=== PATIENT | female | born 1945 | race Caucasian/White ===

== ENCOUNTER 2019-05-25 14:42 | Outpatient (RCR) | payer OTHER, SELFPAY | END 2019-05-25 23:59 | disposition home or self-care (01) | LOC: ANHAUDIO 14:42 | PROVIDERS: PCP Physician Assistant; Visit Provider Physician Assistant | DX: Z46.1 Encounter for fitting and adjustment of hearing aid (principal) | CPT/HCPCS: 92593 ==

== ENCOUNTER 2019-11-08 09:21 | Emergency (ER) | payer MEDICARE, OTHER, SELFPAY ==
[2019-11-08 09:40] VITALS: BP 149/72; PULSE 60; RESP 16; TEMP 36.1; O2SAT 99
--- NOTE | 2019-11-08 09:47 | ED.URI ---
HPI - URI/Sore Throat General Chief Complaint: Upper Respiratory Infection Stated Complaint: Allergies Time Seen by Provider: 11/08/19 09:41 Source: patient, RN notes reviewed and old records reviewed Mode of arrival: ambulatory Limitations: no limitations History of Present Illness HPI Narrative: Patient presents today complaining of nasal congestion, postnasal drip, rhinorrhea since May with occasional cough. States cough is worsened over the last couple of days. Reports intermittent shortness of breath. Denies fever, ear pain, headache, nausea or vomiting. No known COVID-19 exposure. She has been using Zyrtec, Mucinex, and Flonase without much relief. MD elicited complaint: nasal congestion Related Data Allergies Allergy/AdvReac Type Severity Reaction Status Date / Time Sulfa (Sulfonamide Allergy Severe Swelling Verified 11/08/19 09:39 Antibiotics) nabumetone Allergy Intermediate raises BP Verified 11/08/19 09:39 Estrogens Allergy Mild rash Verified 11/08/19 09:39 Review of Systems Review of Systems: Narrative: CONSTITUTIONAL: Denies body aches, fever, chills, or sweats. EYES: Denies visual changes, redness, or discharge. ENT: Denies sore throat, or otalgia.+ Congestion, rhinorrhea, postnasal drip CARDIOVASCULAR: Denies chest pain, palpitations, or edema. RESPIRATORY: + Cough, intermittent shortness of breath GASTROINTESTINAL: Denies abdominal pain, nausea, vomiting, or diarrhea. GENITOURINARY: Denies dysuria or hematuria. SKIN: Denies rash, itching, or wounds. MUSCULOSKELETAL: Denies back pain, joint pain, or myalgia. NEUROLOGIC: Denies headache, numbness, tingling, or weakness. PSYCH: Denies depression or anxiety. [facility] Past Medical History Medical History (Updated 11/08/19 @ 09:50 by Mya Ritter, [employer]PER[employer], ) Seasonal allergies Social History Social History Smoking status: Never smoker Second hand tobacco smoke exposure: No Alcohol intake: current Gender identity (if verbalized by the patient): Female Comments At time of signature, I have reviewed and agree with nursing past medical, surgical, social and family history unless otherwise noted. Please see nursing chart for further information. There is no relevant family history pertinent to the presenting complaint Exam Narrative: Exam Narrative: GENERAL: Well-appearing, well-nourished, and in no acute distress. HEAD: Normocephalic, atraumatic. EYES: EOMI. No redness or drainage. Conjunctivae normal. ENT: Mucous membranes pink and moist. Nares mildly congested. No rhinorrhea. TMs normal bilaterally. Throat normal. Uvula midline. NECK: Normal AROM. Supple. No lymphadenopathy. CHEST: No respiratory distress. Clear to auscultation. HEART: Regular rate and rhythm. No murmur appreciated. Normal peripheral pulses. EXTREMITIES: Normal range of motion. No edema. SKIN: Warm, dry, no rash. Capillary refill normal. Normal skin turgor. NEURO: No focal deficits. Alert and oriented x3. Gait steady. PSYCH: Normal affect. No signs of depression or anxiety. Course Vital Signs Vital signs: Vital Signs Temperature 96.9 F L 11/08/19 09:40 Pulse Rate 60 11/08/19 09:40 Respiratory Rate 16 11/08/19 09:40 Blood Pressure 149/72 H 11/08/19 09:40 Pulse Oximetry 99 11/08/19 09:40 Temperature 96.9 F L 11/08/19 09:40 Pulse Rate 60 11/08/19 09:40 Respiratory Rate 16 11/08/19 09:40 Blood Pressure 149/72 H 11/08/19 09:40 Pulse Oximetry 99 11/08/19 09:40 Reviewed. Pt has been instructed to follow up with her PCP regarding her elevated blood pressure today. MDM - URI/Sore Throat Differential Diagnosis Differential diagnosis: Likely upper respiratory infection, otitis media, sinusitis, viral infection, bronchitis and other (Allergic rhinitis) Medical Records Attestation: I reviewed the patient's medical records. Critical Care Time Critical Care Time Critical Care T
== END 2019-11-08 10:04 | disposition home or self-care (01) ==
PROVIDERS: Emergency Provider Nurse Practitioner; PCP Internal Medicine
DX: J30.9 Allergic rhinitis, unspecified (principal)
CPT/HCPCS: 99213; G0463

== ENCOUNTER 2019-12-04 12:25 | Outpatient (RCR) | payer OTHER, SELFPAY | END 2019-12-04 23:59 | disposition home or self-care (01) | LOC: ANHAUDIO 12:25 | PROVIDERS: PCP Physician Assistant; Visit Provider Physician Assistant | DX: Z46.1 Encounter for fitting and adjustment of hearing aid (principal) | CPT/HCPCS: 92593 ==

== ENCOUNTER 2019-12-17 07:58 | Outpatient (CLI) | payer MEDICARE, OTHER, SELFPAY ==
--- NOTE | ~2019-12-17 | MM_ITS ---
EXAMINATION: MM screening lilli BI w marlyn HISTORY: Screening mammogram, family history of breast cancer in her mother. TECHNIQUE: Craniocaudal and mediolateral oblique 3-D tomosynthesis images were obtained and synthetic 2-D images were generated. CAD analysis was submitted and interpreted. COMPARISON: 10/31/2018, 10/29/2017, 10/18/2016 BREAST PARENCHYMAL COMPOSITION: There are scattered areas of fibroglandular density. FINDINGS: A stable benign mass is noted in the anterior third of the right breast. There is no eviden ce of suspicious mass, calcification, or architectural distortion to suggest malignancy in either erich ast. There has been no suspicious interval change. IMPRESSION: 1. No mammographic evidence of malignancy. 2. Recommend routine screening mammography in one year. BI-RADS Category 2: Benign finding(s). Reviewed, dictated and finalized at location A.
== END 2019-12-17 07:59 | disposition home or self-care (01) ==
PROVIDERS: PCP Physician Assistant; Visit Provider Physician Assistant
DX: Z12.31 Encounter for screening mammogram for malignant neoplasm of breast (principal)
CPT/HCPCS: 77063; 77067

== ENCOUNTER 2019-12-17 08:51 | Outpatient (CLI) | payer MEDICARE, OTHER, SELFPAY | END 2019-12-17 08:52 | disposition home or self-care (01) | LOC: ANHAUDIO 08:53 | PROVIDERS: PCP Physician Assistant; Visit Provider Physician Assistant | DX: H90.3 Sensorineural hearing loss, bilateral (principal) | CPT/HCPCS: 77063; 77067; 92557; 92567 ==

== ENCOUNTER 2020-05-20 10:57 | Outpatient (CLI) | payer MEDICARE, OTHER, SELFPAY ==
--- NOTE | ~2020-05-20 | XR_ITS ---
EXAMINATION: XR knee LT 3V DATE: 05/20/2020 11:19 INDICATION: Left knee pain. TECHNIQUE: 3 views of left knee were obtained. COMPARISON: Left knee radiograph 08/27/2016 FINDINGS: Bone alignment is normal. No fracture. There is mild tricompartmental osteoarthritis. No kn ee joint effusion. IMPRESSION: 1. Mild left knee osteoarthritis. Reviewed, dictated and finalized at location A. CE AGENT
== END 2020-05-20 10:58 | disposition home or self-care (01) ==
LOC: ANHIMG 11:00
PROVIDERS: PCP Physician Assistant; Visit Provider Physician Assistant
DX: M17.12 Unilateral primary osteoarthritis, left knee (principal)
CPT/HCPCS: 73562

== ENCOUNTER 2020-06-16 12:37 | Outpatient (CLI) | payer MEDICARE, OTHER, SELFPAY ==
--- NOTE | ~2020-06-16 | US_ITS ---
EXAMINATION: US soft tissue LE LT DATE: 06/16/2020 12:57 INDICATION: Left knee pain after activities. Assess for Lance's cyst. TECHNIQUE: Multiple grayscale and Doppler ultrasound images of the left popliteal fossa were obtained . COMPARISON: Left knee radiographs dated 05/20/2020 FINDINGS/IMPRESSION: No abnormal masses or fluid collections identified at the left popliteal fossa. Specifically no Lance 's cyst identified. Reviewed, dictated and finalized at location A.
== END 2020-06-16 12:38 | disposition home or self-care (01) ==
PROVIDERS: PCP Physician Assistant; Visit Provider Physician Assistant
DX: M25.562 Pain in left knee (principal)
CPT/HCPCS: 76882

== ENCOUNTER 2021-01-03 16:09 | Outpatient (CLI) | payer MEDICARE, OTHER, SELFPAY ==
--- NOTE | ~2021-01-03 | MM_ITS ---
EXAMINATION: MM screening lilli BI w marlyn HISTORY: Screening mammogram TECHNIQUE: Craniocaudal and mediolateral oblique 3-D tomosynthesis images were obtained and synthetic 2-D images were generated. CAD analysis was submitted and interpreted. COMPARISON: 12/17/2019, 10/31/2018, 10/29/2017 bilateral digital screening mammogram examinations BREAST PARENCHYMAL COMPOSITION: There are scattered areas of fibroglandular density. FINDINGS: Scattered bilateral benign calcifications are again noted. An irregular 8 mm opacity is suggested in the lower inner right breast (MLO Tomosynthesis image 59/85 ). Diagnostic right mammogram is recommended, with ultrasound if required. Otherwise there is no evidence of suspicious mass, calcification, or architectural distortion to sugg est malignancy in either breast. There has been no other suspicious interval change. IMPRESSION: 1. Lower inner quadrant right breast 8 mm irregular opacity 2. Diagnostic right mammogram is recommended, with ultrasound if required BI-RADS Category 0: Incomplete: Needs additional imaging evaluation. Reviewed, dictated and finalized at location A.
== END 2021-01-03 16:10 | disposition home or self-care (01) ==
LOC: ANHIMG 16:11
PROVIDERS: PCP Physician Assistant; Visit Provider Physician Assistant
DX: Z12.31 Encounter for screening mammogram for malignant neoplasm of breast (principal); R92.8 Other abnormal and inconclusive findings on diagnostic imaging of breast
CPT/HCPCS: 77063; 77067

== ENCOUNTER 2021-01-24 12:07 | Outpatient (CLI) | payer MEDICARE, OTHER, SELFPAY ==
--- NOTE | ~2021-01-24 | MMUS_ITS ---
EXAMINATION: MM diagnostic lilli RT w marlyn, US breast RT complete HISTORY: Lower inner quadrant right breast 8 mm irregular opacity on 01/03/2021 screening mammogram TECHNIQUE: Additional 3-D tomosynthesis images of the right breast were performed and synthetic 2-D i mages were generated. CAD analysis was submitted and interpreted. High resolution complete right eliana st ultrasound including all 4 quadrants and subareolar area was performed. COMPARISON: 01/03/2021 bilateral screening mammogram FINDINGS: MAMMOGRAPHIC FINDINGS: There is a circumscribed sonolucent millimeter opacity in the lower mid outer right breast (MLO Tomos ynthesis image 23/75). Focal 2 5 x 15 mm mammographic irregularity in the lower inner left breast (ML Tomosynthesis image 21 /75. ULTRASOUND: Right breast: 5 x 7 mm circumscribed sonolucent lesion with through transmission, consistent with be nign cyst. No other suspicious mass or any suspicious shadowing is detected. IMPRESSION: 1. Benign finding 2. Routine annual mammographic screening is recommended. BIRADS Category 2: Benign Reviewed, dictated and finalized at location A. [employer] IMPRESSION: 1. Benign finding 2. Routine annual mammographic screening is recommended. BIRADS Category 2: Benign
== END 2021-01-24 12:08 | disposition home or self-care (01) ==
PROVIDERS: PCP Physician Assistant; Visit Provider Physician Assistant
DX: R92.8 Other abnormal and inconclusive findings on diagnostic imaging of breast (principal)
CPT/HCPCS: 76641; 77061; 77065; G0279

== ENCOUNTER 2021-05-17 10:56 | Outpatient (CLI) | payer MEDICARE, SELFPAY | END 2021-05-17 10:57 | disposition home or self-care (01) | LOC: ANHAUDIO 10:59 | PROVIDERS: PCP Physician Assistant; Visit Provider Physician Assistant | DX: H90.3 Sensorineural hearing loss, bilateral (principal) | CPT/HCPCS: 92557; 92567 ==

== ENCOUNTER 2021-08-06 08:02 | Emergency (ER) | payer MEDICARE, SELFPAY ==
[2021-08-06 08:10] VITALS: BP 133/88; PULSE 97; RESP 16; TEMP 37.2; O2SAT 97
--- NOTE | 2021-08-06 08:10 | ED.URI ---
HPI - URI/Sore Throat General Chief Complaint: Upper Respiratory Infection Stated Complaint: cough/nausea/congestion Time Seen by Provider: 08/06/21 08:10 Source: patient, family, RN notes reviewed and old records reviewed Mode of arrival: ambulatory Limitations: no limitations History of Present Illness HPI Narrative: 76-year-old female presents to the [facility] with cough, nasal congestion. Patient states her symptoms are worse at night. Has having to sleep sitting up. Denies fevers, chest pain, abdominal pain. Patient states that she returned from [place] a week ago, symptoms started 3 days ago on . Takes Zyrtec daily. No treatment prior to arrival Related Data Home Medications Medication Instructions Recorded Confirmed cetirizine 10 mg tablet 5 mg PO DAILY PRN 11/18/19 09/15/20 fluticasone propionate 50 1 spray NASAL DAILY 11/18/19 09/15/20 mcg/actuation nasal spray,suspension hydroxyzine HCl 25 mg tablet 25 mg PO .HS PRN tablet 01/26/21 01/26/21 ketoconazole 2 % topical cream 1 applic TOPICAL DAILY 01/26/21 01/26/21 terbinafine HCl 250 mg tablet 250 mg PO DAILY 01/26/21 01/26/21 Allergies Allergy/AdvReac Type Severity Reaction Status Date / Time Sulfa (Sulfonamide Allergy Severe Swelling Verified 01/26/21 09:04 Antibiotics) nabumetone Allergy Intermediate raises BP Verified 01/26/21 09:04 Estrogens Allergy Mild rash Verified 01/26/21 09:04 ibuprofen [From Motrin] AdvReac vomiting Verified 01/26/21 09:04 Review of Systems Review of Systems: All systems reviewed & are unremarkable except as noted in HPI and below Constitutional: Constitutional: Reports no additional constitutional complaints, Denies chills, Denies fever(s) and Denies headache(s) Eyes: Eyes: Reports no additional eye complaints ENT: Reports as per HPI, Denies vertigo, Denies dizziness, Denies headache(s), Reports nasal congestion and Denies sore throat Cardiovascular: Cardiovascular: Reports no additional cardiovascular complaints, Denies chest pain, Denies syncope, Denies rapid heart rate and Denies dyspnea Respiratory: Respiratory: Reports as per HPI, Reports cough, Denies dyspnea and Denies wheezing Gastrointestinal: Gastrointestinal: Reports no additional gastrointestinal complaints, Denies abdominal pain, Denies diarrhea, Denies nausea and Denies vomiting Musculoskeletal: Musculoskeletal: Reports no additional musculoskeletal complaints and Denies numbness Integumentary/Breasts: Skin/Breast: Reports system reviewed and no additional complaints, except as docu Neurologic: Reports system reviewed and no additional complaints, except as documented, Denies vertigo, Denies dizziness, Denies syncope, Denies headache(s), Denies focal weakness and Denies numbness Psychiatric: Psychiatric: Reports no additional psychiatric complaints Allergic/Immunologic: Allergic/Immunologic: Reports no additional allergic/immunologic complaints and Denies wheezing PMFSH Past Medical History Medical History History of enlarged tonsils Seasonal allergies Surgical History Surgical History History of hysterectomy (~01/2020) History of lumpectomy History of tubal ligation (Unknown) Family History Family History Father Cerebrovascular accident Patient's father is Sibling Family history of arthritis Family history of malignant neoplasm of esophagus Patient's brother is Mother Family history of malignant neoplasm of breast in first degree relative Patient's mother is Social History Social History Smoking status: Never smoker Second hand tobacco smoke exposure: No Alcohol intake: current Gender identity (if verbalized by the patient): Female Comme
== END 2021-08-06 08:28 | disposition home or self-care (01) ==
PROVIDERS: Emergency Provider Nurse Practitioner; PCP Physician Assistant
DX: R09.82 Postnasal drip (principal); J30.9 Allergic rhinitis, unspecified
CPT/HCPCS: 99213; G0463

== ENCOUNTER 2021-12-26 10:47 | Outpatient (CLI) | payer MEDICARE, SELFPAY ==
--- NOTE | ~2021-12-26 | XR_ITS ---
EXAMINATION: XR chest 2V DATE: 12/26/2021 11:14 INDICATION: Atherosclerotic heart disease of [place] coronary arteries TECHNIQUE: PA and lateral views of the chest are obtained. COMPARISON: 02/24/2019 FINDINGS: The lungs are free of acute opacities. No pleural effusion or pneumothorax. The cardiomedia stinal silhouette is normal. There is mild thoracic spondylosis. IMPRESSION: 1. No acute cardiopulmonary abnormality. Reviewed, dictated and finalized at location A.
[2021-12-26 11:06] LABS: Basophils Absolute Auto 0.1 K/mm3 (0.0-0.1); Basophils Percent Auto 0.9 % (0.2-1.2); Eosinophils Absolute Auto 0.1 K/mm3 (0-0.3); Eosinophils Percent Auto 2.4 % (0-4.4); Hematocrit 42.5 % (37.0-47.0); Hemoglobin 14.1 g/dL (12.0-15.0); Lymphocytes Absolute Auto 2.29 K/mm3 (0.9-3.2); Lymphocytes Percent Auto 41.6 % (18.3-44.2); Mean Corpuscular HGB Conc 33.2 g/dl (32-36); Mean Corpuscular Hemoglobin 31.3 pg (26-34); Mean Corpuscular Volume 94.2 fl (80-100); Mean Platelet Volume 10.4 fl (7.4-10.4); Monocytes Absolute Auto 0.5 K/mm3 (0.1-0.6); Monocytes Percent Auto 8.9 % (2.6-8.5); Neutrophils Absolute Auto 2.6 K/mm3 (1.3-6.7); Neutrophils Percent Auto 46.2 % (45.5-73.1); Platelet Count Result 299 k/mm3 (150-375); Red Blood Count 4.51 M/mm3 (4.2-5.4); Red Cell Distribution Width 12.9 % (11.5-14.5); White Blood Count 5.5 K/mm3 (4.5-10.0)
[2021-12-26 11:31] LABS: Alanine Aminotransferase 33 U/L (6-35); Albumin Level 4.2 g/dL (3.5-5.1); Alkaline Phosphatase 71 U/L (38-126); Anion Gap 9 mmol/L (8-16); Aspartate Amino Transferase 28 U/L (14-36); Bilirubin,Total 0.4 mg/dL (0.2-1.3); Blood Urea Nitrogen 19 mg/dL (7-17); Carbon Dioxide 23 mmol/L (22-30); Chloride 109 mmol/L (98-107); Cholesterol 200 mg/dL (0-200); Estimated Glomerular Filt Rate > 60; Glucose 95 mg/dL (65-110); HDL Direct 52 mg/dL; Potassium 4.2 mmol/L (3.4-5.0); Sodium 141 mmol/L (137-145); Triglycerides 121 mg/dL (<150)
[2021-12-26 11:43] LABS: LDL Cholesterol Direct 104 mg/dL
[2021-12-26 12:38] LABS: Folic Acid 7.7 ng/mL (2.76->20)
== END 2021-12-26 10:48 | disposition home or self-care (01) ==
LOC: ANHLAB 10:51
PROVIDERS: PCP Physician Assistant; Visit Provider Physician Assistant
DX: E78.5 Hyperlipidemia, unspecified (principal); R53.83 Other fatigue; I25.10 Atherosclerotic heart disease of native coronary artery without angina pectoris
CPT/HCPCS: 36415; 71046; 80053; 80061; 82607; 82746; 84443; 85025

== ENCOUNTER 2022-01-12 15:44 | Emergency (ER) | payer MEDICARE, SELFPAY ==
[2022-01-12 15:53] VITALS: BP 130/85; PULSE 81; RESP 16; TEMP 36.1; O2SAT 100
--- NOTE | 2022-01-12 16:02 | ED.GENADULT ---
HPI - General Adult General Chief complaint: Weakness Stated complaint: not feeling well Time Seen by Provider: 01/12/22 16:02 Source: patient and RN notes reviewed Mode of arrival: ambulatory Limitations: no limitations History of Present Illness HPI narrative: 76-year-old female presents to the [facility] with complaints weakness near syncopal episode. Since the having her blood pressure medication changed 3 weeks ago. Patient reports multiple near syncopal episodes and intermittent dizziness that have been getting worse over the last several days sometimes associated with a headache on the right side. Denies any blurry vision or change in vision. Patient denies any chest pain but states that sometimes it feels like her heart is beating really fast and beating out of her chest. Patient states that she was [place] her [place], states she and felt really dizzy with leg weakness and felt like she was going to pass out. Denies any loss of consciousness. Has not fallen or hit head. Related Data Home Medications Medication Instructions Recorded Confirmed fluticasone furoate 27.5 2 spray intranasal DAILY 08/07/21 09/16/21 mcg/actuation nasal spray,suspension (Flonase Sensimist) azelastine 137 mcg (0.1 %) nasal intranasal 01/12/22 spray aerosol levocetirizine 2.5 mg/5 mL oral mg 01/12/22 solution (Xyzal) Allergies Allergy/AdvReac Type Severity Reaction Status Date / Time Sulfa (Sulfonamide Allergy Severe Swelling Verified 12/29/21 09:30 Antibiotics) nabumetone Allergy Intermediate raises BP Verified 12/29/21 09:30 Estrogens Allergy Mild rash Verified 12/29/21 09:30 ibuprofen [From Motrin] AdvReac vomiting Verified 12/29/21 09:30 Review of Systems Review of Systems: All systems reviewed & are unremarkable except as noted in HPI and below Constitutional: Constitutional: Reports no additional constitutional complaints, Denies chills and Denies fever(s) Eyes: Eyes: Reports no additional eye complaints ENT: Reports system reviewed and no additional complaints, except as documented Cardiovascular: Cardiovascular: Reports as per HPI and Reports rapid heart rate Respiratory: Respiratory: Reports no additional respiratory complaints Gastrointestinal: Gastrointestinal: Reports no additional gastrointestinal complaints Musculoskeletal: Musculoskeletal: Reports no additional musculoskeletal complaints Integumentary/Breasts: Skin/Breast: Reports system reviewed and no additional complaints, except as docu Neurologic: Reports as per HPI, Reports dizziness, Reports syncope (Near syncopal), Denies focal weakness, Denies numbness and Denies weakness Psychiatric: Psychiatric: Reports no additional psychiatric complaints Allergic/Immunologic: Allergic/Immunologic: Reports no additional allergic/immunologic complaints [facility] Past Medical History Medical History History of enlarged tonsils Seasonal allergies Surgical History Surgical History History of hysterectomy (~01/2020) History of lumpectomy History of tubal ligation (Unknown) Family History Family History Father Cerebrovascular accident Patient's father is Sibling Family history of arthritis Family history of malignant neoplasm of esophagus Patient's brother is Mother Family history of malignant neoplasm of breast in first degree relative Patient's mother is Social History Social History Smoking status: Never smoker Second hand tobacco smoke exposure: No Alcohol intake: current Gender identity (if verbalized by the patient): Female Comments At the time of my signature, I reviewed and agree with the nursing past medical, surgical, social, and family h
--- NOTE | 2022-01-12 16:15 | ECG_ITS ---
Measurements Intervals [place] Rate: 76 P: 75 WI: 159 QRS: 48 QRSD: 83 T: 69 QT: 360 QTc: 407 Interpretive Statements SINUS RHYTHM NORMAL ECG NO PREVIOUS ECG AVAILABLE FOR COMPARISON Electronically Signed On 01-12-2022 17:09:29 CDT by Stuart Marcos M.D.
== END 2022-01-12 16:22 | disposition short-term general hospital (02) ==
LOC: EXPCOLL 15:47
PROVIDERS: Emergency Provider Nurse Practitioner; PCP Physician Assistant
DX: R42 Dizziness and giddiness (principal)
CPT/HCPCS: 93005; 99213; G0463

== ENCOUNTER 2022-01-12 16:38 | Emergency (ER) | payer MEDICARE, SELFPAY ==
[2022-01-12] VITALS (7 sets, daily range): BP systolic 146–182; BP diastolic 76–106; PULSE 68–89; RESP 14–18; TEMP 36.5; O2SAT 96–100
--- NOTE | ~2022-01-12 | XR_ITS ---
EXAMINATION: XR chest 2V DATE: 01/12/2022 18:00 INDICATION: Dizziness. Weakness. TECHNIQUE: Frontal and lateral views of the chest were obtained. COMPARISON: Chest 2 views 12/26/2021 FINDINGS: There is mild scarring at the lung apices. No pleural effusion or pneumothorax. The heart s ize is normal. IMPRESSION: 1. Stable mild scarring at the lung apices. Reviewed, dictated and finalized at location A.
--- NOTE | ~2022-01-12 | CT_ITS ---
EXAMINATION: CT brain wo con DATE: 01/12/2022 22:02 INDICATION: Headache. Lightheadedness. TECHNIQUE: Computed tomography (CT) of the head was performed without intravenous contrast. The mA wa s adjusted according to patient size. Iterative reconstruction technique was employed. The dose-lengt h product was 529.67 mGy-cm. COMPARISON: None FINDINGS: There is no intracranial hemorrhage, acute infarction, or abnormal intracranial mass lesion . The ventricles are normal in size. There are likely changes of ocular lens replacement surgeries. T here is mucosal thickening in the paranasal sinuses. 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 Ther e is a left mastoid effusion. IMPRESSION: 1. Normal brain. Reviewed, dictated and finalized at location A. IMPRESSION: 1. Normal brain.
--- NOTE | 2022-01-12 17:35 | ECG_ITS ---
Measurements Intervals [place] Rate: 79 P: 59 HI: 149 QRS: 22 QRSD: 82 T: 61 QT: 354 QTc: 406 Interpretive Statements SINUS RHYTHM COMPARED TO ECG 01/12/2022 16:05:43 NO SIGNIFICANT CHANGES Electronically Signed On 01-13-2022 13:05:28 CDT by José Luis Cleary M.D.
[2022-01-12 18:02] LABS: Basophils Absolute Auto 0.1 K/mm3 (0.0-0.1); Basophils Percent Auto 0.7 % (0.2-1.2); Eosinophils Absolute Auto 0.1 K/mm3 (0-0.3); Eosinophils Percent Auto 1.9 % (0-4.4); Hematocrit 44.8 % (37.0-47.0); Hemoglobin 15.2 g/dL (12.0-15.0); Immature Granulocyte Absolute 0.02 K/mm3 (0.00-0.031); Immature Granulocyte Percent A 0.3 % (0-0.5); Lymphocytes Absolute Auto 2.69 K/mm3 (0.9-3.2); Lymphocytes Percent Auto 35.7 % (18.3-44.2); Mean Corpuscular HGB Conc 33.9 g/dl (32-36); Mean Corpuscular Hemoglobin 31.1 pg (26-34); Mean Corpuscular Volume 91.8 fl (80-100); Mean Platelet Volume 10.3 fl (7.4-10.4); Monocytes Absolute Auto 0.6 K/mm3 (0.1-0.6); Monocytes Percent Auto 7.6 % (2.6-8.5); Neutrophils Absolute Auto 4.1 K/mm3 (1.3-6.7); Neutrophils Percent Auto 53.8 % (45.5-73.1); Platelet Count Result 340 k/mm3 (150-375); Red Blood Count 4.88 M/mm3 (4.2-5.4); Red Cell Distribution Width 12.8 % (11.5-14.5); White Blood Count 7.5 K/mm3 (4.5-10.0)
[2022-01-12 18:12] LABS: Alanine Aminotransferase 35 U/L (6-35); Albumin Level 4.8 g/dL (3.5-5.1); Alkaline Phosphatase 87 U/L (38-126); Anion Gap 17 mmol/L (8-16); Aspartate Amino Transferase 30 U/L (14-36); Bilirubin,Total 0.4 mg/dL (0.2-1.3); Blood Urea Nitrogen 18 mg/dL (7-17); Calcium 9.1 mg/dL (8.4-10.2); Carbon Dioxide 23 mmol/L (22-30); Chloride 104 mmol/L (98-107); Estimated CRCL calculation 53 ml/min; Estimated Glomerular Filt Rate > 60; Glucose 109 mg/dL (65-110); Potassium 3.6 mmol/L (3.4-5.0); Sodium 144 mmol/L (137-145)
[2022-01-12 18:21] LABS: Appearance Urine Clear (Clear); Bilirubin Urine Negative (Negative); Blood Urine Negative (Negative); Color Urine Yellow (Yellow); Glucose Urine UA Negative (Negative); Ketones Urine Negative (Negative); Leukocyte Esterase Ur Negative LEU/UL (Negative); Nitrate Urine Negative (Negative); Protein Urine Negative (Negative); Urobilinogen Urine 0.2 mg/dL (<2.0)
[2022-01-12 18:27] LABS: RBC Urine 0-2 /hpf (0-2); Squamous Epithelial Cell Urine Rare /hpf (Few); WBC Urine 0-3 /hpf
[2022-01-12 18:32] LABS: Add Urine Microscopic? NO
--- NOTE | 2022-01-12 23:09 | ED.GENADULT ---
HPI - General Adult General Chief complaint: Nausea/Vomiting/Diarrhea Stated complaint: lightheaded, nausea, tired Time Seen by Provider: 01/12/22 21:35 History of Present Illness HPI narrative: Patient is a 76-year-old female who presents the emergency department with chief complaint of headache. Patient reports that she has been having a pressure sensation in her head and reports that recently she was diagnosed with hypertension. Patient was initially started on 50 mg of losartan and then subsequently has been increased to 100 mg of losartan. Patient states that she has had a little bit of a queasy sensation in her abdomen but no nausea vomiting or severe abdominal pain. The patient also reports that she has had an aching-like sensation in the right side of her head. Patient states this has been ongoing for some time now approximately 3 weeks. The patient has seen her primary care provider but has not had imaging of her head. Related Data Allergies Allergy/AdvReac Type Severity Reaction Status Date / Time Sulfa (Sulfonamide Allergy Severe Swelling Verified 01/12/22 21:09 Antibiotics) nabumetone Allergy Intermediate raises BP Verified 01/12/22 21:09 Estrogens Allergy Mild rash Verified 01/12/22 21:09 ibuprofen [From Motrin] AdvReac vomiting Verified 01/12/22 21:09 Review of Systems Review of Systems: A 10 system review of systems was completed on the patient and is negative except for what is stated in the HPI. Nursing and ancillary documentation was reviewed. [facility] Past Medical History Medical History History of enlarged tonsils Seasonal allergies Surgical History Surgical History History of hysterectomy (~01/2020) History of lumpectomy History of tubal ligation (Unknown) Family History Family History Father Cerebrovascular accident Patient's father is Sibling Family history of arthritis Family history of malignant neoplasm of esophagus Patient's brother is Mother Family history of malignant neoplasm of breast in first degree relative Patient's mother is Social History Social History Smoking status: Never smoker Second hand tobacco smoke exposure: No Alcohol intake: current Gender identity (if verbalized by the patient): Female Exam Narrative: GENERAL: Well-appearing, well-nourished, and in no acute distress. HEAD: Normocephalic, atraumatic. EYES: PERRLA and EOMI. ENT: Nares clear, no rhinorrhea or epistaxis. Mucous membranes moist. NECK: Supple. CHEST: Clear to auscultation. No respiratory distress. HEART: Regular rate and rhythm. No murmur heard. Normal peripheral pulses. ABDOMEN: Soft, nontender, nondistended, normal active bowel sounds. EXTREMITIES: Normal range of motion. No edema. SKIN: Warm, dry, no rash. NEURO: No focal deficits. Alert and oriented x3. PSYCH: Normal mood and affect. Course Course Emergency Course: CT head showed no evidence of acute intercranial pathology. EKG shows sinus rhythm rate of [address] elevation or ST depression Vital Signs Vital signs: Vital Signs Temperature 36.5 C 01/12/22 17:33 Pulse Rate 89 01/12/22 17:33 Respiratory Rate 14 01/12/22 17:33 Blood Pressure 153/106 H 01/12/22 17:33 Pulse Oximetry 98 01/12/22 17:33 Oxygen Delivery Room Air 01/12/22 17:33 Temperature 36.5 C 01/12/22 17:33 Pulse Rate 68 01/12/22 23:16 Respiratory Rate 18 01/12/22 23:16 Blood Pressure 150/76 H 01/12/22 23:16 Pulse Oximetry 99 01/12/22 23:16 Oxygen Delivery Room Air 01/12/22 17:33 Medical Decision Making Vital Signs Vital Signs: Vital Signs Temperature 36.5 C 01/12/22 17:33 Pulse Rate 89
[2022-01-12 23:58] LABS: Troponin I < 0.012 ng/mL (0.000-0.034)
[2022-01-13 00:24] VITALS: BP 103/77; PULSE 78; RESP 18; O2SAT 99
== END 2022-01-13 00:20 | disposition home or self-care (01) ==
PROVIDERS: Emergency Medicine; Emergency Provider Emergency Medicine; PCP Physician Assistant
DX: I10 Essential (primary) hypertension (principal); R51.9 Headache, unspecified; R11.0 Nausea
CPT/HCPCS: 36415; 70450; 71046; 80053; 81003; 84484; 85025; 93005; 99284

== ENCOUNTER 2022-03-21 07:39 | Outpatient (CLI) | payer MEDICARE, SELFPAY ==
--- NOTE | ~2022-03-21 | MM_ITS ---
EXAMINATION: MM screening [facility] BI w marlyn HISTORY: Screening mammogram TECHNIQUE: Craniocaudal and mediolateral oblique 3-D tomosynthesis images were obtained and synthetic 2-D images were generated. CAD analysis was submitted and interpreted. COMPARISON: 01/24/2021, 01/03/2021, 12/17/2019 BREAST PARENCHYMAL COMPOSITION: There are scattered areas of fibroglandular density. FINDINGS: No suspicious mass, calcification, or architectural distortion are identified in either erich ast to suggest malignancy. There has been no suspicious interval change. IMPRESSION: 1. No mammographic evidence of malignancy. 2. Recommend routine screening mammography in one year. BI-RADS Category 1: Negative Reviewed, dictated and finalized at location A. 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
== END 2022-03-21 07:40 | disposition home or self-care (01) ==
LOC: ANHIMG 07:41
PROVIDERS: PCP Physician Assistant; Visit Provider Physician Assistant
DX: Z12.31 Encounter for screening mammogram for malignant neoplasm of breast (principal)
CPT/HCPCS: 77063; 77067

== ENCOUNTER 2022-06-01 14:00 | Outpatient (RCR) | payer MEDICARE, SELFPAY | END 2022-06-01 23:59 | disposition home or self-care (01) | LOC: ANHAUDIO 14:00 | PROVIDERS: PCP Physician Assistant; Visit Provider Physician Assistant | DX: Z46.1 Encounter for fitting and adjustment of hearing aid (principal) | CPT/HCPCS: 92593 ==

== ENCOUNTER 2022-08-24 12:17 | Outpatient (CLI) | payer MEDICARE, SELFPAY ==
--- NOTE | ~2022-08-24 | XR_ITS ---
AP view of the pelvis and AP and lateral views of the right hip Clinical history: Pain Findings: No acute fracture or dislocation is seen. Osseous alignment is anatomic. Bilateral hip and SI joint spaces are preserved. Soft tissues are unremarkable. Impression: No significant abnormality is seen. Reviewed, dictated and finalized at [facility]. Impression: No significant abnormality is seen.
--- NOTE | ~2022-08-24 | XR_ITS ---
XR lumbar spine 6V w bending DATE: 08/24/2022 12:50 INDICATION: Back pain, sciatica TECHNIQUE: AP, bilateral oblique, lateral, coned lateral lumbosacral and standing flexion and extensi on views COMPARISON: None FINDINGS: There is osteopenia. There is mild degenerative disc disease at L1-2, L2-3 and L3-4. There is moderately severe loss of interspace height and minimal vacuum phenomenon at L4-5. L5-S1 interspace is well preserved. No fracture or bone destruction, spondylolysis or spondylolisthesis. The lumbar pedicles are intact. No instability on flexion or extension. The sacroiliac joints appear normal. IMPRESSION: Moderately severe degenerative disease at L4-5; mild degenerative disc disease at L1-2, L 2-3, L3-4 Reviewed, dictated and finalized at location [] IMPRESSION: Moderately severe degenerative disease at L4-5; mild degenerative d isc disease at L1-2, L2-3, L3-4
== END 2022-08-24 12:18 | disposition home or self-care (01) ==
PROVIDERS: PCP Physician Assistant; Visit Provider Physician Assistant
DX: M51.36 Other intervertebral disc degeneration, lumbar region (principal); M25.561 Pain in right knee; M25.551 Pain in right hip; M54.30 Sciatica, unspecified side
CPT/HCPCS: 72114; 73502; 73562

== ENCOUNTER 2022-08-26 08:41 | Emergency (ER) | payer MEDICARE, SELFPAY ==
[2022-08-26 08:43] VITALS: BP 152/91; PULSE 94; RESP 16; TEMP 36.2; O2SAT 98
--- NOTE | 2022-08-26 08:47 | ED.BACK ---
HPI - Back Pain/Injury General Chief Complaint: Back Pain/Injury Stated Complaint: back pain Time Seen by Provider: 08/26/22 08:46 History of Present Illness HPI Narrative: Patient is a 77-year-old female who presents ER with right knee pain. Reports its been ongoing over the last week. She was seen by her PCP. She had an x-ray of her right hip/knees and low back. She is scheduled to have an MRI in the near future. She has been taking [place]. Pain is worse when she is at rest and worsens around 4:30 in the afternoon. It seems to improve if she is walking around. Denies any trauma. No swelling or redness to the knee. No fevers chills or sweats. Reports some tingling to the right thigh. Patient reports she cannot sleep and would like different pain medication which is [place] is not helping. Related Data Allergies Allergy/AdvReac Type Severity Reaction Status Date / Time Sulfa (Sulfonamide Allergy Severe Swelling Verified 08/26/22 09:22 Antibiotics) nabumetone Allergy Intermediate raises BP Verified 08/26/22 09:22 Estrogens Allergy Mild rash Verified 08/26/22 09:22 ibuprofen [From Motrin] AdvReac vomiting Verified 08/26/22 09:22 Review of Systems Constitutional: Constitutional: Denies chills and Denies fever(s) Musculoskeletal: Musculoskeletal: Reports back pain, Reports arthralgias, Denies joint swelling and Denies muscle cramps Neurologic: Denies focal weakness and Denies numbness Comments: Right thigh tingling PMFSH Past Medical History Medical History History of enlarged tonsils Seasonal allergies Surgical History Surgical History History of hysterectomy (~01/2020) History of lumpectomy History of tubal ligation (Unknown) Family History Family History Father Cerebrovascular accident Patient's father is Sibling Family history of arthritis Family history of malignant neoplasm of esophagus Patient's brother is Mother Family history of malignant neoplasm of breast in first degree relative Patient's mother is Social History Social History Smoking status: Never smoker Second hand tobacco smoke exposure: No Alcohol intake: current Substance use: unknown Lack of Transportation: No Lack of Food: Never True Current Housing: I Have Housing Concerned About Future Housing: No Difficulty Paying Gas/Electric Bills: No Difficulty Paying for Meds: No Currently Unemployed: Decline to Answer Education: Decline to Answer Difficulty w/ Childcare or Family Care: Decline to Answer Gender identity (if verbalized by the patient): Female Exam Narrative: GENERAL: Well-appearing, well-nourished, and in no acute distress. HEAD: Normocephalic, atraumatic. CHEST: Clear to auscultation. No respiratory distress. HEART: Regular rate and rhythm. Normal peripheral pulses. BACK: No reproducible midline or paraspinal muscle tenderness of the T/L-spine. EXTREMITIES: Normal range of motion. No edema. No effusion or joint line tenderness to the right knee. SKIN: Warm, dry, no rash. NEURO: Alert and oriented x3. PSYCH: Normal mood and affect. Course Course Emergency Course: Pain improved with Percocet and patient is able to sleep. Discussed we will start her on Medrol Dosepak and give her a few Percocets for home. Discharge. I have reviewed previous imaging. Vital Signs Vital signs: Vital Signs Temperature 97.2 F L 08/26/22 08:43 Pulse Rate 94 08/26/22 08:43 Respiratory Rate 16 08/26/22 08:43 Blood Pressure 152/91 H 08/26/22 08:43 Pulse Oximetry 98 08/26/22 08:43 Temperature 97.2 F L 08/26/22 08:43 Pulse Rate 94 08/26/22 08:43 Respiratory Rate 16 08/26/22 08:43 Bloo
[2022-08-26] MEDS: oxyCODONE/ACETAMINOPHEN (*CRX) 5-325 MG TABLET 1 TABLET PO (09:20)
[2022-08-26 11:33] VITALS: BP 142/74; PULSE 87; RESP 18; O2SAT 100
== END 2022-08-26 11:34 | disposition home or self-care (01) ==
PROVIDERS: Emergency Provider Emergency Medicine; PCP Physician Assistant
DX: M25.561 Pain in right knee (principal); M54.16 Radiculopathy, lumbar region; Z90.710 Acquired absence of both cervix and uterus
CPT/HCPCS: 99283; A9270

== ENCOUNTER 2022-09-01 13:26 | Outpatient (CLI) | payer MEDICARE, SELFPAY ==
--- NOTE | ~2022-09-01 | MR_ITS ---
MRI of the lumbar spine Clinical History: Radiculopathy Technique: Axial T2-weighted images, and sagittal T1-weighted, T2-weighted, and T2 fat-sat images wer e acquired. Findings: There is no fracture or subluxation of the lumbar spine. Vertebral bodies maintain normal h eight and alignment. No suspicious bone marrow signal abnormality seen. At L1-L2, there is no disc bulge or herniation. There is moderate facet arthropathy. No spinal canal stenosis or neural foraminal narrowing. At L2-L3, there is moderate facet arthropathy with minimal disc bulge. No central canal stenosis or n eural foraminal narrowing. At L3-L4, there is minimal disc bulge with moderate facet arthropathy. No central canal stenosis or d efinite neural foraminal narrowing. At L4-L5, there is no significant disc bulge or herniation. There is mild facet arthropathy. No centr al canal stenosis or neural foraminal narrowing. At L5-S1, there is no disc bulge or herniation. There is advanced facet arthropathy. No central canal stenosis or neural foraminal narrowing. Paravertebral soft tissues are unremarkable. Impression: Minimal degenerative changes, as above. Reviewed, dictated and finalized at location . Impression: Minimal degenerative changes, as above.
== END 2022-09-01 13:27 | disposition home or self-care (01) ==
PROVIDERS: PCP Physician Assistant; Visit Provider Physician Assistant
DX: M54.16 Radiculopathy, lumbar region (principal)
CPT/HCPCS: 72148

== ENCOUNTER 2022-10-16 08:00 | Outpatient (RCR) | payer MEDICARE, SELFPAY ==
--- NOTE | 2022-09-04 11:00 | PTOPEVAL1 ---
Assessment and note entered by Catherine Simental, PT Evaluation Information Assessment Status Evaluation Diagnosis sciatica Onset August 20, 2022 Subjective Information woke up with R leg pain-throb in leg and knee, saw ferdinand Desai script received, continued to have pain; to ER August 26, received oxycodone, helped sleep some; had MRI-- no longer taking oxycodone- made feel funny; using the thermacare heat pad with magnets and that helped; active lifestyle--do water aerobics, tia-chi, pickle ball; indep with all home and self care tasks; Reported Pain Level Pain Score Self Report Additional Pain Score Comments pain range in the past week 3-12/25; back pain, radicular intermittent into R LE to knee; back tight and hurts; increase pain with sleeping, 2-7 hours/night (norm for her 8 hours); sitting tolerance varies 1-30 min; decrease pain; change positions, thermacare heat pads with magnets; heat; Assessment PT Clinical Summary Cara has the diagnosis of sciatica, intermittent into R LE to knee. She has a history of chronic back pain, but about 2 weeks ago, woke up with R leg pain and went to ER. The pain has improved from initial onset, but is limiting her activity tolerance and sleeping. She has an active lifestyle, has fitness membership--does aquatic exercises and moose-chi classes. Oswestry self assessment functional score of 34% limitation. She has a vacation planned next week, driving to [place] and wants to feel better to enjoy her vacation trip. With the evaluation, she has tightness over R and L: hamstrings and anterior hip/quad muscles; weakness over trunk/abdominals; pain was not elicited with motions of the evaluation, but reported some cramps in hips. Standing posture with weight shift to L LE. Skilled PT services are indicated for modalities to decrease pain, therapeutic exercises to increase flexibility of hips and strengthen trunk, with education for home exercises, pain control and posture.
--- NOTE | 2022-09-04 11:02 | PCPTNOTE ---
pt will be out of town from September 13 to September 26;
--- NOTE | 2022-10-16 08:43 | PTOPDC ---
Assessment and note entered by Catherine Simental, PT Evaluation Information Assessment Status Discharge Diagnosis sciatica Onset August 20, 2022 Subjective Information Cara reports: she is doing much better, have started back with the water exercises and doing them without any problems; has been doing the exercises and stretches at home and they really help; wants to get back to playing pickleball and doing weight exercises at the gym; ready to be finished with therapy and do the exercises on her own. Reported Pain Level Pain Score Self Report Additional Pain Score Comments in the past week, has not had any pain in her back but some ache and soreness 1/10; no pain into R leg anymore; L knee gives her some trouble-feels like buckling sometimes; sitting for about 1 hour, then have to get up and move, legs hurt; Oswestry self assessment functional score of 8% limitation; not have as many leg cramps as before sleeping through the night, not awakening due to pain; Assessment PT Clinical Summary Cara has received 8 PT sessions. She has improved in all areas: pain decreased from 3-10/10 to 0-1/10; no radicular pain into R LE; sitting and sleeping tolerances- no longer awaken from sleep due to back pain; flexibility of hamstrings and anterior hip-quad muscles; trunk and LE strength; Oswestry self assessment functional score from 34% to 8% limitation in activity; education completed for pain management and self care, and HEP. The goals were achieved. Discharge PT services. Plan of Care PT Services Indicated No
== END 2022-10-16 10:07 | disposition home or self-care (01) ==
LOC: ANHPT 08:00
PROVIDERS: PCP Physician Assistant; Visit Provider Physician Assistant
DX: M54.30 Sciatica, unspecified side (principal)
CPT/HCPCS: 97110; 97161; 97530

== ENCOUNTER 2023-01-22 14:59 | Outpatient (RCR) | payer MEDICARE, SELFPAY | END 2023-01-22 23:59 | disposition home or self-care (01) | LOC: ANHAUDIO 14:59 | PROVIDERS: PCP Physician Assistant; Visit Provider Physician Assistant | DX: Z46.1 Encounter for fitting and adjustment of hearing aid (principal) | CPT/HCPCS: 92593 ==

== ENCOUNTER 2023-01-31 12:06 | Outpatient (CLI) | payer MEDICARE, SELFPAY | END 2023-01-31 12:07 | disposition home or self-care (01) | PROVIDERS: PCP Physician Assistant; Visit Provider Physician Assistant | DX: R53.83 Other fatigue (principal) | CPT/HCPCS: 36415; 82607; 82746; 84443 ==

== ENCOUNTER 2023-02-27 14:15 | Outpatient (CLI) | payer MEDICARE, SELFPAY ==
--- NOTE | ~2023-02-27 | XR_ITS ---
EXAMINATION: XR chest 2V DATE: 02/27/2023 14:33 INDICATION: Cough. Shortness of breath. TECHNIQUE: Frontal and lateral views of the chest were obtained. COMPARISON: Chest 2 views 01/12/2022 FINDINGS: There is mild scarring at the lung apices. No pleural effusion or pneumothorax. The heart s ize is normal. IMPRESSION: 1. Stable mild scarring at the lung apices. Reviewed, dictated and finalized at location A. [employer]
== END 2023-02-27 14:16 | disposition home or self-care (01) ==
PROVIDERS: PCP Physician Assistant; Visit Provider Physician Assistant
DX: R05.9 Cough, unspecified (principal); R91.8 Other nonspecific abnormal finding of lung field
CPT/HCPCS: 71046

== ENCOUNTER 2023-03-08 01:58 | Day surgery (SDC) | payer MEDICARE, SELFPAY ==
[2023-02-25 09:12] VITALS: BMI 31.6
--- NOTE | 2023-02-25 12:12 | SUR.PREOP ---
Patient called back after Pre op phone call had been completed and stated she took an at home Covid test since she was having allergy like symptoms and had just been out of country. She did report that her test did come back positive. It was told to her that we would call her back on 03/06/23 to see how she was feeling to see if she would need to have her procedure rescheduled for a later date.
--- NOTE | 2023-03-06 08:29 | SUR.PREOP ---
Patient called regarding upcoming procedure. Message left on patient's voicemail regarding appointment times.
--- NOTE | 2023-03-06 11:51 | PC.NURSE ---
Spoke with pt to see if she was recovered after having covid 02/25/23, states she tested negative on 03/02/23, feels much better and wants to proceed with colonoscopy. Pt states she has a little cough in morning on wakening but subsides quickly, does not feel like she has any congestion in her chest and no fever. Pt times reviewed and pt will proceed with prep 03/07/23 and procedure 03/08/23
--- NOTE | 2023-03-07 09:08 | WPDANESEPPF ---
Anes - Initial Pre Proc Eval Procedure: Operation Date: 03/08/23 10:30 Proposed Procedures p Colonoscopy - Jose Raul Edwards MD Date/Time: 03/07/23 09:08 Surgeon: Jose Raul Edwards MD Pre Op Diagnosis: Noninfective gastroenteritis and colitis, unspecif Patient Data Age: 77 Gender: F Height: 1.68 m Weight: 89 kg Allergies Allergy/AdvReac Type Severity Reaction Status Date / Time Sulfa (Sulfonamide Allergy Severe Swelling Verified 03/08/23 09:39 Antibiotics) nabumetone Allergy Intermediate raises BP Verified 03/08/23 09:39 Estrogens Allergy Mild rash Verified 03/08/23 09:39 ibuprofen [From Motrin] AdvReac vomiting Verified 03/08/23 09:39 Home Medications Medication Instructions Recorded Confirmed Type omeprazole 40 mg capsule,delayed 40 mg PO DAILY #90 caps 08/13/22 03/08/23 Rx release azelastine-fluticasone 137 mcg-50 1 spray intranasal DAILY 01/08/23 03/08/23 History mcg/spray nasal spray levocetirizine 5 mg tablet (Xyzal) 5 mg PO .PRN 01/08/23 03/08/23 History terbinafine HCl 250 mg tablet 250 mg PO DAILY 01/08/23 03/08/23 History losartan 25 mg tablet 25 mg PO BID #180 tabs 02/20/23 03/08/23 Rx nirmatrelvir 300 mg (150 mg See Rx Instructions PO .COMPLEX 02/25/23 03/08/23 Rx x2)-ritonavir 100 mg tablet,dose #30 ea pack (Paxlovid) Patient hx anesthesia problems: none Family hx anesthesia problems: none Results Review: All pre-operative results and documents have been reviewed as part of the pre-operative evaluation. [facility] Past Medical History Medical History (Updated 03/07/23 @ 09:09 by Moi De León DO) CAD (coronary artery disease) GERD (gastroesophageal reflux disease) History of enlarged tonsils Hyperlipidemia Hypertension PONV (postoperative nausea and vomiting) Seasonal allergies Surgical History Surgical History History of hysterectomy (~01/2020) History of lumpectomy History of tubal ligation (Unknown) Family History Family History Father Cerebrovascular accident Patient's father is Sibling Family history of arthritis Family history of malignant neoplasm of esophagus Patient's brother is Mother Family history of malignant neoplasm of breast in first degree relative Patient's mother is Social History Social History Smoking status: Never smoker Second hand tobacco smoke exposure: No Alcohol intake: current Substance use: unknown Substance use type: does not use Lack of Transportation: No Lack of Food: Never True Current Housing: I Have Housing Concerned About Future Housing: No Difficulty Paying Gas/Electric Bills: No Difficulty Paying for Meds: No Currently Unemployed: Decline to Answer Education: Decline to Answer Difficulty w/ Childcare or Family Care: Decline to Answer Living arrangements: other Additional living arrangements comments: with sp Gender identity (if verbalized by the patient): Female Anes - Eval Final PreProcedure Day of Procedure 03/07/23 09:08 Patient weight: obese Heart: regular rate and rhythm Lungs: clear to auscultation Airway: Mallampati scale class II Neurological: alert and oriented Last oral intake: >/= 8 hours ASA classification: III Emergent: no Anesthetic plan: proceed Anesthesia type and monitoring: general GIVS and standard monitoring Results Review: All pre-operative results and documents have been reviewed as part of the pre-operative evaluation. Informed Consent: The patient's anesthetic plan and its attendant risks and benefits were discussed with the patient/family/POA. Questions were solicited and answers provided to the satisfaction of the patient/family/POA.
[2023-03-08 09:40] VITALS: BP 136/68; PULSE 74; RESP 18; TEMP 36.2; O2SAT 100; BMI 30.8
--- NOTE | 2023-03-08 09:41 | PM.HPGS ---
History of Present Illness History of Present Illness Consent: Risks, benefits, and alternatives have been discussed and questions answered. Patient agrees to proceed with procedure. Chief complaint: Noninfective gastroenteritis and colitis, unspecif Narrative: Cara Rivers is a 77 year old female Who for several months she has been bothered by very loose stools.? This seems have begun in June.? She was on a bus trip and had episodes of actually being incontinent of stool or seeping.? Her stools were quite loose for several days.? She came to the conclusion that was usually after she had had a salad the the evening before that she was most likely to have these very loose bowel movements. Review of Systems Review of Systems: All systems reviewed & are unremarkable except as noted in HPI and below PMFSH Past Medical History Medical History CAD (coronary artery disease) GERD (gastroesophageal reflux disease) History of enlarged tonsils Hyperlipidemia Hypertension PONV (postoperative nausea and vomiting) Seasonal allergies Surgical History Surgical History History of hysterectomy (~01/2020) History of lumpectomy History of tubal ligation (Unknown) Family History Family History Father Cerebrovascular accident Patient's father is Sibling Family history of arthritis Family history of malignant neoplasm of esophagus Patient's brother is Mother Family history of malignant neoplasm of breast in first degree relative Patient's mother is Social History Social History Smoking status: Never smoker Second hand tobacco smoke exposure: No Alcohol intake: current Substance use: unknown Substance use type: does not use Lack of Transportation: No Lack of Food: Never True Current Housing: I Have Housing Concerned About Future Housing: No Difficulty Paying Gas/Electric Bills: No Difficulty Paying for Meds: No Currently Unemployed: Decline to Answer Education: Decline to Answer Difficulty w/ Childcare or Family Care: Decline to Answer Living arrangements: other Additional living arrangements comments: with sp Gender identity (if verbalized by the patient): Female Meds Home Medications and Allergies Home Medications Medication Instructions Recorded Confirmed Type omeprazole 40 mg capsule,delayed 40 mg PO DAILY #90 caps 08/13/22 03/08/23 Rx release azelastine-fluticasone 137 mcg-50 1 spray intranasal DAILY 01/08/23 03/08/23 History mcg/spray nasal spray levocetirizine 5 mg tablet (Xyzal) 5 mg PO .PRN 01/08/23 03/08/23 History terbinafine HCl 250 mg tablet 250 mg PO DAILY 01/08/23 03/08/23 History losartan 25 mg tablet 25 mg PO BID #180 tabs 02/20/23 03/08/23 Rx nirmatrelvir 300 mg (150 mg See Rx Instructions PO .COMPLEX 02/25/23 03/08/23 Rx x2)-ritonavir 100 mg tablet,dose #30 ea pack (Paxlovid) Allergies Allergy/AdvReac Type Severity Reaction Status Date / Time Sulfa (Sulfonamide Allergy Severe Swelling Verified 03/08/23 09:39 Antibiotics) nabumetone Allergy Intermediate raises BP Verified 03/08/23 09:39 Estrogens Allergy Mild rash Verified 03/08/23 09:39 ibuprofen [From Motrin] AdvReac vomiting Verified 03/08/23 09:39 Exam Const: General: alert Orientation/consciousness: patient oriented x3 Resp: Auscultation: clear to auscultation bilaterally Cardio: Rhythm: regular rhythm GI: GI Palp: Yes Soft to palpation and No Tenderness to palpation present (GI) Neuro: General: patient oriented x3 Assessment and Plan Assessment and plan (1) Chronic diarrhea: Code(s): K52.9 - Noninfective gastroenteritis and colitis, unspecified Status: Acute Assessment and Plan:
[2023-03-08] MEDS: LACTATED RINGERS 1,000 ML 150 ML IV CONT (09:57)
[2023-03-08 10:40] VITALS: BP 121/65; PULSE 74; RESP 14; O2SAT 96
[2023-03-08 10:50] VITALS: BP 143/78; PULSE 77; RESP 18; O2SAT 100
[2023-03-08 10:59] VITALS: BP 140/69; PULSE 68; RESP 13; O2SAT 100
== END 2023-03-08 11:13 | disposition home or self-care (01) ==
PROVIDERS: PCP Physician Assistant; Visit Provider Internal Medicine Gastroenterology
PROC: 0DJD8ZZ Inspection of Lower Intestinal Tract, Via Natural or Artificial Opening Endoscopic (ICD-10-PCS; CPT 45378; principal; 2023-03-08 10:30)
DX: R19.7 Diarrhea, unspecified (principal); I25.10 Atherosclerotic heart disease of native coronary artery without angina pectoris; I10 Essential (primary) hypertension; E78.5 Hyperlipidemia, unspecified; K21.9 Gastro-esophageal reflux disease without esophagitis; E66.9 Obesity, unspecified; Z68.30 Body mass index [BMI] 30.0-30.9, adult
CPT/HCPCS: 45380; 88305; J2704; J7120

== ENCOUNTER 2023-06-20 13:38 | Outpatient (CLI) | payer MEDICARE, SELFPAY ==
--- NOTE | ~2023-06-20 | DEXA_ITS ---
Bone Density Report Name: TORIE DUENAS Age: 78 Sex: Female Ethnicity: White Date of : 1945 Indication: postmenopausal; screening for osteoporosis; history of glucocorticoids; hysterectomy; Referring Provider: ANNITA LESLIE Study: Bone densitometry was performed. Exam Date: June 20, 2023 Accession number: [id number] Bone Density: Region BMD T-score Z-score Classification AP Spine(L1-L4) 0.931 -1.1 1.5 Osteopenia Femoral Neck (Left) 0.681 -1.5 0.7 Osteopenia Total Hip (Left) 0.873 -0.6 1.3 Normal Femoral Neck (Right) 0.593 -2.3 -0.1 Osteopenia Total Hip (Right) 0.800 -1.2 0.7 Osteopenia Total Hip Mean 0.837 -0.9 1.0 Normal World Health Organization criteria for BMD impression classify patients as: Normal (T-score at or above -1.0), Osteopenia (T-score between -1.0 and -2.5), or Osteoporosis (T-score at or below -2.5). 10-year Fracture Risk(1): Major Osteoporotic Fracture 22% Hip Fracture 7.4% Reported Risk Factors: [place] (), Neck BMD=0.593, BMI=33.2, glucocorticoids (1) FRAX(R) Version 3.08. Fracture probability calculated for an untreated patient. Fracture probability may be lower if the patient has received treatment. Previous Exams: Region Exam Age BMD T-score BMD Change BMD Change Date g/cm2 vs Baseline vs Previous AP Spine (L1-L4) 06/20/2023 78 0.931 -1.1 -0.042 (-4.3%) -0.041 (-4.3%) 09/10/2018 73 0.973 -0.7 0.000 (0.0%)# -0.007 (-0.8%) 08/19/2015 70 0.980 -0.6 0.007 (0.7%)# 0.007 (0.7%)# 06/22/2013 68 0.973 -0.7 Total Hip(Left) 06/20/2023 78 0.873 -0.6 -0.010 (-1.1%) -0.009 (-1.0%) 09/10/2018 73 0.882 -0.5 -0.001 (-0.1%) -0.005 (-0.6%) 08/19/2015 70 0.888 -0.4 0.004 (0.5%)# 0.004 (0.5%)# 06/22/2013 68 0.883 -0.5 Total Hip(Right) 06/20/2023 78 0.800 -1.2 -0.031 (-3.7%) -0.038 (-4.6%) 09/10/2018 73 0.839 -0.8 0.007 (0.9%)# 0.000 (0.1%) 08/19/2015 70 0.838 -0.9 0.007 (0.8%)# 0.007 (0.8%)# 06/22/2013 68 0.831 -0.9 *Denotes significance at 95% confidence level, LSC for AP Spine = 0.022 g/cm2, LSC for Total Hip = 0.027 g/cm2 # Denotes dissimilar scan types or analysis methods Clinical Information Provided by Patient: Has taken Glucocorticoids Has used the following medications: MULTI VIT Has the following medical conditions: Hysterectomy Patient maximum height was 65 Drinks caffeinated beverages Onset of menses at age 13 Number of children 2
--- NOTE | ~2023-06-20 | MM_ITS ---
EXAMINATION: MM screening lilli BI w marlyn HISTORY: Screening TECHNIQUE: Craniocaudal and mediolateral oblique 3-D tomosynthesis images were obtained and synthetic 2-D images were generated. CAD analysis was submitted and interpreted. COMPARISON: Comparison to multiple prior studies sequentially, with oldest reviewed study dated 10/29. BREAST PARENCHYMAL COMPOSITION: There are scattered areas of fibroglandular density. FINDINGS: There is no evidence of suspicious mass, calcification, or architectural distortion to sugg est malignancy in either breast. There has been no suspicious interval change. IMPRESSION: 1. No mammographic evidence of malignancy. 2. Recommend routine screening mammography in one year. BI-RADS Category 1: Negative Reviewed, dictated and finalized at location A.
== END 2023-06-20 13:39 | disposition home or self-care (01) ==
PROVIDERS: PCP Physician Assistant; Visit Provider Physician Assistant
DX: Z12.31 Encounter for screening mammogram for malignant neoplasm of breast (principal); M85.88 Other specified disorders of bone density and structure, other site; M85.852 Other specified disorders of bone density and structure, left thigh; M85.851 Other specified disorders of bone density and structure, right thigh
CPT/HCPCS: 77063; 77067; 77080

== ENCOUNTER 2023-07-30 11:42 | Emergency (ER) | payer MEDICARE, SELFPAY ==
--- NOTE | ~2023-07-30 | XR_ITS ---
EXAMINATION: XR wrist LT min 3V DATE: 07/30/2023 12:22 INDICATION: Left wrist pain, swelling and limited range of motion post fall TECHNIQUE: Posteroanterior, ulnar deviation, oblique, and lateral views of the left wrist were obtain ed. COMPARISON: none FINDINGS: Minimally displaced transverse fracture across the left scaphoid waist. Alignment remains near-anatom ic. No other fractures identified. 2 mm ulnar minus variance. Polyarticular osteoarthritis, severe at the first carpometacarpal and third distal interphalangeal joints, moderate severity at the first in terphalangeal and second distal interphalangeal joint and mild at the midcarpal, multiple metacarpoph alangeal and remaining interphalangeal joints. IMPRESSION: 1. Minimally displaced scaphoid waist fracture which remains in near-anatomic alignment. 2. 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 Reviewed, dictated and finalized at location B. IMPRESSION: 1. Minimally displaced scaphoid waist fracture which remains in near-anatomic a lignment. 2. 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
--- NOTE | ~2023-07-30 | CT_ITS ---
EXAMINATION: CT brain wo con DATE: 07/30/2023 12:16 INDICATION: Head injury. TECHNIQUE: Computed tomography (CT) of the head was performed without intravenous contrast. The mA wa s adjusted according to patient size. Iterative reconstruction technique was employed. The dose-lengt h product was 681.00 mGy-cm. COMPARISON: Head CT 01/12/2022 FINDINGS: There is no intracranial hemorrhage, acute infarction, or abnormal intracranial mass lesion . The ventricles are normal in size. The orbits are normal. There are likely changes of ocular lens r eplacement surgeries. The paranasal sinuses are clear. 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 Th e mastoid air cells are normal. IMPRESSION: 1. Normal brain. Reviewed, dictated and finalized at location A. IMPRESSION: 1. Normal brain.
--- NOTE | ~2023-07-30 | CT_ITS ---
EXAMINATION: CT cervical spine wo con DATE: 07/30/2023 12:17 INDICATION: Head injury. TECHNIQUE: Computed tomography (CT) of the cervical spine was performed without intravenous contrast. Automated exposure control and iterative reconstruction technique were employed. The dose-length pro duct was 482.52 mGy-cm. COMPARISON: None FINDINGS: There is 2 mm anterolisthesis of C5 on C6. There is interbody fusion at C3-C4. There is sev erely decreased disc height at C6-C7 with endplate remodeling. The following disc levels are specific ally discussed: C2-C3: There is no uncovertebral joint osteoarthritis. There is moderate right and severe left facet joint osteoarthritis. There is mild left neural foraminal stenosis. There is no central canal stenosi s. C3-C4: There is no uncovertebral joint hypertrophy. There is ankylosis of the facet joints with mild hypertrophy. There is mild left neural foraminal stenosis. There is no central canal stenosis. C4-C5: There is no uncovertebral joint osteoarthritis. There is mild right facet joint osteoarthritis . There is ankylosis of left facet joint with moderate hypertrophy. There is mild left neural foramin al stenosis. There is no central canal stenosis. C5-C6: There is mild bilateral uncovertebral joint osteoarthritis. There is severe bilateral facet david int osteoarthritis. There is no neural foraminal stenosis. There is mild central canal stenosis. C6-C7: There is severe bilateral uncovertebral joint osteoarthritis. There is severe bilateral facet joint osteoarthritis. There is mild bilateral neural foraminal stenosis. There is no central canal st enosis. C7-T1: There is no uncovertebral joint osteoarthritis. There is severe bilateral facet joint osteoart hritis. There is no neural foraminal stenosis. There is no central canal stenosis. IMPRESSION: 1. No fracture. 2. Severe cervical spondylosis. Reviewed, dictated and finalized at location A.
[2023-07-30 11:43] VITALS: BP 152/79; PULSE 83; RESP 16; TEMP 36.2; O2SAT 100
--- NOTE | 2023-07-30 12:04 | ED.UPPEXIN ---
HPI - Extremity Injury (Upper) General Chief Complaint: Extremity Injury, Upper Stated Complaint: pickleball accident Time Seen by Provider: 07/30/23 11:49 Source: patient Mode of arrival: ambulatory Limitations: no limitations History of Present Illness HPI narrative: Patient is a 78-year-old female who presents to the ED with report of left wrist pain. Patient reports she was playing pickle ball today when she slipped and fell, first landing on her buttocks, and attempting to catch herself with her left hand/wrist. She did hit her head, denied LOC. Complains of pain to left distal wrist/dorsal hand. Denies any other areas of pain at this time. Denies headache, dizziness, lightheadedness. Denies numbness. She is not any blood thinners. Related Data Home Medications Medication Instructions Recorded Confirmed levocetirizine 5 mg tablet (Xyzal) 5 mg PO .PRN 01/08/23 07/18/23 Allergies Allergy/AdvReac Type Severity Reaction Status Date / Time Sulfa (Sulfonamide Allergy Severe Swelling Verified 07/30/23 11:51 Antibiotics) nabumetone Allergy Intermediate raises BP Verified 07/30/23 11:51 Estrogens Allergy Mild rash Verified 07/30/23 11:51 ibuprofen [From Motrin] AdvReac vomiting Verified 07/30/23 11:51 Review of Systems Review of Systems: CONSTITUTIONAL: Denies fever, chills, or sweats. CARDIOVASCULAR: Denies chest pain. RESPIRATORY: Denies dyspnea. GASTROINTESTINAL: Denies abdominal pain, nausea, vomiting. MUSCULOSKELETAL: See HPI. NEUROLOGIC: See HPI. All systems reviewed & are unremarkable except as noted in HPI and below PMFSH Past Medical History Medical History CAD (coronary artery disease) GERD (gastroesophageal reflux disease) History of enlarged tonsils Hyperlipidemia Hypertension PONV (postoperative nausea and vomiting) Seasonal allergies Surgical History Surgical History History of hysterectomy (~01/2020) History of lumpectomy History of tubal ligation (Unknown) Family History Family History Father Cerebrovascular accident Patient's father is Sibling Family history of arthritis Family history of malignant neoplasm of esophagus Patient's brother is Mother Family history of malignant neoplasm of breast in first degree relative Patient's mother is Social History Social History Smoking status: Never smoker Second hand tobacco smoke exposure: No Alcohol intake: current Substance use: unknown Substance use type: does not use Lack of Transportation: No Lack of Food: Never True Current Housing: I Have Housing Concerned About Future Housing: No Difficulty Paying Gas/Electric Bills: No Difficulty Paying for Meds: No Currently Unemployed: Decline to Answer Education: Decline to Answer Difficulty w/ Childcare or Family Care: Decline to Answer Living arrangements: other Additional living arrangements comments: with sp Gender identity (if verbalized by the patient): Female Exam Narrative: GENERAL: Well appearing, obese with BMI 32.2, non-toxic, in no acute distress. HEAD: Normocephalic, atraumatic. No contusions. NECK: No significant tenderness throughout midline cervical spine. Neck is supple, full range of motion. RESPIRATORY: Airway patent, respirations nonlabored. Clear to auscultation bilaterally, no rales, rhonchi, wheezing. CARDIOVASCULAR: Regular rate and rhythm without murmurs, rubs, or gallops. Radial pulses 2+ MUSCULOSKELETAL: Moves all extremities. No gross deformities. TTP over L distal radius extending into dorsal hand with mild swelling noted. No significant tenderness over distal ulna. No snuffbox tenderness. Sensation intact throughout
[2023-07-30] MEDS: traMADol HCL (*CRX) 50 MG TABLET PO (12:07)
== END 2023-07-30 13:11 | disposition home or self-care (01) ==
PROVIDERS: Emergency Provider Physician Assistant; PCP Physician Assistant
DX: S62.002A Unspecified fracture of navicular [scaphoid] bone of left wrist, initial encounter for closed fracture (principal); W01.0XXA Fall on same level from slipping, tripping and stumbling without subsequent striking against object, initial encounter; Y93.73 Activity, racquet and hand sports; I25.10 Atherosclerotic heart disease of native coronary artery without angina pectoris; K21.9 Gastro-esophageal reflux disease without esophagitis; E78.5 Hyperlipidemia, unspecified; I10 Essential (primary) hypertension
CPT/HCPCS: 29125; 70450; 72125; 73110; 99284; A9270

== ENCOUNTER 2023-12-10 09:18 | Outpatient (CLI) | payer MEDICARE, SELFPAY ==
--- NOTE | ~2023-12-10 | US_ITS ---
EXAMINATION: US arterial ankle brachial ind DATE: 12/10/2023 09:53 INDICATION: Peripheral arterial disease. Abnormal findings on outside Doppler. TECHNIQUE: Segmental pressures and plethysmographic and Doppler waveforms of the brachial and lower e xtremity arteries were obtained. COMPARISON: None. FINDINGS: Right and left brachial artery pressures of 139 mm Hg and 146 mm Hg, respectively, are concordant (no rmal difference <= 30 mmHg). The right ankle-brachial index (CODI) is 1.16 (normal >= 0.9-1.0). The right great toe-brachial index (TBI) is 0.90 (normal >= 0.65). Arterial Doppler waveforms are biphasic at the ankle. The left CODI is 1.16. The left TBI is 0.85. Arterial Doppler waveforms are biphasic at the ankle. IMPRESSION: 1. No significant arterial occlusive disease. Reviewed, dictated and finalized at location A.
== END 2023-12-10 09:19 | disposition home or self-care (01) ==
LOC: ANHIMG 09:19
PROVIDERS: PCP Internal Medicine; Visit Provider Internal Medicine
DX: I73.9 Peripheral vascular disease, unspecified (principal)
CPT/HCPCS: 93922

== ENCOUNTER 2024-02-17 10:15 | Outpatient (RCR) | payer MEDICARE, SELFPAY ==
--- NOTE | 2024-01-20 10:51 | OTOPEVAL1 ---
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 She is s/p immobilization. She continues to experience residual stiffness, pain, and weakness that restricts left hand use for ADLs. She reports specifically difficulties with a cylindrical grasp - holding a coffee cup and holding a pool noodle during aquatic exercises. She also notes being able to lift objects with any sort of weight continues to be restricted, like lifting a pot with both hands. Reported Pain Level Pain Score 0: Self Report Assessment OT Clinical Summary Patient presents with a decline in left hand use following a scaphoid fracture ~6 months ago. She presents with residual soft tissue shortening, tightness, and weakness that is restricting return on a functional bilingual branch manager and functional thumb abduction. Instructed in use of heat, stretching, and ROM HEP. Continued skilled OT indicated for HEP progression, continued use of thermal modalities, manual therapy, and progressive resistive strengthening exercises to facilitate optimal functional ROM and strength of her left hand/wrist. Plan of Care Interventions Therapeutic Exercise,Manual Therapy,Therapeutic Activities,Hot Pack/Cold Pack,Paraffin OT Services Indicated Yes Treatment Frequency and 1-2x/week for 6 visits Duration These treatments will address the objective and functional deficits as defined above. The patient will be advanced safely and appropriately in order for the patient to progress towards his/her prior level of function. Additional exercises will be introduced and as well as a comprehensive home exercise program upon discharge, if needed, ?to ensure carryover of functional gains achieved in the clinic. This treatment plan has been reviewed and agreement upon by the patient.
--- NOTE | 2024-01-20 10:52 | OPREHPOC ---
Outpatient Therapy Plan of Care This is a Multidisciplinary Plan of Care that may contain components documented by all disciplines (PT, OT, and ST.) OT Problem 1 OT Problem #1 Knowledge Deficit OT Goal 1 Goal / Goal Update 1. Patient to be independent with instructed materials. Target Visit 6 OT Problem 2 OT Problem #2 Impaired Range of Motion OT Goal 1 Goal / Goal Update To improve functional use of the left hand for ADLs, patient to demonstrate improved ROM of the left wrist: 1. flexion to 60 2. extension to 55 Target Visit 6 OT Goal 2 Goal / Goal Update To improve functional use of the left hand for ADLs, patient to demonstrate improved ROM of the fingers/thumb: 1. be able to make a hook fist with <1 cm gap between finger tips and DPC 2. thumb palmar abduction to 50 degrees 3. thumb radial abduction to 45 degrees Target Visit 6 OT Problem 3 OT Problem #3 Impaired Strength OT Goal 1 Goal / Goal Update 1. Patient to progress to left hand road advisor/pinch strengthening to red putty x5 minutes without pain . 2. Patient to progress to left thumb palmar and radial abduction strengthening with rubber band(s) x20 reps with good form. Target Visit 6
--- NOTE | 2024-02-06 10:50 | OTOPPROG ---
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 She reports her flexibility has improved and she is now able to abduct her thumb enough to hold a cup of coffee and hold a pool noodle during her aquatic exercises. She feels like she has a better sample prep technician on her pots and pans, but she still doesn't feel 100% there strength-baker. ROM: Wrist flexion improved from 55 to 60 deg. Wrist extension improved from [address] improved from 20 to 25 deg. Wrist UD improved from 25 to 30 deg. Thumb palmar abduction improved from 40 to 50 deg. Thumb radial abduction improved from 35 to 40 deg. Strength: (L) sample prep technician 28 lbs. - Norm: 45 lbs. Assessment OT Clinical Summary Patient presents with a decline in left hand use following a scaphoid fracture ~6 months ago. She has made excellent progress with therapy - wrist ROM has returned to normal limits and her HEP was progressed to strengthening. Thumb ROM, specifically abduction, as improved and allowed for an improved sample prep technician around coffee cups. She continues to have deficits with flexibility and residual weakness. Continued skilled OT indicated to maximize functional use of her left hand. Plan of Care Interventions Therapeutic Exercise,Manual Therapy,Therapeutic Activities,Hot Pack/Cold Pack,Paraffin OT Services Indicated Yes Treatment Frequency and 1x/week for 4 visits Duration These treatments will address the objective and functional deficits as defined above. The patient will be advanced safely and appropriately in order for the patient to progress towards his/her prior level of function. Additional exercises will be introduced and as well as a comprehensive home exercise program upon discharge, if needed, ?to ensure carryover of functional gains achieved in the clinic. This treatment plan has been reviewed and agreement upon by the patient.
--- NOTE | 2024-02-06 10:50 | OPREHPOC ---
Outpatient Therapy Plan of Care This is a Multidisciplinary Plan of Care that may contain components documented by all disciplines (PT, OT, and ST.) OT Problem 1 OT Problem #1 Knowledge Deficit OT Goal 1 Goal / Goal Update 1. Patient to be independent with instructed materials. ---OT POC UPDATE 02/06/24--- 1. Met, continue as HEP is progressed Target Visit 8 Progress Met OT Problem 2 OT Problem #2 Impaired Range of Motion OT Goal 1 Goal / Goal Update To improve functional use of the left hand for ADLs, patient to demonstrate improved ROM of the left wrist: 1. flexion to 60 2. extension to 55 ---OT POC UPDATE 02/06/24--- Wrist ROM goals met Target Visit 6 Progress Met OT Goal 2 Goal / Goal Update To improve functional use of the left hand for ADLs, patient to demonstrate improved ROM of the fingers/thumb: 1. be able to make a hook fist with <1 cm gap between finger tips and DPC 2. thumb palmar abduction to 50 degrees 3. thumb radial abduction to 45 degrees ---OT POC UPDATE 02/06/24--- 1. Not met 2. Progressing 3. Progressing Target Visit 6 Progress Partially Met OT Problem 3 OT Problem #3 Impaired Strength OT Goal 1 Goal / Goal Update 1. Patient to progress to left hand counter sales person/pinch strengthening to red putty x5 minutes without pain . 2. Patient to progress to left thumb palmar and radial abduction strengthening with rubber band(s) x20 reps with good form. ---OT POC UPDATE 02/06/24--- 1. Met 2. Met Target Visit 8 Progress Met
--- NOTE | 2024-03-13 13:58 | OTOPDC ---
Assessment and note entered by Alexis Arguello, OTR/L, CHT OT D/C Notification 03/13/24 OT Clinical Summary Patient attended 5 OT sessions for left hand/wrist stiffness following left scaphoid fx. At our last session she felt as though she was doing well and was ready to be discharged from therapy. Please refer to progress update, dated 02/06/24, for most recent progress summary. Thank you for this referral.
== END 2024-03-17 11:59 | disposition home or self-care (01) ==
LOC: ANHOT 10:15
PROVIDERS: PCP Internal Medicine; Visit Provider Orthopaedic Surgery
DX: S62.009A Unspecified fracture of navicular [scaphoid] bone of unspecified wrist, initial encounter for closed fracture (principal); M18.12 Unilateral primary osteoarthritis of first carpometacarpal joint, left hand
CPT/HCPCS: 97018; 97110; 97140; 97165; 97530

== ENCOUNTER 2024-04-09 14:52 | Outpatient (CLI) | payer MEDICARE, SELFPAY ==
--- NOTE | ~2024-04-09 | US_ITS ---
EXAMINATION: US carotid duplex BI DATE: 04/09/2024 15:51 INDICATION: Dizziness. TECHNIQUE: Grayscale, color Doppler, and pulsed Doppler images of the cervical carotid arteries were obtained. The degree of vessel stenosis is placed in one of the following categories: normal, <50%, 5 0-69%, >=70% but less than near-occlusion, near-occlusion, or total occlusion. Note that percent sten osis relative to normal distal artery lumen diameter is indirectly measured from velocity measurement s as described by Colton, et al. Radiology 2003; 229:340-346. COMPARISON: None. FINDINGS: RIGHT: The right common carotid artery (CCA) peak systolic velocity (PSV) is 77 cm/s. The right internal car otid artery (ICA) PSV is 80 cm/s. The right ICA end-diastolic velocity (EDV) is 11 cm/s. The right IC A/CCA PSV ratio is 1.0. Grayscale and color Doppler images yield an estimate of <50% diameter reducti on from plaque in the ICA. There is antegrade flow in the right vertebral artery. LEFT: The left CCA PSV is 70 cm/s. The left ICA PSV is 79 cm/s. The left ICA EDV is 22 cm/s. The left ICA/C CA PSV ratio is 1.1. Grayscale and color Doppler images yield an estimate of <50% diameter reduction from plaque in the ICA. There is antegrade flow in the left vertebral artery. IMPRESSION: 1. <50% stenosis in the right internal carotid artery. 2. <50% stenosis in the left internal carotid artery. Reviewed, dictated and finalized at location B. ISH INSPECTOR
== END 2024-04-09 14:53 | disposition home or self-care (01) ==
PROVIDERS: PCP Internal Medicine; Visit Provider Nurse Practitioner Adult Health
DX: I65.23 Occlusion and stenosis of bilateral carotid arteries (principal); E78.5 Hyperlipidemia, unspecified
CPT/HCPCS: 93880

== ENCOUNTER 2024-04-14 11:14 | Outpatient (RCR) | payer SELFPAY | END 2024-04-14 23:59 | disposition home or self-care (01) | LOC: ANHAUDIO 11:14 | PROVIDERS: PCP Internal Medicine; Visit Provider Internal Medicine | DX: Z46.1 Encounter for fitting and adjustment of hearing aid (principal) | CPT/HCPCS: 92593 ==

== ENCOUNTER 2024-04-28 07:49 | Outpatient (CLI) | payer MEDICARE, SELFPAY ==
--- OUTSIDE RECORDS SUMMARY | 2024-04-28 08:10 | XMS_ITS | Referral Summary ---
Author Organization [facility] Address [address] [place] [address] Care Team Providers Care Cap Coverer Name Role Phone Lloyd Grover Primary Care Provider Encounters Date Type Department Care Team Description 04/10/2024 Telephone [facility] Medical [facility] Cardiology [address] [place] [address] Dolly Chan NP 03/30/2024 8:00 AM DIRECTOR OF ORTHOPEDICS Office Visit [facility] Cardiology [address] [place] [address] Dolly Chan NP Hypertension, unspecified type (Primary Dx); Dizziness; Hyperlipidemia, unspecified hyperlipidemia type from Last 3 Months Allergies Active Allergy Reactions Criticality Noted Date Comments Estrogens Rash Medium 05/12/2007 Rash, sores on her breasts and muscle aches. Ibuprofen Nausea And Vomiting 06/28/2020 Nabumetone Other (See comments) Low 05/12/2007 HIGH BLOOD PRESSURE Causes elevated blood pressure. Sulfa (Sulfonamide Antibiotics) Hives,Rash,Swelling High 05/12/2007 Medications omeprazole (PriLOSEC) 40 mg capsule Take 1 capsule (40 mg total) by mouth nightly Active losartan (COZAAR) 50 mg tablet Take 1 tablet (50 mg total) by mouth 2 (two) times a day Active azelastine-flut icasone 137-50 mcg/spray spray,non-aeros ol Administer 1 spray into affected nostril(s) daily Active levocetirizine (XYZAL) 5 mg tablet Take 1 tablet (5 mg total) by mouth daily as needed for allergies Active multivit with minerals/lutein (MULTIVITAMIN 50 PLUS ORAL) Rx: Multivitamin Active hydrALAZINE (APRESOLINE) 25 mg tablet Take 1 tablet (25 mg total) by mouth 2 (two) times a day 09/02/19 24 Active carvediloL (COREG) 3.125 mg tabletIndicatio ns:Hypertension , unspecified type Take 1 tablet (3.125 mg total) by mouth 2 (two) times a day with meals 180 tablet 1 04/13/19 25 026 Active carvediloL (COREG) 3.125 mg tabletIndicatio ns:Hypertension , unspecified type Take 1 tablet (3.125 mg total) by mouth 2 (two) times a day with meals 60 tablet 1 03/30/19 25 025 Discontin ued(Reord er) Active Problems Problem Noted Date Diagnosed Date Hypertension 07/12/2023 Hyperlipidemia 07/12/2023 Allergic rhinitis due to pollen 06/09/2001 Immunizations Name Administration Dates Next Due Reglare Sars-Cov-2 Bivalent Vaccination (12+ YRS) 02/01/2022 Social History Tobacco Use Types Packs/Day Years Used Date Smoking Tobacco: Never Smokeless Tobacco: Never Tobacco Cessation:Counseling Given: Not Answered AUDIT-C Answer Date Recorded Q1: How often do you have a drink containing alc ohol? Monthly or less 07/12/2023 Q2: How many drinks containi ng alcohol do you have on a typical day when you are drinking? 1 or 2 07/12/2023 Q3: How often do you have si x or more drinks on one occasion? Never 07/12/2023 Comments Unknown Sex and Gender Information Value Date Recorded Sex Assigned at Not on file Legal Sex Female 8:35 AM DIRECTOR OF ORTHOPEDICS Gender Identity Not on file Sexual Orientation Not on file Last Filed Vital Signs Vital Sign Reading Time Taken Comments Blood Pressure 114/68 03/30/2024 7:58 AM DIRECTOR OF ORTHOPEDICS Pulse 94 03/30/2024 7:58 AM DIRECTOR OF ORTHOPEDICS Temperature - - Respiratory Rate - - Oxygen Saturation 99% 03/30/2024 7:58 AM DIRECTOR OF ORTHOPEDICS Inhaled Oxygen Concentration - - Weight 88.9 kg (196 lb) 03/30/2024 7:58 AM DIRECTOR OF ORTHOPEDICS Height 167.6 cm (5' 6 ) 03/30/2024 7:58 AM DIRECTOR OF ORTHOPEDICS Body Mass Index 31.64 03/30/2024 7:58 AM DIRECTOR OF ORTHOPEDICS Plan of Treatment Not on file Procedures Procedure Name Priority Date/Time Associated Diagnosis Comments US CAROTIDS DUPLEX BILATERAL Routine 03/30/2024 Dizziness Hyperlipidemia, unspecified hyperlipidemia type from Last 3 Months Results * US Carotids Duplex Bilateral (03/30/2024) Anatomical Region Laterality Modality Vascular Bilateral Ultrasound us Dolly Chan END STAPLER IMG US PROCEDURES Final R esult from Last 3 Months Insurance MEDICARE [employer]IONS Care Teams Cap Coverer Relationship Specialty Start Date End Date Lloyd Grover PA [address] [place] [address] PCP - General Physician Carpenter Repairer 07/09/23
--- OUTSIDE RECORDS SUMMARY | 2024-04-28 08:10 | XMS_ITS | Encounter Summary ---
Author Organization [facility] Care Team Providers Care Infusion Therapy Nurse Name Role Phone No, Physician Primary Care Provider [phone] Lloyd Grover Primary Care Provider Encounter Details Date Type Department Care Team (Latest Contact Info) Description 05/13/2018 Orders Only [facility] ProviderNatasha MD [address] [place] [id number] Social History Tobacco Use Types Packs/Day Years Used Date Smoking Tobacco: Never Assessed Comments Unknown Sex and Gender Information Value Date Recorded Sex Assigned at Not on file Legal Sex Female 8:35 AM EDI DEVELOPER Gender Identity Not on file Sexual Orientation Not on file documented as of this encounter Plan of Treatment Not on file documented as of this encounter Procedures Procedure Name Priority Date/Time Associated Diagnosis Comments PROCEDURE - RESULT 05/13/2018 12 :00 AM EDI DEVELOPER documented in this encounter Results * PROCEDURE - RESULT (05/13/2018 12:00 AM EDI DEVELOPER) Narrative 05/13/2018 12:00 AM EDI DEVELOPER Ordered by an unspecified provider. Historical Provider Final Res ult documented in this encounter Visit Diagnoses Not on filedocumented in this encounter Care Teams Infusion Therapy Nurse Relationship Specialty Start Date End Date No, Physician PCP - General 05/20/23 07/08/23 Lloyd Grover PA [address] [place] [address] PCP - General Physician Data Compiler 07/09/23 documented as of this encounter
--- OUTSIDE RECORDS SUMMARY | 2024-04-28 08:10 | XMS_ITS | Referral Summary ---
Author Organization [facility] Address [address] [place] [address] Care Team Providers Care Laminating Machine Tender Name Role Phone Venkata Pugareyes Corrales DO Primary Care Provider [phone] Lloyd Grover PA-C Unavailable [phone] Priti Murray DO Unavailable Source Comments [facility],non-owned Affiliates and Associated Physician Practices is amultiple site organization consisting of ambulatory clinics and hospital sitesin [place], [place], [place] and [place]. This disclosure is being madepursuant to the Care Everywhere program and may not contain all information available regarding this patient. Last updated 17.[facility] Allergies Active Allergy Reactions Criticality Noted Date Comments Estrogens Rash Low 04/12/2008 Rash, sores on her breasts and muscle aches. Medroxyprogesterone Acetate Rash Medium 05/12/19 08 Ibuprofen Nausea and/or Vomiting 06/28/2020 Relafen 04/12/2008 Causes elevated blood pressure. Sulfa Drugs Swelling 04/12/2008 Medications * Be aware that medications may not be up to date on this document. Alwaysverify current medications with the patient. Medication Sig Dispensed Refills Start Date End Date Status MULTIVITAMIN PO Take by mouth once daily Active Ascorbic Acid (VITAMIN C PO) Take 500 mg by mouth once daily Active Bdakeog-Tbyj-Uss D-Vit K [id number] MG-UNT-MCG CHEW Take by mouth 3 times daily Active loratadine (CLARITIN) 10 MG tablet Take 10 mg by mouth once daily Active omeprazole (PRILOSEC) 40 MG capsule Take 1 (one) capsule by mouth every evening Active azelastine (Astelin) 0.1 % nasal spray SPRAY 2 SPRAYS INTO EACH NOSTRIL TWICE A DAY FOR 30 DAYS 02/12/2022 Active levocetirizine (Xyzal Allergy 24HR) 5 MG tablet Active losartan (Cozaar) 25 MG tablet Take 1 (one) tablet by mouth 2 times daily 08/14/2022 Active Active Problems Problem Noted Date Diagnosed Date Fibroids, submucosal 12/16/2019 PMB (postmenopausal bleeding) 05/21/2019 Intra-abdominal and pelvic s welling, mass and lump, unspecified site 05/21/2019 Intramural leiomyoma of uterus 10/01/2017 Screening for cervical cancer 03/12/2011 Overview (03/12/2011): Pap/pelvic 05/2010 NL done by [facility] MD Other screening mammogram 03/12/2011 Overview (03/12/2011): mammo done 02/2011 result pending Screening for colon cancer 03/12/2011 Overview (03/12/2011): colonoscopy 10/2003 neg, due in 3 yrs Constipation 03/12/2011 OA (osteoarthritis) 03/12/2011 Screening for osteoporosis 03/06/2011 Overview (03/12/2011): dexa 2009 - pt told NL HLD (hyperlipidemia) 06/13/2009 Fibrocystic breast 04/12/2008 Atrophic vaginitis 04/12/2008 Screening for condition 04/12/2008 Overview (12/16/2014): Adult Abstraction Problem List Screening Dexa Scan (Bone Density): Result: Not avail in chart Date: 05/2005 Colonoscopy: Result: Not avail in chart Date: 10/2003 Occult Blood (Stool Cards): Result: Negative Date: 04/03/2007 Pap Smear: Result: Negative Date: 04/03/2007, 03/26 Mammogram: Result: Negative Date: 02/20/2007, 02/18/09 Resolved Problems Problem Noted Date Diagnosed Date Resolved Date Numbness and tingling of left leg 04/15/2011 06/10/2011 Immunizations Name Administration Dates Next Due INFLUENZA A [id number] VACCINE 02/15/2009 INFLUENZA VACCINE 03/01/2011 Social History Tobacco Use Types Packs/Day Years Used Date Smoking Tobacco: Never Smokeless Tobacco: Never Tobacco Cessation:Counseling Given: Yes Alcohol Use Standard Drinks/Week Comments Yes 0 (1 standard drink = 0.6 oz pur e alcohol) 3-4 drinks yearly AUDIT-C Answer Date Recorded Q1: How often do you have a drink containing alc ohol? Monthly or less 01/21/2020 Average Number of Drinks Not on file 020 Q3: How often do you have si x or more drinks on one occasion? Never 01/21/2020 PHQ-2 Answer Date Recorded PHQ2 TOTAL SCORE 0 09/24/2022 Sex and Gender Information Value Date Recorded Sex Assigned at Not on file Gender Identity Not on file Sexual Orientation Not on file Last Filed Vital Signs Vital Sign Reading Time Taken Comments Blood Pressure 140/80 09/28/2022 9:41 AM CDT Pulse 72 06/28/2020 12:51 PM CDT Temperature 36.7 C (98.1 F) 01/21/2020 9:06 AM EXHIBIT BUILDER Respiratory Rate 18 01/21/2020 9:06 AM EXHIBIT BUILDER Oxygen Saturation 99% 02/23/2020 2:04 PM EXHIBIT BUILDER Inhaled Oxygen Concentration - - Weight 89.4 kg (197 lb) 09/28/2022 9:41 AM CDT Height 167.6 cm (5' 6 ) 09/28/2022 9:41 AM CDT Body Mass Index 31.8 09/28/2022 9:41 AM CDT Functional Status Functional Status Response Date of Assess ment Is person deaf or have serious hearing difficult y? No 01/21/2020 Is person blind or have serious difficulty seein g? No 01/21/2020 Does person have serious dif ficulty walking/climbing stairs? No 01/21/2020 Does person have difficulty dressing/bathing? No 01/21/2020 Does person have difficulty doing errands alone? No 01/21/2020 Cognitive Status Response Date of Assessm ent Does person have difficulty concentrating/remembering/making decisions? 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
--- OUTSIDE RECORDS SUMMARY | 2024-04-28 08:10 | XMS_ITS | Patient Health Summary ---
Author Organization [facility] Address [address] [place] [address] Care Team Providers Care Shoe Salesman Name Role Phone DomiVenkata bajwareyes Corrales DO Primary Care Provider [phone] Lloyd Grover PA-C Unavailable [phone]- [phone] Priti Murray DO Unavailable Note from [facility],non-owned Affiliates and Associated Physician Practices is amultiple site organization consisting of ambulatory clinics and hospital sitesin [place], [place], [place] and [place]. This disclosure is being madepursuant to the Care Everywhere program and may not contain all information available regarding this patient. Last updated 17.[facility] Allergies * Estrogens(Rash) -Low Criticality * Medroxyprogesterone Acetate(Rash) -Medium Criticality * Ibuprofen(Nausea and/or Vomiting) * Relafen(Causes elevated blood pressure.) * Sulfa Drugs(Swelling) * Estradiol,Inactive * Nabumetone(Other),Inactive Medications * Be aware that medications may not be up to date on this document. Alwaysverify current medications with the patient. * MULTIVITAMIN PO Take by mouth once daily * Ascorbic Acid (VITAMIN C PO) Take 500 mg by mouth once daily * Xilimun-Jdcb-Lxx D-Vit K [id number] MG-UNT-MCG CHEW Take by mouth 3 times daily * loratadine (CLARITIN) 10 MG tablet Take 10 mg by mouth once daily * omeprazole (PRILOSEC) 40 MG capsule Take 1 (one) capsule by mouth every evening * azelastine (Astelin) 0.1 % nasal spray(Started 02/12/2022) SPRAY 2 SPRAYS INTO EACH NOSTRIL TWICE A DAY FOR 30 DAYS * levocetirizine (Xyzal Allergy 24HR) 5 MG tablet * losartan (Cozaar) 25 MG tablet(Started 08/14/2022) Take 1 (one) tablet by mouth 2 times daily Active Problems Problem Noted Date Diagnosed Date Fibroids, submucosal 12/16/2019 PMB (postmenopausal bleeding) 05/21/2019 Intra-abdominal and pelvic s welling, mass and lump, unspecified site 05/21/2019 Intramural leiomyoma of uterus 10/01/2017 Screening for cervical cancer 03/12/2011 Other screening mammogram 03/12/2011 Screening for colon cancer 03/12/2011 Constipation 03/12/2011 OA (osteoarthritis) 03/12/2011 Screening for osteoporosis 03/06/2011 HLD (hyperlipidemia) 06/13/2009 Fibrocystic breast 04/12/2008 Atrophic vaginitis 04/12/2008 Screening for condition 04/12/2008 Resolved Problems Problem Noted Date Diagnosed Date Resolved Date Numbness and tingling of left leg 04/15/2011 06/10/2011 Immunizations * INFLUENZA A [id number] VACCINE(Given 02/15/2009) * INFLUENZA VACCINE(Given 03/01/2011) Social History Tobacco Use Types Packs/Day Years [...] 36.7 C (98.1 F) 01/21/2020 9:06 AM [facility]NER Respiratory Rate 18 01/21/2020 9:06 AM [facility] Oxygen Saturation 99% 02/23/2020 2:04 PM [facility] Inhaled Oxygen Concentration - - Weight 89.4 kg (197 lb) 09/28/2022 9:41 AM CDT Height 167.6 cm (5' 6 ) 09/28/2022 9:41 AM CDT Body Mass Index 31.8 09/28/2022 9:41 AM CDT Procedures * DERMATOPATHOLOGY(Performed 08/03/2020) * CULTURE URINE(Performed 06/28/2020) Performed for Dysuria * APHERESIS/TRANSFUSION ORDER(Performed 01/25/2020) * CBC W AUTO DIFFERENTIAL(Performed 01/20/2020) * BASIC METABOLIC PANEL (CALCIUM TOTAL)(Performed 01/20/2020) * PATHOLOGY TISSUE EXAM (STL)(Performed 01/19/2020) Performed for Postmenopausal bleeding * SD TOTAL ABDOM HYSTERECTOMY(Performed 01/19/2020) * NEURAXIAL BLOCK(Performed 01/19/2020) * BLOOD TYPE VERIFICATION(Performed 01/19/2020) * SARS-COV-2 (COVID-19) IN HOUSE(Performed 01/16/2020) Performed for Preop examination * SARS-COV2 (COVID-19) PANEL (STL)(Performed 01/16/2020) Performed for Preop examination * TYPE + SCREEN PANEL(Performed 01/08/2020) Performed for Preop examination * CBC W AUTO DIFFERENTIAL(Performed 01/08/2020) Performed for Preop examination * COMPREHENSIVE METABOLIC PANEL(Performed 01/08/2020) Performed for Preop examination * EKG 12-LEAD(Performed 01/08/2020) Performed for Preop examination * PATHOLOGY SPECIMEN(Performed 05/27/2019) Performed for PMB (postmenopausal bleeding) * US PELVIS W TRANSVAG NON OB(Performed 05/21/2019) Performed for Intra-abdominal and pelvic swelling, mass and lump, unspecified site , PMB (postmenopausal bleeding), Fibroid * CULTURE URINE(Performed 05/20/2019) Performed for Bacteremia , PMB (postmenopausal bleeding) * PAP IG LB(Performed 05/20/2019) Performed for PMB (postmenopausal bleeding) * US PELVIS W TRANSVAG NON OB(Performed 01/01/2017) Performed for Submucous leiomyoma of uterus * PATHOLOGY SPECIMEN(Performed 12/26/2016) Performed for PMB (postmenopausal bleeding) * MAMMOGRAPHY ORDER(Performed 10/18/2016) * US PELVIS W TRANSVAG NON OB(Performed 09/14/2016) Performed for Enlarged uterus, Generalized abdominal or pelvic swelling or mass or lump * PAP IG LB(Performed 09/12/2016) Performed for Papanicolaou smear for cervical cancer screening, Enlarged uterus, Generalized abdominal or pelvic swelling or mass or lump * MAMMO RIGHT DIAGNOSTIC(Performed 10/19/2013) Performed for Breast lesion * PAP IG RFLX HPV ASCU(Performed 08/18/2013) Performed for Routine gynecological examination, Screening for malignant neoplasm of the cervix * MAMMOGRAPHY ORDER(Performed 03/28/2013) * EMG WITH NERVE CONDUCTION STUDY(Performed 04/16/2011) * VITAMIN B12(Performed 04/12/2011) Performed for Numbness and tingling of left leg * TSH(Performed 04/12/2011) Performed for Numbness and tingling of left leg * HEMOGLOBIN A1C(Performed 04/12/2011) Performed for Numbness and tingling of left leg * XR THORACIC SPINE 2VW(Performed 09/04/2010) Performed for Neuralgia, DJD (degenerative joint disease) of cervical spine * XR CERVICAL SPINE 2 OR 3VW(Performed 09/04/2010) Performed for Neuralgia, DJD (degenerative joint disease) of cervical spine * PAP THINPREP+HPV MRNA E6/E7(Performed 06/08/2010) Performed for Routine gynecological examination, Special screening examination for human papillomavirus (HPV) * OCCULT BLOOD FECES 1-3 SCREEN POINT OF CARE (AMB)(Performed 06/08/2010) Performed for Routine gynecological examination * VITAMIN D 25-HYDROXY(Performed 03/16/2010) * XR LUMBAR SPINE 2 OR 3VW(Performed 02/27/2010) Performed for Sciatica * MAMMO BILAT SCREENING(Performed 02/27/2010) * CARDIAC EKG ORDER(Performed 02/16/2010) * LAB RESULTS ORDER(Performed 02/16/2010) * VITAMIN D 25-HYDROXY(Performed 06/08/2009) * LIPID PROFILE(Performed 06/08/2009) * OCCULT BLOOD FECES - POINT OF CARE (IP)(Performed 2009) Performed for Routine Gynecological Examination * CYTOLOGY CERVICAL/VAG DIAG THIN PREP(Performed 2009) Performed for Routine Gynecological Examination * DEXA BONE DENSITY 2 SITES(Performed 03/07/2009) * CYTOLOGY CERVICAL/VAG PAP SCREEN THIN PREP(Performed 05/21/2008) * LIPID PROFILE(Performed 05/17/2008) * GROSS + MICRO EXAM(Performed 01/12/2005) Results * DERMATOPATHOLOGY (08/03/2020 3:33 AM CDT) Case Report Dermatopathology Report Case: [id number] Authorizing Provider: Alonso Martinez MD Collected: 08/03/2020 03:33 AM Ordering Location: [facility] DermPath Lab Received: 08/04/2020 07:59 AM Pathologist: Domi Torres MD Specimen: Skin, right mid back 4:15 PM CDT DERMATOPATHOLOGY LABORATORY Final Diagnosis Specimen A. SKIN, right mid back: NEUROFIBROMA (D36.10) 4:15 PM T DERMATOPATHOLOGY LABORATORY Clinical History R/O neoplasia. 4:15 PM CDT DERMATOPATHOLOGY LABORATORY Gross Description Specimen A: Received is one formalin filled container labeled with the patient's name and designated right mid back. The specimen consists of a shave biopsy measuring 8g3m7wf. Jar 0. 4:15 PM CDT DERMATOPATHOLOGY LABORATORY Microscopic Description Specimen A. SKIN, right mid back: Sections show a proliferation of spindled and S-shaped cells within the dermis. The stromal collagen is delicate and pale. 4:15 PM CDT DERMATOPATHOLOGY LABORATORY Disclaimer An external and internal positive and negative controls are appropriate for the histochemical, immunohistochemical and immunofluorescence stain(s) in this case (if any), except where stated explicitly. The performance characteristics of the stain(s) cited in this report were developed and its performance characteristic determined by the Dermatopathology Laboratory at [facility], directed by Dr. Feli Tate. These tests need not be, and therefore are not, approved by the [place] Food and Drug Administration. The tests are used for clinical purposes. Billing Codes Specimen Charges Stain Charges 40606 1 4:15 PM CDT DERMATOPATHOLOGY LABORATORY Embedded Images 4:15 PM CDT DERMATOPATHOLOGY LABORATORY Pathology/Cytolo gy TISSUE SPECIMEN FROM SKIN / Unknown 08/03/2020 3:33 AM CDT 08/04/2020 7:59 AM CDT Alonso Martinez MD LAB - PATHOLOGY/CYTO LOGY ORDERABLES DERMATOPATHOLOGY LABORATORY [facility] Department of Dermatology [address], [address] [phone] * (ABNORMAL) CULTURE URINE (06/28/2020 1:57 PM CDT) Only the most recent of2 resultswithin the time period is included. Urine Culture Routine Final report(A) [facility] INSURANCE BILL Result 1 Klebsiella pneumoniae(A) [facility] INSURANCE BILL Comment: 50,000-100,000 colony forming units per mL Cefazolin <=4 ug/mL Cefazolin with an TALIA <=16 predicts susceptibility to the oral agents cefaclor, cefdinir, cefpodoxime, cefprozil, cefuroxime, cephalexin, and loracarbef when used for therapy of uncomplicated urinary tract infections due to E. coli, Klebsiella pneumoniae, and Proteus mirabilis. Result 2 (A) [facility] INSURANCE BILL Comment: Beta hemolytic Streptococcus, group B 10,000-25,000 colony forming units per mL Penicillin and ampicillin are drugs of choice for treatment of beta-hemolytic streptococcal infections. Susceptibility testing of penicillins and other beta-lactam agents approved by the FDA for treatment of beta-hemolytic streptococcal infections need not be performed routinely because nonsusceptible isolates are extremely rare in any beta-hemolytic streptococcus and have not been reported for Streptococcus pyogenes (group A). (CLSI) Antimicrobial Susceptibility [facility] INSURANCE BILL Comment: S = Susceptible; I = Intermediate; R = Resistant P = Positive; N = Negative MICS are expressed in micrograms per mL Antibiotic RSLT#1 RSLT#2 RSLT#3 RSLT#4 Amoxicillin/Clavulanic Acid S Ampicillin R Cefepime S Ceftriaxone S Cefuroxime S Ciprofloxacin S Ertapenem S Gentamicin S Imipenem S Levofloxacin S Meropenem S Nitrofurantoin I Piperacillin/Tazobactam S Tetracycline S Tobramycin S Trimethoprim/Sulfa S Urine MID-STREAM URINE SPECIMEN / Unknown 06/28/2020 1:57 PM CDT 06/28/2020 Narrative Resulting Agency Comment Lab [facility] performed at: [facility] [address] [facility] [phone] [place] LAB - MICROBIOLOG Y ORDERABLES [facility] B[facility] [address] [place] [address] * APHERESIS/TRANSFUSION ORDER (01/25/2020 11:52 PM [facility]) Narrative 01/25/2020 11:52 PM [facility] Ordered by an unspecified provider. Scanned Document NURSING - VITAL SIGN S AND ASSESSMENT * (ABNORMAL) CBC W AUTO DIFFERENTIAL (01/20/2020 4:12 AM [facility]) Only the most recent of2 resultswithin the time period is included. WBC 14.3(H) 4.4 - 10.7 x10E9/L 01/20/2020 5:55 AM [facility] WBC Corrected 01/20/2020 5:55 AM [facility] RBC 4.04 3.80 - 5.20 x10E12/L 01/20/2020 5:55 AM [facility] Hemoglobin 12.7 12.0 - 15.6 gm/dL 01/20/2020 5:55 AM [facility] Hematocrit 40.0 35.9 - 45.5 % 01/20/2020 5:55 AM [facility] MCV 99.0(H) 80.7 - 98.3 fl 01/20/2020 5:55 AM [facility] MCH 31.4 26.7 - 34.0 pg 01/20/2020 5:55 AM [facility] MCHC 31.8 30.8 - 35.9 gm/dL 01/20/2020 5:55 AM [facility] Platelet Count 289 153 - 416 x10E9/L 01/20/2020 5:55 AM [facility] RDW-CV 12.7 12.1 - 14.9 % 01/20/2020 5:55 AM [facility] MPV 11.7 9.4 - 12.9 fl 01/20/2020 5:55 AM [facility] Neutrophils % 86.9(H) 44.0 - 73.0 % 01/20/2020 5:55 AM [facility] Lymphocytes % 5.7(L) 20.0 - 43.0 % 01/20/2020 5:55 AM [facility] Monocytes % 6.6 5.0 - 13.0 % 01/20/2020 5:55 AM [facility] Eosinophils % 0.1 0.0 - 6.0 % 01/20/2020 5:55 AM [facility] Basophils % 0.1 0.0 - 2.0 % 01/20/2020 5:55 AM [facility] Immature Granulocytes 0.6 0 - 1 % 01/20/2020 5:55 AM [facility] Neutrophil Absolute 12.41(H) 2.01 - 7.14 x10E9/L 01/20/2020 5:55 AM [facility] Lymphocytes Absolute 0.81(L) 1.07 - 3.94 x10E9/L 01/20/2020 5:55 AM [facility] Monocytes Absolute 0.94 0.26 - 1.07 x10E9/L 01/20/2020 5:55 AM [facility] Eosinophils Absolute 0.01 0 - 0.47 x10E9/L 01/20/2020 5:55 AM [facility] Basophils Absolute 0.01 0 - 0.08 x10E9/L 01/20/2020 5:55 AM [facility] Immature Granulocytes Absolute 0.08(H) 0.00 - 0.06 x10E9/L 01/20/2020 5:55 AM [facility] nRBC Auto 0 /100 WBC 01/20/2020 5:55 AM [facility] Blood BLOOD SPECIMEN / Unknown Venipuncture / Unknown 01/20/2020 4:12 AM [facility] 01/20/2020 5:45 AM [facility] Priti Murray DO LAB - HEMATOLOGY ORD ERABLES [facility] [address] [place] [address] * (ABNORMAL) BASIC METABOLIC PANEL (CALCIUM TOTAL) (01/20/2020 4:11 AM [facility]) Glucose 119(H) 70 - 105 mg/dL 01/20/2020 6:33 AM [facility] Sodium 137 136 - 145 mmol/L 01/20/2020 6:33 AM [facility] Potassium 4.7 3.5 - 5.1 mmol/L 01/20/2020 6:33 AM [facility] Chloride 106 98 - 107 mmol/L 01/20/2020 6:33 AM [facility] CO2 20(L) 23 - 31 mmol/L 01/20/2020 6:33 AM [facility] Calcium 8.3(L) 8.4 - 10.4 mg/dL 01/20/2020 6:33 AM [facility] Anion Gap 11 8 - 18 mmol/L 01/20/2020 6:33 AM [facility] Comment:Attention clinician: Reference Range change. BUN 21(H) 9.8 - 20.1 mg/dL 01/20/2020 6:33 AM [facility] Creatinine 1.00 0.57 - 1.11 mg/dL 01/20/2020 6:33 AM [facility] eGFR by MDRD 54 mL/min/1.7 3m2 01/20/2020 6:33 AM [facility] eGFR by MDRD >60 mL/min/1.7 3m2 01/20/2020 6:33 AM [facility] Blood BLOOD SPECIMEN / Unknown Venipuncture / Unknown 01/20/2020 4:11 AM [facility] 01/20/2020 5:45 AM [facility] Priti Murray DO LAB - CHEMISTRY [place] LUCAS [facility] [address] [place] [address] * PATHOLOGY TISSUE EXAM (STL) (01/19/2020 11:54 AM [facility]) Case Report Surgical Pathology Report Case: [id number] Authorizing Provider: Priti Murray DO Collected: 01/19/2020 11:54 AM Ordering Location: [facility] INTRAOP Received: 01/19/2020 12:42 PM Pathologist: Jer Morejon MD Specimen: Uterus w/o Tubes, UTERUS, BILATERAL TUBES, OVARIES, AND CERVIX 01/21/2020 11:02 AM [facility] Final Diagnosis Uterus with cervix, bilateral ovaries and fallopian tubes, hysterectomy and salpingo-oophorectomy : -- Cervix with nabothian cysts -- Atrophic endometrium with a benign endometrial polyp -- Leiomyomata MC 01/21/2020 11:02 AM [facility] Clinical History Postmenopausal bleeding, pelvic fullness, fibroid uterus 01/21/2020 11:02 AM [facility] Gross Description Received in container A in formalin labeled Cara Rivers, uterus, bilateral tubes, ovaries and cervix , is a 125 gram, 9.7 x 5.5 x 4.5 cm uterus with attached previously ligated right fallopian tube with fimbria (2 x 0.5 cm), right ovary (1.5 x 1 x 0.4 cm), previously ligated left fallopian tube with fimbria (1.9 x 0.4 cm) and left ovary (1.5 x 0.6 cm). The cervix measures 2.5 x 1.5 cm. The ectocervical mucosa is smooth pink-bustos. The probe-patent round os measures 0.3 cm. The serosa is remarkable for two firm white-bustos partially calcified subserosal nodules measuring 0.5 cm and 1.6 cm. The remainder of the serosa is unremarkable. The endocervical mucosa is smooth pink-bustos. The endometrial cavity is distorted by a leiomyoma. The endometrial cavity measures approximately 3.8 cm in length and 3 cm from cornu to cornu. The endometrium is smooth pink-bustos and free of lesions. The myometrium measures 1.3 cm in thickness. It is remarkable for a single 5.5 cm firm white-bustos submucosal leiomyoma. The surface of the right ovary is smooth. Bisecting shows an unremarkable ovarian stroma. Sections of the right fallopian tube show a patent lumen with no gross lesions. The surface of the left ovary is smooth. Bisecting shows an unremarkable ovarian stroma. Sections of the left fallopian tube show a patent lumen with no gross lesions. Coal Washer sections are submitted as follows: A1 - Smaller and larger subserosal nodules A2 - Anterior cervix A3 - Posterior cervix A4 - Anterior endomyometrium A5 - Posterior endomyometrium A6-A8 - Submucosal leiomyoma A9 - Entire right ovary and auto service representative sections of right fallopian tube A10 - Entire left ovary and auto service representative sections of left fallopian tube. Cassette A1 is submitted for light decalcification. CH/eh 01/21/2020 11:02 AM [facility] Microscopic Description Sections of the cervix show nabothian cysts. No dysplasia is seen. Sections of the endomyometrium and uterine serosa show benign histology. The endometrium is atrophic with a benign endometrial polyp.. The myometrium shows benign leiomyomas, with focal calcifications/ossifi cation. The bilateral ovaries and fallopian tubes show no pathologic diagnoses. 01/21/2020 11:02 AM [facility] Disclaimer All histochemical and/or immunohistochemical results are interpreted with controls that demonstrate appropriate staining reactions before reporting results. Note on use of immunocytochemistry reagents: This test was developed and its performance characteristic determined by [facility], Department of Laboratory Medicine. It has not been cleared or approved by the U.S. Food and Drug Administration (FDA). The FDA has determined that such clearance or approval is not necessary. The test is used for clinical purpose. It should not be regarded as investigational or for research. This laboratory is certified to perform high complexity testing. The performance characteristics of the IHC/ONEAL assays have been validated on formalin-fixed paraffin embedded tissues only. The assays have not been validated on decalcified tissues. Results should be interpreted with caution. 01/21/2020 11:02 AM [facility] Embedded Images 01/21/2020 11:02 AM [facility] Pathology/Cytolo gy ENTIRE UTERUS / Unknown 01/19/2020 11:54 AM [facility] 01/19/2020 12:42 PM [facility] Priti Murray DO LAB - PATHOLOGY/CYTO LOGY ORDERABLES [facility] [address] [place] [address] * EPIDURAL BLOCK PERF (01/19/2020 9:32 AM [facility]) Narrative Valeria Galvan DO - 01/19/2020 9:32 AM [facility] Valeria Galvan DO 01/19/2020 9:34 AM Neuraxial Block Note Pre-Procedure: Procedure Name: Neuraxial Block Patient Location: Pre-op Indications: at surgeon's request and postop pain management Pre-Anesthetic Checklist: Patient identified, IV Checked, Risks and benefits discussed, Surgical consent verified, Monitors and equipment, Site examined, Pre-op evaluation done, Time-out performed, Informed consent obtained, Questions answered/anesthesia questions answered and Allergies reviewed Anticoagulation/ Anti-thrombosis status confirmed? Yes Monitors: BP and continuous pluse ox Patient Condition: sedated, meaningful contact maintained throughout procedure Patient Sedated? Yes Sedation Type: mild Sedation Agents: fentaNYL (PF) (SUBLIMAZE) injection, 100 mcg midazolam (VERSED) injection, 2 mg Procedure: Block Type: Epidural Prep: Betadine Sterile Field: mask, cap/hat, sterile established and sterile gloves Approach: midline Skin was localized? Yes Skin localized with: lidocaine (XYLOCAINE) 1 % injection, 1 mL Epidural Block: Is this procedure for postop pain? Yes Reason: anticipated abdominal pain Diagnosis: see diagnosis Needle Type: Tuohy Needle gauge: 18 G Needle length: 90 mm Placement Site: L3-L4 Number of Attempts: 1 Loss of Resistance: 6 air Catheter threaded to (cm): 20 Catheter length at skin (cm): 12 CSF Aspirated from catheter: No Blood Aspirated: No Test Dose: lidocaine 1.5% with 1-200,000 epinephrine 3 mL Test Dose Response: No Degree of difficulty: none Procedure Tolerance: tolerated well Motor Blockade: No Position post procedure: head of bed elevated 30 degrees Vital Signs: Vital signs moniitored and stable throughout. See nursing vitals flowsheet for details. Staff: Anesthesia Provider: Valeria Galvan DO - performed the procedure Valeria Galvan DO GENERAL ANESTHESIA O RDERABLES * BLOOD TYPE VERIFICATION (01/19/2020 8:59 AM [facility]) ABO Rh O POS 01/19/2020 9:3 1 AM [facility] B[facility] B[facility] Blood Bank BLOOD SPECIMEN / Unknown Venipuncture / Unknown 01/19/2020 8:59 AM [facility] 01/19/2020 9:02 AM [facility] Priti Murray DO LAB - BLOOD BANK ORD ERABLES [facility] BLOOD BANK [address] [place] [address], [facility] [phone] * SARS-COV-2 (COVID-19) IN HOUSE (01/16/2020 8:14 AM CDT) COVID-19 PCR Not detected Not detected 01/16/2020 6:[address] [facility] Microbiology SPECIMEN FROM NASOPHARYNGEAL STRUCTURE / Unknown Collection / Unknown 01/16/2020 8:14 AM CDT 01/16/2020 8:[address] [facility] - 01/16/2020 6:42 PM CDT This nucleic acid amplification assay performance was validated by [facility]. This test has been authorized by the Food and Drug administration (FDA)under an Emergency Use Authorization (EUA). This test has been validated in accordance with the FDA's guidance document Policy for Diagnostic Testing in Laboratories Certified to perform High Complexity Testing under CLIA prior to Emergency Use Authorization for Coronavirus Disease-2019 during the Public Health Emergency issued on May 16, 2019. FDA independent review of this validation is pending. This test is only authorized for the duration of time the declaration that circumstances exist justifying the authorization of emergency use of in vitro diagnostic tests for detection of SARS-CoV-2 virus and/or diagnosis of COVID-19 infection under section 564(b)(1) of the Act, 21 U.S.C 360bbb-3 (b)(1), unless the authorization is terminated or revoked sooner. Fact Sheets for this EUA assay are available upon request. Priti Murray DO LAB - MICROBIOLOGY O RDERABLES [facility] [address] [place] [address], [facility] [phone] * TYPE + SCREEN PANEL (01/08/2020 9:03 AM CDT) ABO Rh O POS 01/08/2020 10:04 AM CDT [facility]OD [facility] Comment:No history; collect retype. Antibody Screen NEG 0 10:04 AM CDT [facility] BLOOD B[facility] Blood Bank BLOOD SPECIMEN / Unknown Venipuncture / Unknown 01/08/2020 9:03 AM CDT 01/08/2020 9:09 AM CDT Valeria Galvan DO LAB - BLOOD BANK ORD ERABLES [facility] BLOOD BANK [address] [place] [id number] [phone] * COMPREHENSIVE METABOLIC PANEL (01/08/2020 9:03 AM CDT) Glucose 95 70 - 105 mg/dL 01/08/2020 9:28 AM CDT [facility] Sodium 140 136 - 145 mmol/L 01/08/2020 9:28 AM CDT [facility] Potassium 4.4 3.5 - 5.1 mmol/L 01/08/2020 9:28 AM CDT [facility] Chloride 105 98 - 107 mmol/L 01/08/2020 9:28 AM CDT [facility] CO2 25 23 - 31 mmol/L 01/08/2020 9:28 AM CDT [facility] Calcium 8.9 8.4 - 10.4 mg/dL 01/08/2020 9:28 AM CDT [facility] Anion Gap 10 8 - 16 mmol/L 01/08/2020 9:28 AM CDT [facility] BUN 16 9.8 - 20.1 mg/dL 01/08/2020 9:28 AM CDT [facility] Creatinine 0.78 0.57 - 1.11 mg/dL 01/08/2020 9:28 AM CDT [facility] Alkaline Phosphatase 83 39 - 139 U/L 01/08/2020 9:28 AM CDT [facility] ALT 31 0 - 61 U/L 01/08/2020 9:28 AM CDT [facility] AST 23 5 - 34 U/L 01/08/2020 9:28 AM CDT [facility] Protein Total 7.1 6.4 - 8.3 gm/dL 01/08/2020 9:28 AM CDT [facility] Albumin 4.1 3.2 - 4.6 gm/dL 01/08/2020 9:28 AM CDT [facility] Bilirubin Total 0.4 0.2 - 1.2 mg/dL 01/08/2020 9:28 AM CDT [facility] eGFR by MDRD >60 mL/min/1.7 3m2 01/08/2020 9:28 AM CDT [facility] eGFR by MDRD >60 mL/min/1.7 3m2 01/08/2020 9:28 AM CDT [facility] Blood BLOOD SPECIMEN / Unknown Venipuncture / Unknown 01/08/2020 9:03 AM CDT 01/08/2020 9:09 AM CDT Katt Escalona SALES REPRESENTATIVE ADVERTISING-ADMINISTRATIVE RESIDENT LAB - CHEM ISTRY ORDERABLES Performing Organization Address [facility] Co de Phone Number [facility] [address] [place] [address] * EKG 12-LEAD (01/08/2020 8:33 AM CDT) Ventricular Rate 66 BPM [facility] Atrial Rate 66 BPM [facility] P-R Interval 148 ms [facility] QRS Duration ms 78 ms [facility] Q-T Interval ms 406 ms [facility] QTC Calculation (Bezet) 425 ms [facility] Calculated P Marion 76 degrees [facility] Calculated R Marion 34 degrees [facility] Calculated T Marion 61 degrees [facility] Interpretation EKG Normal sinus rhythm Normal ECG No previous ECGs available Confirmed by LOY LICONA MD ([id number]) on 01/11/2020 10:25:07 AM [facility] 01/08/2020 8:33 AM CDT 01/11/2020 10:25 AM CDT Valeria Galvan DO ECG ORDERABLES [facility] * PATHOLOGY SPECIMEN (05/27/2019 4:27 PM CDT) Only the most recent of2 resultswithin the time period is included. Material [facility] ACCOUNT BILL Comment: Material submitted: . endometrium - ENDOMETRIAL BIOPSY F Diagnosis [facility] ACCOUNT BILL Comment: Diagnosis: ENDOMETRIAL BIOPSY: A FEW STRIPS OF ATROPHIC ENDOMETRIUM. NO ATYPIA. GXA 05/29/2019 1721 Local Signed [facility] ACCOUNT BILL Comment: Electronically signed: . Harris Sotelo MD, Pathologist Grossed [facility] ACCOUNT BILL Comment: Gross description: . 1 Container, formalin-filled, labeled with patient identification. ENDOMETRIAL BIOPSY: MULTIPLE FRAGMENT(S) OF MUCUS AND SOFT MATERIAL MEASURING 1.7 X 0.7 X 0.1 CM IN AGGREGATE. FILTERED AND SUBMITTED IN CASSETTE(S) A1. THE SPECIMEN MAY NOT SURVIVE PROCESSING. MCO/MCO 05/28/2019 0959 Local Pathologist Provided ICD10 [facility] ACCOUNT BILL Comment: Pathologist provided ICD-10: N92.5 CPT [facility] ACCOUNT BILL Comment: CPT . 255897 Pathology/Cytolo gy OPEN BIOPSY OF ENDOMETRIUM / Unknown 05/27/2019 4:27 PM CDT 05/28/2019 Narrative Resulting Agency Comment [facility]: [facility] [address] [place] [phone] Priti Murray DO LAB - PATHOLOGY/CYTO LOGY ORDERABLES [facility] ACCOUNT BILL [address] [place] [address] * US PELVIS WITH TRANSVAG NON OB (05/21/2019 8:17 AM CASING RUNNER) Only the most recent of3 resultswithin the time period is included. Anatomical Region Laterality Modality Pelvis Ultrasound 05/21/2019 8:35 AM [facility]ING [facility]NER Impressions 05/21/2019 8:46 AM [facility]ING [facility]NER Unremarkable pelvic ultrasound. Two discrete fibroids are seen. Edited by Kylah Winston on 05/21/2019 8:42 AM Reading Radiologist: Mya Ware MD on 05/21/2019 at 8:46 AM Narrative 05/21/2019 8:46 AM [facility]ING [facility]NER ULTRASOUND PELVIS TRANSABDOMINAL AND TRANSVAGINAL INDICATION: Pelvic swelling, pelvic mass. Grayscale ultrasound of the pelvis is performed transabdominally and transvaginally. The uterus is anteverted measuring 10.9 x 6.6 x 4.8 cm. At least two discrete myomas are seen, one anterior measuring 1.5 x 1.4 x 1.9 cm, a second posterior, calcified, measuring 1.5 x 0.9 x 2.0 cm. Endometrial stripe is thickened measuring 2.0 cm. Both ovaries are seen and appear unremarkable. The right ovary measures 1.6 x 1.0 x 0.9 cm. The left ovary measures 1.6 x 1.1 x 1.4 cm. There is no free fluid. Procedure Note Mya Ware MD - 05/21/2019 ULTRASOUND PELVIS TRANSABDOMINAL AND TRANSVAGINAL INDICATION: Pelvic swelling, pelvic mass. Grayscale ultrasound of the pelvis is performed transabdominally and transvaginally. The uterus is anteverted measuring 10.9 x 6.6 x 4.8 cm. At least two discrete myomas are seen, one anterior measuring 1.5 x 1.4 x 1.9 cm, a second posterior, calcified, measuring 1.5 x 0.9 x 2.0 cm. Endometrial stripe is thickened measuring 2.0 cm. Both ovaries are seen and appear unremarkable. The right ovary measures 1.6 x 1.0 x 0.9 cm. The left ovary measures 1.6 x 1.1 x 1.4 cm. There is no free fluid. IMPRESSION Unremarkable pelvic ultrasound. Two discrete fibroids are seen. Edited by Kylah Winston on 05/21/2019 8:42 AM Reading Radiologist: Mya Ware MD on 05/21/2019 at 8:46 AM Priti Murray DO US ORDERABLES * PAP IG LB (05/20/2019 4:09 PM CASING RUNNER) Only the most recent of2 resultswithin the time period is included. Diagnosis [facility] Comment: NEGATIVE FOR INTRAEPITHELIAL LESION OR MALIGNANCY. CELLULAR CHANGES ASSOCIATED WITH ATROPHY ARE PRESENT. Specimen Adequacy [facility] INSURANCE BILL Comment: Satisfactory for evaluation. Endocervical and/or squamous metaplastic cells (endocervical component) are present. Clinician Provided ICD10 [facility] Comment: N95.0 D21.9 R19.00 R78.81 Performed by [facility] Comment:Marcia Oliver Cytot echnologist (ASCP) Comment . [facility] INSURANCE BILL Note [facility] INSURANCE BILL Comment: The Pap smear is a screening test designed to aid in the detection of premalignant and malignant conditions of the uterine cervix. It is not a diagnostic procedure and should not be used as the sole means of detecting cervical cancer. Both false-positive and false-negative reports do occur. . [facility] CPT Code Automation [facility] INS[facility] Comment: This liquid based ThinPrep(R) pap test was screened with the use of an image guided system. Pathology/Cytolog y PART OF UTERINE CERVIX / Unknown 05/20/2019 4:09 PM CASING RUNNER 05/20/2019 Narrative [facility] INSURANCE BILL - 05/22/2019 1:08 PM CASING RUNNER Source.............Cervix;Endocervix No. of containers..01 ThinPrep Vial Resulting Agency Comment Lab Testing performed at: [address] [phone] Priti Murray DO LAB - PATHOLOGY/CYTO LOGY ORDERABLES [facility] INSURANCE BILL [address] [place] [address] * MAMMOGRAPHY ORDER (10/18/2016) Only the most recent of2 resultswithin the time period is included. Anatomical Region Laterality Modality Mammography Priti Murray DO MAMMO ORDERABLES * MAMMO DIAG DIRECT DIGITAL IMAGE UNIL RIGHT (10/19/2013 9:28 AM CDT) Anatomical Region Laterality Modality Right Mammography 10/19/2013 9:41 AM CDT Addenda This result is currently undergoing an addendum. Addendum by Claude Cote MD on 10/22/2013 12:29 PM CDT COMPARISON MAMMOGRAM ADDENDUM: The recent right breast diagnostic mammogram examination of 10/19/2013 at [facility] is now compared with previous examinations of 03/28/2013 and 03/06/2012 at [facility] [place] [facility]. Right breast parenchymal pattern is unchanged. No suspicious mass or clustered microcalcification identified. No significant new finding. ASSESSMENT: BI-RADS 2: Benign finding RECOMMENDATION: Followup screening mammogram on schedule. Edited by Patsy Doshi on 10/22/2013 10:09 AM Narrative 10/19/2013 2:19 PM CDT DIGITAL DIAGNOSTIC UNILATERAL RIGHT MAMMOGRAM PREVIOUS EXAM DATE: None currently available. INDICATION: Skin lesion right breast, positive family history. TECHNIQUE: Standard views right breast, MLO and CC with CAD correlation. TECHNOLOGIST: Cara Price, RT(R)(M). TISSUE DENSITY: Average. FINDINGS: There is a nodular fibroglandular pattern in the right breast. There are coarse benign-appearing calcifications. No suspicious mass identified. No significant skin thickening identified currently. Comparison with any available previous outside examination required. ASSESSMENT: BI-RADS 0 - INCOMPLETE: Needs additional imaging evaluation. RECOMMENDATION: The mammography facility is requesting previous films and an addended report will be issued when they become available. The above findings should be correlated with physical examination. A relatively non-specific study should not preclude additional evaluation if suspicious findings are present clinically. An [employer] Certified Facility Edited by Cara Aguirre on 10/19/2013 9:45 AM Jaden Mendez MD MAMMO ORDERABLES * PAP SMEAR IG RFLX HPV ASCU (PO REF LAB) (08/18/2013 10:59 AM CDT) Diagnosis [facility] INSURANCE BILL Comment:NEGATIVE FOR INTRAEP ITHELIAL LESION AND MALIGNANCY. Specimen Adequacy [facility] INSURANCE BILL Comment: Satisfactory for evaluation. Endocervical and/or squamous metaplastic cells (endocervical component) are present. Clinician Provided ICD9 [facility] INSURANCE BILL Comment: V72.31 ; Routine gynecological examination V76.2 ; Screening for malignant neoplasm of the cervix Performed by [facility] INSURANCE BILL Comment:Marcia Naidu, Cytot echnologist (ASCP) Comment . [facility] INSURANCE BILL Note [facility] INSURANCE BILL Comment: The Pap smear is a screening test designed to aid in the detection of premalignant and malignant conditions of the uterine cervix. It is not a diagnostic procedure and should not be used as the sole means of detecting cervical cancer. Both false-positive and false-negative reports do occur. . IGLBP CPT Code Automation [facility] INSURANCE BILL Comment: This liquid based ThinPrep(R) pap test was screened with the use of an image guided system. Note [facility] INSURANCE BILL Comment: The HPV DNA reflex criteria were not met with this specimen result therefore, no HPV testing was performed. . MICROSCOPIC CYTOLOGIC EXAMINATION OF SMEAR OF SPECIMEN FROM FEMALE GENITAL TRACT PREPARED USING PAPANICOLAOU TECHNIQUE / Unknown 08/18/2013 10:59 AM CDT 08/19/2013 3:13 AM CDT Narrative [facility] INSURANCE BILL - 08/21/2013 12:23 PM CDT Source.............Cervical;Endocervical Other..............Post Menopausal No. of containers..01 CYTYC Thin Prep Vial Resulting Agency Comment [address] [place] [phone] Priti Murray DO LAB - PATHOLOGY/CYTO LOGY ORDERABLES [facility] INSURANCE BILL * EMG WITH NERVE CONDUCTION STUDY (04/16/2011) Provider Unknown NEUROLOGY ORDERABLES * HEMOGLOBIN A1C (04/12/2011 8:47 AM CASING RUNNER) Hemoglobin A1c 5.2 <5.7 % of total Hgb [facility] [employer] Comment: Decreased risk of diabetes <5.7 Decreased risk of diabetes 5.7-6.0 Increased risk of diabetes 6.1-6.4 Higher risk of diabetes > or = 6.5 Consistent with diabetes Standards of Medical Care in Diabetes-2010. Diabetes Care, 33(Supp 1): S1-S61,2010. Test Performed at: [facility] [address] [facility] [place] [place] [address] OMAR HARDY DO,MPH Blood specimen (specimen) BLOOD SPECIMEN / Unknown 04/12/2011 8:47 AM CASING RUNNER 04/12/2011 8:48 AM CASING RUNNER Brandi Gross MD LAB - CHEMISTRY [place] Performing Organization Address [facility] Co de Phone Number [facility] [phone] [place] [address] * VITAMIN B12 (04/12/2011 8:47 AM CASING RUNNER) Vitamin B12 554 200 - 1100 pg/mL [facility] Comment: Test Performed at: [place] [address] OMAR HARDY DO,MPH Blood specimen (specimen) BLOOD SPECIMEN / Unknown 04/12/2011 8:47 AM CASING RUNNER 04/12/2011 8:48 AM CASING RUNNER Brandi Gross MD LAB - CHEMISTRY [place] Performing Organization Address [facility] Co de Phone Number [facility] [address] [place] [phone] * TSH (04/12/2011 8:47 AM CASING RUNNER) TSH 1.62 0.40 - 4.50 mIU/L [facility] Comment: Test Performed at: [place] [address] OMAR HARDY DO,MPH Blood specimen (specimen) BLOOD SPECIMEN / Unknown 04/12/2011 8:47 AM CASING RUNNER 04/12/2011 8:48 AM CASING RUNNER Brandi Gross MD LAB - CHEMISTRY [place] Performing Organization Address [facility] de Phone Number [facility] [address] [place], [place] [phone] * XR THORACIC SPINE 2 VW (09/04/2010 10:47 AM CDT) Anatomical Region Laterality Modality Spine Radiographic Estefanía ging 09/04/2010 10:5 5 AM CDT Impressions 09/04/2010 10:55 AM CDT No fracture or subluxation. Narrative 09/04/2010 10:55 AM CDT Thoracic spine; AP, lateral, and swimmer's views Date: 09/04/2010 History: Neuralgia Findings: Bony alignment is maintained and shows no subluxation. No anterior wedge compression deformities or fractures are evident. Vertebral body heights and intervertebral disc spaces are maintained. Procedure Note Lele Akins MD - 09/04/2010 Thoracic spine; AP, lateral, and swimmer's views Date: 09/04/2010 History: Neuralgia Findings: Bony alignment is maintained and shows no subluxation. No anterior wedge compression deformities or fractures are evident. Vertebral body heights and intervertebral disc spaces are maintained. IMPRESSION No fracture or subluxation. Jeremi Neil MD DIAGNOSTIC IMAGING O RDERABLES * XR CERVICAL SPINE 2 OR 3 VW (09/04/2010 10:46 AM CDT) Anatomical Region Laterality Modality Spine Radiographic Estefanía ging 09/04/2010 10:5 0 AM CDT Narrative 09/04/2010 11:35 AM CDT THREE-VIEW CERVICAL SPINE CLINICAL INFORMATION: Decreased range of motion and right arm pain. FINDINGS: The texture and density of the osseous structures appears normal. There is no fracture or subluxation or destruction. No significant degenerative change is present. There is relative preservation of vertebral height and intervertebral disc space height. The prevertebral soft tissues are normal. DIAGNOSIS: Normal. Procedure Note Sidney Mcdaniels MD - 09/04/2010 THREE-VIEW CERVICAL SPINE CLINICAL INFORMATION: Decreased range of motion and right arm pain. FINDINGS: The texture and density of the osseous structures appears normal. There is no fracture or subluxation or destruction. No significant degenerative change is present. There is relative preservation of vertebral height and intervertebral disc space height. The prevertebral soft tissues are normal. DIAGNOSIS: Normal. Jeremi Neil MD DIAGNOSTIC IMAGING O RDERABLES * PAP THIN PREP + HPV (PO REF LAB) (06/08/2010 9:37 AM CDT) Report Status FINAL [facility] Clinical Information [facility] Comment:Postmenopausal Ultrasound Date [facility] Comment:Information not prov ided Previous Pap [facility] Comment:Information not prov ided Prev. BX [facility] Comment:Information not prov ided Source [facility] Comment:Information not prov ided Statement of Adequacy [facility] Comment:SATISFACTORY FOR BONIFACIO LUATION Interpretation/Resul t [facility] Comment: Negative for intraepithelial lesion or malignancy. Atrophic pattern; predominantly parabasal cells Comment [facility] Comment: This Pap test has been evaluated with computer assisted technology. Drier And Evaporator Operator [facility] Comment: RRS, CT(ASCP) Test Performed at: [facility] [address] [place] [address] OMAR HARDY DO Human papillomavirus DNA High Risk NOT DETECTED [facility] Comment: Reference range: Not Detected Tested for high risk types 16,18,31,33,35,39,45,51,52, 56,58,59,68. The analytical performance characteristics of this assay, when used to test SurePath or vaginal specimens, have been determined by [employer]. Methodology: Hybrid Capture with Signal Amplification. MICROSCOPIC CYTOLOGIC EXAMINATION OF SMEAR OF SPECIMEN FROM FEMALE GENITAL TRACT PREPARED USING PAPANICOLAOU TECHNIQUE / Unknown 06/08/2010 9:37 AM CDT 06/08/2010 11:03 PM CDT Priti Murray DO LAB - PATHOLOGY/CYTO LOGY ORDERABLES [facility] [address] [place] [address] * OCCULT BLOOD FECES 1-3 SCREEN POINT OF CARE (AMB) (06/08/2010 9:35 AM CDT) Occult Blood 1 neg Negative Occult Blood 2 Negative Occult Blood 3 Negative Card Lot Number yes Card Exp Date yes Yes Developer Lot Number yes Developer Expiration Date yes Yes QC Negative neg Negative QC Positive STOOL SPECIMEN / Unknown 06/08/2010 9:35 AM CDT Priti Murray DO LAB - POINT OF CARE ORDERABLES * VITAMIN D 25-HYDROXY (03/16/2010 7:25 AM CASING RUNNER) Only the most recent of2 resultswithin the time period is included. Vitamin D, 25 Hydroxy 43 30 - 100 ng/mL [facility] Vitamin D, 25 Hydroxy D2 <4 ng/mL [facility] Vitamin D, 25 Hydroxy D3 43 ng/mL [facility] Comment: 25-OHD3 indicates both endogenous production and supplementation. 25-OHD2 is an indicator of exogenous sources such as diet or supplementation. Therapy is based on measurement of Total 25-OHD, with levels <20 ng/mL indicative of Vitamin D deficiency while levels between 20 ng/mL and 30 ng/mL suggest insufficiency. Optimal levels are >/=30 ng/mL. Test Performed at: [email or web address] [address] [place] [phone] BOB JOSHUA MD,FCAP 03/16/2010 7:25 AM CASING RUNNER 03/17/2010 2:22 AM CASING RUNNER Jeremi Neil MD LAB - CHEMISTRY [place] [facility] Organization Address City/State/ZIP Co de Phone Number [facility] [address] [place] [address] * XR LUMBAR SPINE 2 OR 3 VW (02/27/2010 5:02 PM CASING RUNNER) Anatomical Region Laterality Modality Spine Radiographic Estefanía ging 02/27/2010 5:52 PM CASING RUNNER Narrative 02/27/2010 6:57 PM CASING RUNNER Three-view lumbar spine CLINICAL INFORMATION: Sciatica. The osseous structures are normal in texture and density. Very minimal degenerative changes are present with mild joint space narrowing at L4-L5. No evidence of fracture, subluxation or bone destruction is seen. The underlying soft tissues appear normal. There is mild degenerative change of the left sacroiliac joint. DIAGNOSIS: Mild degenerative change as described. Procedure Note Sidney Mcdaniels MD - 02/27/2010 Three-view lumbar spine CLINICAL INFORMATION: Sciatica. The osseous structures are normal in texture and density. Very minimal degenerative changes are present with mild joint space narrowing at L4-L5. No evidence of fracture, subluxation or bone destruction is seen. The underlying soft tissues appear normal. There is mild degenerative change of the left sacroiliac joint. DIAGNOSIS: Mild degenerative change as described. Jeremi Neil MD DIAGNOSTIC IMAGING O RDERABLES * MAMMO SCREENING DIGITAL IMAGE BILAT (02/27/2010) Anatomical Region Laterality Modality Breast Bilateral Other Provider Unknown MAMMO ORDERABLES * LAB RESULTS ORDER (02/16/2010) Provider Unknown LAB - THERAPEUTIC DR GONZALEZ MONITORING ORDERABLES * CARDIAC EKG ORDER (02/16/2010) Provider Unknown CARDIAC SERVICES ORD ERABLES * LIPID PROFILE (06/08/2009 7:39 AM CDT) Only the most recent of2 resultswithin the time period is included. Cholesterol 192 125 - 200 mg/dL [facility] Comment: Test Performed at: [facility] [address] [place] [address] OMAR HARDY DO,MPH HDL Cholesterol 59 > OR = 46 mg/dL [facility] Triglycerides 115 <150 mg/dL [facility] LDL Calculated 110 <130 mg/dL (calc) [facility] Comment: Desirable range <100 mg/dL for patients with CHD or diabetes and <70 mg/dL for diabetic patients with known heart disease. CHOL/HDLC RATIO 3.3 < OR = 5.0 (calc) [facility] 06/08/2009 7:39 AM CDT 06/08/2009 7:39 AM CDT Jeremi Neil MD LAB - CHEMISTRY [place] [facility] Organization Address City/State/ZIP Co de Phone Number [facility] [address] [place] [address] * OCCULT BLOOD FECES - POINT OF CARE (IP) (2009 1:53 PM CASING RUNNER) Occult Blood neg Negative QC Verified Yes Card Exp Date Yes Developer Expiration Date Yes Stool specimen (specimen) STOOL SPECIMEN / Unknown Priit Murray DO LAB - POINT OF CARE ORDERABLES * CYTOLOGY CERVICAL/VAG DIAG THIN PREP (2009 1:09 PM CASING RUNNER) Report Status FINAL [facility] Clinical Information [facility] Comment:Postmenopausal Ultrasound Date [facility] Comment:Information not prov ided Previous Pap [facility] Comment:Information not prov ided Prev. BX [facility] Comment:Information not prov ided Source [facility] Comment:Information not prov ided Statement of Adequacy [facility] Comment:SATISFACTORY FOR BONIFACIO LUATION Interpretation/Resul t [facility] Comment: Negative for intraepithelial lesion or malignancy. Atrophic pattern; predominantly parabasal cells Comment [facility] Comment: This Pap test has been evaluated with computer assisted technology. Drier And Evaporator Operator [facility] Comment: BLG, CT(ASCP) Test Performed at: [address] [address] RUFUS HAINES MD MICROSCOPIC CYTOLOGIC EXAMINATION OF SMEAR OF SPECIMEN FROM FEMALE GENITAL TRACT PREPARED USING PAPANICOLAOU TECHNIQUE / Unknown 2009 1:09 PM CASING RUNNER 05/24/2009 1:51 AM CASING RUNNER Priti Murray DO LAB - PATHOLOGY/CYTO LOGY ORDERABLES [facility] [address] [place] [phone] * DEXA BONE DENSITY 2 SITES (03/07/2009) Anatomical Region Laterality Modality Other Jeremi Neil MD DEXA ORDERABLES * CYTOLOGY CERVICAL/VAG SCREEN THIN PREP (05/21/2008) Report Status FINAL [facility] Clinical Information [facility] Comment: Postmenopausal Normal exam Ultrasound Date [facility] Comment: Previous Pap [facility] Comment:1 17 08 Prev. BX [facility] Comment:Information not prov ided Source [facility] Comment:Vagina, Cervix, Endo cervix Statement of Adequacy [facility] Comment: Satisfactory for evaluation. Endocervical/transformation zone component present. Interpretation/Resul t [facility] Comment:Negative for intraep ithelial lesion or malignancy. Comment [facility] Comment: This Pap test has been evaluated with computer assisted technology. Based on the cytology result, reflex High Risk HPV DNA testing was not performed. Drier And Evaporator Operator [facility] Comment: BEF, CT(ASCP) Test Performed at: [address] [address] RUFUS HAINES MD 05/21/2008 05/24/2008 3:2 1 AM CDT Priti W Laue DO LAB - PATHOLOGY/CYTO LOGY ORDERABLES [facility] [address] [place] [address] * GROSS + MICRO EXAM (01/12/2005 12:03 PM CDT) Result CASE NUMBER [id number] Comment: ORDERING PHYSICIAN NICK HARRIS SPECIMEN TYPE Endometrium,Curetti Surgeon DR. NICK HARRIS Gross Exam DR. CYNDY ZHENG M.D. Gross Report COPY TO DR. PETER MORTENSEN INDICATION FOR PROCEDURE POST MENOPAUSAL BLEEDING OPERATION HYSTEROSCOPY, D/C GROSS TWO SPECIMENS ARE RECEIVED LABELED WITH THE PATIENT'S NAME. 1. THE SPECIMEN IS LABELED 'ENDOMETRIAL CURETTINGS' RECEIVED ON A SURGICAL TELFA PAD ARE MULTIPLE PIECES OF HEMORRHAGIC BROWN AND BUSTOS TISSUE IN AGGREGATE MEASURING APPROXIMATELY 1 X 1 X .2 CM. ALL SUBMITTED IN CASSETTE 'A'. 2. THE SPECIMEN IS LABELED 'ENDOCERVICAL CURETTINGS' RECEIVED ON A SURGICAL TELFA PAD ARE A FEW SMALL FRAGMENTS OF MUCOID BUSTOS AND RED BROWN TISSUE IN AGGREGATE MEASURING 1 X .3 X .2 CM. ALL SUBMITTED IN CASSETTE 'B'. [facility] [place] MICROSCOPIC 1. THE ENDOMETRIAL CURETTINGS SHOW A MIX OF FRAGMENTS OF WEAKLY PROLIFERATIVE ENDOMETRIUM AND ENDOCERVICAL TISSUE. NO CONVINCING HYPERPLASIA IS SEEN. 2. THE ENDOCERVICAL CURETTINGS CONSISTS OF FRAGMENTS OF BENIGN SQUAMOUS AND COLUMNAR ENDOCERVICAL TISSUE AND COPIOUS MUCUS. NO DYSPLASIA IS DETECTED. [facility] [place] DI[place]NOS[place] DIAGNOSIS [1] ENDOMETRIAL CURETTINGS -- WEAKLY PROLIFERATIVE ENDOMETRIUM [2] ENDOCERVICAL CURETTINGS -- NO PATHOLOGIC DIAGNOSIS /[facility] [place] By CYNDY ZHENG CPT Code 68818 X2 MISCELLANEOUS SAMPLES / Unknown 01/12/2005 12:03 PM CDT 01/12/2005 12:03 PM CDT Historical Provider LAB - PATHOLOGY/C YTOLOGY ORDERABLES Care Teams Shoe Salesman Relationship Specialty Start Date End Date Keven Puga DO [address] [facility] [address] [place] [phone] PCP - General Internal Medicine 09/28/22 Lloyd Grover PA-C [address] [facility] [address] [place] [address] Physician Gis Manager 09/28/22 [place] [address] [facility] [address] [place] [address] Obstetrics and Gynecology 09/28/22
--- OUTSIDE RECORDS SUMMARY | 2024-04-28 08:10 | XMS_ITS | Encounter Summary ---
Author Organization [facility] Address [address] [facility] [place] [address] Care Team Providers Care Field Superintendent Name Role Phone Carla Hu MD Primary Care Provider +- [phone] Keven Puga DO Primary Care Provider [phone] Lloyd Grover PA-C Unavailable +- [phone] Priti Murray DO Unavailable Encounter Details Date Type Department Care Team (Late st Contact Info) Description 08/04/2020 Lab Requisition [facility] Care DermPath Lab [address] [facility], [facility] [place] [phone] Alonso Martinez MD [address] [place] [address] Social History Tobacco Use Types Packs/Day Years Used Date Smoking Tobacco: Never Smokeless Tobacco: Never Alcohol Use Standard Drinks/Week Comments Yes 0 (1 standard drink = 0.6 oz pur e alcohol) 3-4 drinks yearly AUDIT-C Answer Date Recorded Q1: How often do you have a drink containing alc ohol? Monthly or less 01/21/2020 Average Number of Drinks Not on file 020 Q3: How often do you have si x or more drinks on one occasion? Never 01/21/2020 Sex and Gender Information Value Date Recorded Sex Assigned at Not on file Gender Identity Not on file Sexual Orientation Not on file documented as of this encounter Functional Status Functional Status Response Date of [...] person have difficulty concentrating/remembering/making decisions? No 01/21/2020 documented as of this encounter Plan of Treatment Not on file documented as of this encounter Procedures Procedure Name Priority Date/Time Associated Diagnosis Comments DERMATOPATHOLOGY Routine 08/03/2020 3:33 AM CDT documented in this encounter Results * DERMATOPATHOLOGY (08/03/2020 3:33 AM CDT) Case Report Dermatopathology Report Case: [id number] Authorizing Provider: Alonso Martinez MD Collected: 08/03/2020 03:33 AM Ordering Location: [facility] DermPath Lab Received: 08/04/2020 07:59 AM Pathologist: Domi Torres MD Specimen: Skin, right mid back 1 4:15 PM CDT DERMATOPATHOLOGY LABORATORY Final Diagnosis Specimen A. SKIN, right mid back: NEUROFIBROMA ([id number]) 1 4:15 PM CDT DERMATOPATHOLOGY LABORATORY Clinical History R/O neoplasia. 1 4:15 PM CDT DERMATOPATHOLOGY LABORATORY Gross Description Specimen A: Received is one formalin filled container labeled with the patient's name and designated right mid back. The specimen consists of a shave biopsy measuring [id number]. Jar 0. 1 4:15 PM CDT DERMATOPATHOLOGY LABORATORY Microscopic Description Specimen A. SKIN, right mid back: Sections show a proliferation of spindled and S-shaped cells within the dermis. The stromal collagen is delicate and pale. 1 4:15 PM T DERMATOPATHOLOGY LABORATORY Disclaimer An external and internal positive and negative controls are appropriate for the histochemical, immunohistochemical and immunofluorescence stain(s) in this case (if any), except where stated explicitly. The performance characteristics of the stain(s) cited in this report were developed and its performance characteristic determined by the Dermatopathology Laboratory at [facility], directed by Dr. Feli Tate. These tests need not be, and therefore are not, approved by the [place] Food and Drug Administration. The tests are used for clinical purposes. Billing Codes Specimen Charges Stain Charges 31156 1 1 4:15 PM CDT DERMATOPATHOLOGY LABORATORY Embedded Images 1 4:15 PM CDT DERMATOPATHOLOGY LABORATORY Pathology/Cytolo gy TISSUE SPECIMEN FROM SKIN / Unknown 08/03/2020 3:33 AM CDT 08/04/2020 7:59 AM CDT Alonso Martinez MD LAB - PATHOLOGY/CYTO LOGY ORDERABLES DERMATOPATHOLOGY LABORATORY [facility] - Department of Dermatology [address], [address] Floor [address] [phone] documented in this encounter Visit Diagnoses Not on filedocumented in this encounter Care Teams Field Superintendent Relationship Specialty Start Date End Date Carla Hu MD [address] [place] [address] [address] [place] [phone] PCP - General 08/03/20 09/27/22 Keven Puga DO [address] [place] [phone] PCP - General Internal Medicine 09/28/22 Lloyd Grover PA-C [address] [place] [address] Physician Community Cultural Development Officer 09/28/22 [place] [address] [facility] [address] [place] [address] Obstetrics and Gynecology 09/28/22 documented as of this encounter
--- OUTSIDE RECORDS SUMMARY | 2024-04-28 08:10 | XMS_ITS | Clinical Summary ---
Author Organization [facility] Address [address] [place] [address] Care Team Providers Care Associate Justice Name Role Phone Lloyd Grover Primary Care Provider Allergies Active Allergy Reactions Criticality Noted Date [...] 07/12/2023 Allergic rhinitis due to pollen 06/09/2001 Encounters Date Type Department Care Team Description 04/10/2024 Telephone [facility] Cardiology [address] [place] [phone] Dolly Chan NP 03/30/2024 8:00 AM MACHINE ADJUSTER HELPER Office Visit [facility] Cardiology [address] [place] [address] Dolly Chan NP Hypertension, unspecified type (Primary Dx); Dizziness; Hyperlipidemia, unspecified hyperlipidemia type from Last 3 Months Immunizations Name Administration Dates Next Due Pfizer Sars-Cov-2 Bivalent Vaccination (12+ YRS) 02/01/2022 Surgical History Surgery Date Site/Laterality Comments TOTAL ABDOMINAL HYSTERECTOMY W/ BILATERAL SALPINGOOPHORECTOMY Medical History Medical History Date Comments Hypertension Arthritis Family History Medical History Relation Name Comments Esophageal cancer Brother Prostate cancer Father Transient ischemic attack Father Breast cancer Mother Arrhythmia Sister Relation Name Status Comments Brother Father Mother Sister Social History Tobacco Use Types Packs/Day Years [...] on file Legal Sex Female 8:35 AM MACHINE ADJUSTER HELPER Gender Identity Not on file Sexual Orientation Not on file Obstetrics History Last Filed Vital Signs Vital Sign Reading Time Taken Comments Blood Pressure 114/68 03/30/2024 7:58 AM MACHINE ADJUSTER HELPER Pulse 94 03/30/2024 7:58 AM MACHINE ADJUSTER HELPER Temperature - - Respiratory Rate - - Oxygen Saturation 99% 03/30/2024 7:58 AM MACHINE ADJUSTER HELPER Inhaled Oxygen Concentration - - Weight 88.9 kg (196 lb) 03/30/2024 7:58 AM MACHINE ADJUSTER HELPER Height 167.6 cm (5' 6 ) 03/30/2024 7:58 AM MACHINE ADJUSTER HELPER Body Mass Index 31.64 03/30/2024 7:58 AM MACHINE ADJUSTER HELPER Plan of Treatment Health Maintenance Due Date Last Done Comments Depression Screening 1945 Fall Risk Assessment 1945 Hepatitis C Screening 1945 Osteoporosis Screening-Bone Density Scan 1945 Hepatitis B Screening 1964 Well Visit 65+ 05/24/2011 Covid-19 Vaccine (2023-2 5 season) 2023 02/01/2022, 10/24/2021, 01/25/2021, Additional history exists Influenza Vaccine (#1) 2023 2, 12/26/2020, 12/18/2019, Additional history exists DTaP/Tdap/Td Vaccine (3 - Td or Tdap) 04/05/2027 04/05/2017, 04/04/2017 Pneumococcal vaccine 65+ Completed 06/28/2015, 02/15 Zoster Vaccine Completed 02/26/2020, 12/16, 12/15/2012 Procedures Procedure Name Priority Date/Time Associated Diagnosis Comments US CAROTIDS DUPLEX BILATERAL Routine 03/30/2024 Dizziness Hyperlipidemia, unspecified hyperlipidemia type from Last 3 Months Results * US Carotids Duplex Bilateral (03/30/2024) Anatomical Region Laterality Modality Vascular Bilateral Ultrasound Dolly Chan CAR RENTAL AGENT IMG US PROCEDURES Final R esult from Last 3 Months Insurance MEDICARE SOLUTIONS Care Teams Associate Justice Relationship Specialty Start Date End Date Lloyd Grover PA [address] [facility] [address] [place] [address] PCP - General Physician Pelt Dropper 07/09/23
--- OUTSIDE RECORDS SUMMARY | 2024-04-28 08:10 | XMS_ITS | Encounter Summary ---
Author Organization 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 Historical Provider Final Res ult documented in this encounter Visit Diagnoses Not on filedocumented in this encounter Care Teams Information And Referral Director Relationship Specialty Start Date End Date No, Physician PCP - General 05/20/23 07/08/23 Lloyd Grover PA [address] [place] [address] PCP - General Physician Welder/Fitter 07/09/23 documented as of this encounter
--- OUTSIDE RECORDS SUMMARY | 2024-04-28 08:10 | XMS_ITS | Clinical Summary ---
Author Organization [facility] Address [address] [facility] [place] [address] Care Team Providers Care Top Cleaner Name Role Phone Keven Puga Savanna DO Primary Care Provider [phone] Lloyd Grover PA-C Unavailable [phone] Priti Murray DO Unavailable Source Comments [facility],non-owned Affiliates and Associated Physician Practices is amultiple site organization consisting of ambulatory clinics and hospital sitesin [place], [place], [place] and [place]. This disclosure is being madepursuant to the Care Everywhere program and may not contain all information available regarding this patient. Last updated 17.[facility] Allergies Active Allergy Reactions Criticality Noted Date [...] 500 mg by mouth once daily Active [facility]-Lmgc-Mbc D-Vit K [id number] MG-UNT-MCG CHEW Take by mouth 3 times [...] Overview (03/12/2011): Pap/pelvic 05/2010 NL done by TIME CLOCK REPAIRER Other screening mammogram 03/12/2011 Overview (03/12/2011): mammo [...] Name Administration Dates Next Due INFLUENZA A [id number] VACCINE 02/15/2009 INFLUENZA VACCINE 03/01/2011 Family History Medical History Relation Name Comments Cancer Brother 2 Esophageal canc er Diabetes Brother 3 Arthritis - Rheumatoid Father Arthritis - Rheumatoid Mother Cancer - Breast Mother breast CAD (Coronary Artery Disease) Paternal Grandfather Arthritis - Rheumatoid Sister 2 Diabetes Sister 3 Hypertension Sister 4 Migraine Sister 5 Heart Failure Sister 6 s/p pacemaker Relation Name Status Comments Brother 1 Brother 2 Brother 3 Father Mother Paternal Grandfather Sister 1 Alive Sister 2 Sister 3 Sister 4 Sister 5 Sister 6 Social History Tobacco Use Types Packs/Day Years [...] 36.7 C (98.1 F) 01/21/2020 9:06 AM MEDIA CLERK Respiratory Rate 18 01/21/2020 9:06 AM MEDIA CLERK Oxygen Saturation 99% 02/23/2020 2:04 PM MEDIA CLERK Inhaled Oxygen Concentration - - Weight 89.4 kg (197 lb) 09/28/2022 9:41 AM CDT Height 167.6 cm (5' 6 ) 09/28/2022 9:41 AM CDT Body Mass Index 31.8 09/28/2022 9:41 AM CDT Plan of Treatment Health Maintenance Due Date Last Done Comments HEPATITIS C SCREENING 05/18/1963 DTAP/TDAP/TD VACCINES (1 - Tdap) 1965 PNEUMOCOCCAL VACCINE 50+ (1 of 1 - PCV) 1996 ZOSTER VACCINE (1 of 2) 1996 Respiratory Syncytial Virus (RSV) Vaccine Pt: or over 60 yrs (1 - 1-dose 75+ series) 2021 COVID-19 VACCINE (5 - 2023- season) 2023 02/01/2022, 01/25/2021, 05/17/2020, Additional history exists INFLUENZA VACCINE (#1) 2023 , 12/18/2019, 11/24/2018, Additional history exists DEPRESSION SCREENING 03/18/2024 09/28/2022 MEDICARE AWV CALENDAR YEAR 2024 BONE DENSITY TESTING Completed 03/07/2009 HEPATITIS B VACCINE Aged Out No longe r eligible based on patient's age to complete this topic HIB VACCINE Aged Out No longer eligi ble based on patient's age to complete this topic HPV VACCINE Aged Out No longer eligi ble based on patient's age to complete this topic MENINGOCOCCAL (Group B) VACCINE Aged Out No longer eligible based on patient's age to complete this topic MENINGOCOCCAL VACCINE Aged Out No sissy thomas eligible based on patient's age to complete this topic Procedures Procedure Name Priority Date/Time Associated Diagnosis [...] Documents on File Type Date Recorded Patient Decal Cutter Expl anation Adv Directive/Living Will/POA 01/25/2020 11:38 PM Adv Directive/Living Will/POA 04/12/2008 Care Teams Top Cleaner Relationship Specialty Start Date End Date Keven Puga DO [address] [place] [address] PCP - General Internal Medicine 09/28/22 Lloyd Grover PA-C [address] [place] [address] Physician Defect Repairer Glassware 09/28/22 [place] [address] [address] Obstetrics and Gynecology 09/28/22
--- OUTSIDE RECORDS SUMMARY | 2024-04-28 08:10 | XMS_ITS | Continuity of Care Document ---
Author Organization [facility] Address [address] [place] [address] Phone Care Team Providers Care Press Operator Carbon Blocks Name Role Phone Aden Laguerre DO Unavailable Unavailable Allergies, Adverse Reactions, Alerts Substance Reaction Status Criticality estrogens, conjugated Rash Active No Inf ormation MEDROXYPROGESTERONE ACETATE Rash Active No Information nabumetone Other Active No Information sulfamethoxazole Rash Active No Informat ion Advance Directives Directive Yes / No Effective Date File Name No Information Encounters Encounter Description Practice Location Reason(s) For Visit Diagnoses Date Provider Providers Copied on Encounter [facility], [address], [place], [place], [address] , tel: [phone] Carlotta No Information Carlotta Samaniego. [address], [place], [place], [id number] , [place]. tel: [phone] [facility], [address], [place], [place], [address] , tel: [phone] Laguerre ACUTE SINUSITIS NOSDYSFUNCT EUSTACHIAN TUBE 8 Mercedes Meredith. [address] [facility] [address], [place], [place], [address] . tel: [phone] [facility], [address], [place], [place], [address] , [place] tel: [phone] Laguerre TMJ DISORDERS NOSLONG-TERM USE MEDS [facility] 9-200 7 Mercedes Meredith. [address], [place], [place], [address] . tel: [phone] [facility], [address], [place], [place], [address] , tel: [phone] Laguerre OSTEOPOROSIS NOSVAGINITIS NOSBENIGN NEOPLASM NEC 200 7 Carlotta Samaniego. [address] [facility], [place], [place], [address] , [place]. tel: [phone] [facility], [address], [place], [place], [address] , [place] tel:[phone] Laguerre RHINITIS DUE TO POLLEN 7 Carlotta Samaniego. [address] [facility], [place], [place], [address] , [place]. tel: [phone] [facility], [address], [place], [place], [address] , [place] tel:[phone] Laguerre JOINT PAIN-HAND 6 Long Viri. [address] [facility], [place], [place], [address] . tel: [phone] [facility], [address], [place], [place], [address] , [place] tel:[phone] Laguerre FINGER INJURY NOS 6 Laguerrelarry Samaniego. [address] [facility], [place], [place], [address] , [place]. tel: [phone] [facility], [address], [place], [place], [address] , [place] tel:[phone] Laguerre SYNOV/TEND/BURSA DIS NECSEBACEOUS CYST 1200 6 Laguerrelarry Samaniego. [address] [facility], [place], [place], [address] , [place]. tel: [phone] [facility], [address], [place], [place], [address] , [place] tel:[phone] Laguerre DEPRESSIVE DISORDER NECMIXED HYPERLIPIDEMIAOTH SPECFD VIRAL WARTSHEARING LOSS NOS 8-200 5 Laguerrelarry Samaniego. [address] [facility], [place], [place], [address] , [place]. tel: [phone] [facility], [address], [place], [place], [address] , [place] tel: [phone] Laguerre ANXIETY STATE NOSOTH R [facility] MGRN 0-200 5 Carlotta Aden. [address] [facility] [address], [place], [place], [address] , [place]. tel: [phone] [facility], [address], [place], [place], [address] , [place] tel: [phone] Laguerre ACUTE NASOPHARYNGITISACUTE BRONCHITIS 4-200 4 [address]. [address] [facility], [place], [place], [address] . tel: [phone] [facility], [address], [place], [place], [address] , [place] tel:[phone] Laguerre MALAISE AND FATIGUE NEC 0-200 4 Long Viri. [address] [facility] [address], [place], [place], [address] . tel: [phone] [facility], [address], [place], [place], [address] , [place] tel: [phone] Laguerre JOINT PAIN-L/LEG Nov- 9200 3 [address]. [address] [facility] [address], [place], [place], [address] . tel: [phone] [facility], [address], [place], [place], [address] , [place] tel: [phone] Laguerre JOINT PAIN-FOREARM [address] [facility], [place], [place], [address] . tel: [phone] [facility], [address], [place], [place], [address] , [place] tel: [phone] Laguerre SYMPT FEM CLIMACT STATE Sep-0 4200 [address] [facility] [address], [place], [place], [address] . tel: [phone] [facility], [address], [place], [place], [address] , [place] tel: [phone] Laguerre BREAST DISORDER NOS Feb-2 3-200 1 [address]. [address] [facility], [place], [place], [address] . tel: [phone] [facility], [address], [place], [place], [address] , tel: [phone] Laguerre SYNOVITIS NOS 6-200 0 Laguerre Aden. [address] [facility], [place], [place], [address] , . tel: [phone] [facility], [address], [place], [place], [address] , tel: [phone] Laguerre SPRAIN SHOULDER/ARM NEC 2-200 0 [address]. [address] [facility], [place], [place], [address] . tel: [phone] [facility], [address], [place], [place], [address] , tel: [phone] Laguerre PREMENOPAUSE MENORRHAGIAFLUSHING 9-199 9 [address]. [address] [facility], [place], [place], [address] . tel: [phone] [facility] [address], [place], [place], [address] , tel: [phone] Laguerre NEVUS, NON-NEOPLASTICSKIN HYPERTRO/ATROPH NOS 7-199 [address]. [facility] [place], [place], [address] . tel: [phone] Family History Family Member Type Diagnosis Age At Onset No Information Payers Payer name Insurance type Covered green party ID Authoriza tion(s) No Information Social History Type Description Quantity Date Captured Comments Alcohol Use Details Unknown Caffeine Use Details Unknown Tobacco Use Status No Information Smoking Status No Information Sex Female Chief Complaint And Reason For Visit No Information Reason For Referral Reason For Referral No Information History Of Present Illness Encounter Date Complaint History Of Prese nt Illness No Information Functional Status Date Functional Assessmen t No Information Instructions Date Instruction Additional Infor mation No Information Assessments Type Assessment Date No Information Patient Care Teams Name Effective Dates (start - stop) Status Members No Information
--- OUTSIDE RECORDS SUMMARY | 2024-04-28 08:10 | XMS_ITS | Clinical Summary ---
Author Organization [facility] Address [address] [place] [address] Care Team Providers Care Employee Communications Intern Name Role Phone Unavailable Primary Care Provider Unavailabl e Social History Tobacco Use Types Packs/Day Years Used Date Smoking Tobacco: Never Assessed Comments Unknown Sex and Gender Information Value Date Recorded Sex Assigned at Not on file Legal Sex Female 4:32 PM CDT Gender Identity Not on file Sexual Orientation Not on file Plan of Treatment Health Maintenance Due Date Last Done Comments Hepatitis C 1963 DTaP, Tdap and Td Vaccines ( 1 - Tdap) 1965 Zoster Vaccines (1 of 2) 1996 Dexa Scan (General) 05/24/2011 Pneumococcal Vaccine: 65+ Ye ars (1 of 1 - PCV) 05/24/2011 RSV Immunization or 60+ Years (1 - 1-dose 75+ series) 2021 COVID-19 Vaccine (2023-2 5 season) 2023 Influenza Adult (#1) 2023 Meningococcal B Vaccine Aged Out No l onger eligible based on patient's age to complete this topic Meningococcal Vaccine Aged Out No sissy thomas eligible based on patient's age to complete this topic RSV Immunizations Under 20 Months Aged Out No longer eligible based on patient's age to complete this topic
--- OUTSIDE RECORDS SUMMARY | 2024-04-28 08:11 | XMS_ITS | Clinical Summary ---
Author Organization [facility] Address [address] [place] [address] Phone Care Team Providers Care Field Secretary Name Role Phone Shireen Russ MD, Darrian Hay Primary Care Provi anum Allergies Active Allergy Reactions Criticality Noted Date Comments Estrogens Rash Low 02/19/2012 Nabumetone Other (See Comments) 02/19/2012 HIGH BLOOD PRESSURE Sulfa (Sulfonamide Antibiotics) Hives,Swelling High 02/19/2012 Medications estradiol (ESTRACE) 0.01 % (0.1 mg/g) Vaginal Crea Insert vaginally daily. Active calcium-vitamin D3-vitamin K (VIACTIV) 500-100-40 mg-unit-mcg Oral Chew Take by mouth daily. Active multivitamin (DAILY-IVET) Oral tablet Take 1 Tab by mouth daily. Active ASPIRIN/ACETAMI NOPHEN/CAFFEINE (EXCEDRIN MIGRAINE ORAL) Take by mouth. Active ibuprofen (MOTRIN) 600 mg Oral tabletIndicatio ns:Left hip pain,Left knee pain Take 1 Tab by mouth every 8 hours as needed for Pain, Mild or Pain, Moderate. 60 Tab 2 2 Active colesevelam (WELCHOL) 625 mg Oral TabIndications: Hyperlipidemia Take 3 Tabs by mouth 2 times daily with meals. 540 Tab 1 3 Active colesevelam (WELCHOL) 3.75 gram Oral powder Take 1 Packet by mouth daily. 90 Packet 3 3 Active Active Problems Problem Noted Date Diagnosed Date History of osteopenia Overview (02/19/2012): On actonel in the past. Increased bone density once activity increased in 2004 Hyperlipidemia Immunizations Immunization Administration Dates Next Due (PNEUMOVAX 23)(50 YRS UP) PN EUMOCOCCAL POLYSACCHARIDE (PPV23) 0.5 ML, IM 03/04/2013 Influenza Seasonal Unspecified Formulation IM Zoster Vaccine Live SQ 12/15/2012 Family History Medical History Relation Name Comments Cancer Brother Esophageal Diabetes Brother Stroke Father Breast Cancer Mother Relation Name Status Comments Brother Father Mother Social History Tobacco Use Types Packs/Day Years Used Date Smoking Tobacco: Never Smokeless Tobacco: Never Alcohol Use Standard Drinks/Week Comments Yes 0 (1 standard drink = 0.6 oz pur e alcohol) Rare Comments Unknown Sex and Gender Information Value Date Recorded Sex Assigned at Not on file Legal Sex Female 6:08 AM WOOD ROOM HAND Gender Identity Not on file Sexual Orientation Not on file 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 Not on file No t on file Last Filed Vital Signs Vital Sign Reading Time Taken Comments Blood Pressure 130/72 12/17/2012 2:02 PM CDT rig ht arm Pulse 70 12/17/2012 2:02 PM CDT right arm Temperature - - Respiratory Rate - - Oxygen Saturation - - Inhaled Oxygen Concentration - - Weight 81.6 kg (180 lb) 12/17/2012 2:02 PM CDT Height 167.6 cm (5' 6 ) 12/17/2012 2:02 PM CDT Body Mass Index 29.05 12/17/2012 2:02 PM CDT Plan of Treatment Health Maintenance Due Date Last Done Comments DTAP/TDAP/TD VACCINES (1 - Tdap) 1965 ZOSTER VACCINE (2 of 3) 02/09/2013 12/15/2012 PNEUMOCOCCAL VACCINE 65+ YEARS (2 of 2 - PCV) 03/04/20 14 03/04/2013 RSV VACCINE (60+ or ) (1 - 1-dose 75+ series) 2021 INFLUENZA VACCINE (#1) 2023 01/19/2013 COLORECTAL SCREENING Discontinued 02/18/2002 Colorectal Cancer Screening Discontinued OSTEOPOROSIS SCREENING Completed 01/19/2011 FIT-DNA Q 3 years Discontinued FIT/FOBT Q 1 year Discontinued Flex Sig/CT Colonography Q 5 years [place] [address] MEDICARE PART A AND B Care Teams Field Secretary Relationship Specialty Start Date End Date Darrian Iyer Jr., MD PCP - General Internal Medicine 02/19/12
--- OUTSIDE RECORDS SUMMARY | 2024-04-28 08:11 | XMS_ITS | Continuity of Care Document ---
Author Organization [facility] Address [address] [place] [address] [place] [address] Phone Care Team Providers Care Sport Psychologist Name Role Phone Ryan Villanueva Unavailable Unavailable Procedures Procedure Date Visual Field Examination(s) No Charge Glasses Check Anti-reflective Coating Progressive Lens, Polycarb Frame - Up To $160 Progressive Lens, Polycarb Miscellaneous Vision Service - Supplies Anti-reflective Coating Tint Photochromatic, Polycarb 0 Polycarb Lens Per Lens Eye Exam & Treatment Refraction Visual Field Examination(s) Eye Exam & Treatment Refraction Office/outpatient Visit, Est Advance Directives Directive Yes / No Effective Date File Name No Information Encounters Encounter Description Practice Location Reason(s) For Visit Diagnoses Date Provider Providers Copied on Encounter [facility], [address] [place] [address] [address], [place], [place], [id number], [place] tel:[phone] [facility] No Information 0 Kay Davis. Keisha [facility] [address], [place], [address], [place]. tel:[phone] Referring Provider: Keisha Valera [facility] [address], [place], [address]. tel:[phone] [facility], [address] [place] [address] [address], [place], [place], [id number], [place] tel:[phone] [facility] No Information Alexander-0 3-201 0 Payton OD Gerber. [facility] , [address], [place], [address], [place]. tel:[phone] [facility], [address], [place], [place], [address], [place] tel:[phone] [facility] No Information Alexander-0 3-201 0 [facility] . [address], [address], [place], [place], [address], [place]. tel:[phone] Referring Provider: Gerber Tobias, [address] [place], [place] [address]ate [address], [place], [address]. tel:[phone] sulting Provider: Gena Phoenix, [address] [place] [address], [facility]. tel:[phone] [facility], [address] [place] [address] [address], [place], [place], [address], [place] tel:[phone] [facility] No Information May-0 7-201 0 [facility] . [address], [address], [place], [place], [address], [place]. tel:[phone] Referring Provider: Ryan Tobias, [address] [place], [place] [address], [place], [address]. tel:[phone] sulting Provider: Gena Phoenix, [address] [place] [address], [address]. tel:[phone] [facility], [address], [place], [place], [address], [place] tel:[phone] [facility] No Information Apr-0 5-201 0 Kay Davis. [address] [place], [place] [address], [address], [place], [address], [place]. tel:[phone] [facility], [address], [place], [place], [address], [place] tel:[phone] [facility] No Information 200 9 Kay Davis. [address], [address], [place], [facility], . tel:[phone] Referring Provider: Ryan Tobias, [facility] [address], [place], [facility]. tel:[phone] [facility], [address], [place], [place], [address], tel:[phone] [facility] No Information 8200 9 Kay Davis. [facility] [address], [address], [place], [facility], . tel:[phone] [facility], [address], [place], [place], [address], tel:[phone] [facility] No Information 5200 7 Payton OD Gerber. [facility] [address], [address], [place], [facility], . tel:[phone] Office/outpat ient Visit, Est [facility], [address] [place] [address] [address], [place], [place], [address], tel:[phone] [facility] No Information 4200 7 Kay Davis. [address] [place], [place] [address]ate [address], [address], [place], [facility], . tel:[phone] Family History Family Member Type Diagnosis Age At Onset No Information Payers Payer name Insurance type Covered libertarian ID Authoriza tion(s) No Information Social History Type Description Quantity Date Captured Comments Sex Female Smoking Status No Information Chief Complaint And Reason For Visit No [...]
--- OUTSIDE RECORDS SUMMARY | 2024-04-28 08:11 | XMS_ITS | Encounter Summary ---
Author Organization [facility] Health Address [address] [facility] [place] [address] Care Team Providers Care Regional Rehabilitation Director Name Role Phone Carla Hu MD Primary Care Provider +- [phone] Keven Puga DO Primary Care Provider [phone] Keven Puga DO Primary Care Provider +- [phone] Lloyd Grover PA-C Primary Care Provide r Carla Hu MD Primary Care Provider + [phone] Keven Puga DO Primary Care Provider [phone] Lloyd Grover PA-C Unavailable +- [phone] Priti Murray DO Unavailable Encounter Details Date Type Department Care Team (Late st Contact Info) Description 08/26/2013 SS Outpatient Visit EXTERNAL [place] [address] [address] Social History Tobacco Use Types Packs/Day Years Used Date Smoking Tobacco: Never Smokeless Tobacco: Never Alcohol Use Standard Drinks/Week Comments Yes 0 (1 standard drink = 0.6 oz pur e alcohol) 3-4 drinks yearly Sex and Gender Information Value Date Recorded Sex Assigned at Not on file Gender Identity Not on file Sexual Orientation Not on file documented as of this encounter Plan of Treatment Not on file documented as of this encounter Visit Diagnoses Not on filedocumented in this encounter Care Teams Regional Rehabilitation Director Relationship Specialty Start Date End Date Carla Hu MD PCP - General Adolescent Medicine 08/26/13 09/07/14 Keven Puga DO [address] [place] [address] [place] [address] [address] [place] [address] PCP - General Internal Medicine 09/08/14 09/11/16 Keven Puga DO [address] [place] [address] [place] [address] PCP - General Internal Medicine 09/12/16 01/19/20 Lloyd Grover PA-C [address] [place] [address] [address] [place] [address] PCP - General Physician Conveyor Line Bakery Worker 01/20/20 08/02/20 Carla Hu MD [address] [place] [address] 20 [place] [address] PCP - General 08/03/20 09/27/22 Keven Puga DO [address] [place] [address] [address] [address] PCP - General Internal Medicine 09/28/22 Lloyd Grover PA-C [address] [facility] [address] [place] [address] Physician Conveyor Line Bakery Worker 09/28/22 [place] [address] [address] Obstetrics and Gynecology 09/28/22 documented as of this encounter
== END 2024-04-28 07:50 | disposition home or self-care (01) ==
LOC: ANHAUDIO 07:50
PROVIDERS: PCP Internal Medicine; Visit Provider Internal Medicine
DX: H93.13 Tinnitus, bilateral (principal); R42 Dizziness and giddiness; H90.3 Sensorineural hearing loss, bilateral; H93.292 Other abnormal auditory perceptions, left ear; H73.892 Other specified disorders of tympanic membrane, left ear
CPT/HCPCS: 92557; 92567

== ENCOUNTER 2024-06-20 07:28 | Outpatient (CLI) | payer MEDICARE, SELFPAY ==
--- NOTE | ~2024-06-20 | MM_ITS ---
EXAMINATION: MM screening [facility] BI w marlyn HISTORY: Screening TECHNIQUE: Craniocaudal and mediolateral oblique 3-D tomosynthesis images were obtained and synthetic 2-D images were generated. CAD analysis was submitted and interpreted. COMPARISON: Comparison to multiple prior studies sequentially, with oldest reviewed study dated 10/31. BREAST PARENCHYMAL COMPOSITION: Not dense: There are scattered areas of fibroglandular density. FINDINGS: There is no evidence of suspicious mass, calcification, or architectural distortion to sugg est malignancy in either breast. There has been no suspicious interval change. IMPRESSION: 1. No mammographic evidence of malignancy. 2. Recommend routine screening mammography in one year. BI-RADS Category 1: Negative Reviewed, dictated and finalized at location A.
--- OUTSIDE RECORDS SUMMARY | 2024-06-20 07:32 | XMS_ITS | Clinical Summary ---
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 Not on file No [...] (2 of 3) 02/09/2013 12/15/2012 PNEUMOCOCCAL VACCINE 50+ YEARS (2 of 2 - PCV) 03/04/20 14 03/04/2013 RSV VACCINE (60+ or ) (1 - 1-dose 75+ series) 2021 INFLUENZA VACCINE (#1) 2023 01/19/2013 COLORECTAL SCREENING Discontinued 02/18/2002 Colorectal Cancer Screening Discontinued OSTEOPOROSIS SCREENING Completed 01/19/2011 FIT-DNA Q 3 years Discontinued FIT/FOBT Q 1 year Discontinued Flex Sig/CT Colonography Q 5 years [place] [address] MEDICARE PART A AND B Care Teams Cupola Operator Insulation Relationship Specialty Start Date End Date Darrian Iyer Jr., MD PCP - General Internal Medicine 02/19/12
--- OUTSIDE RECORDS SUMMARY | 2024-06-20 07:32 | XMS_ITS | Encounter Summary ---
Author Organization [facility] Address [address] [facility] [address] Care Team Providers Care Community Health Nurse Staff Name Role Phone Carla Hu MD Primary Care Provider +- [phone] Keven Puga DO Primary Care Provider [phone] Lloyd Grover PA-C Unavailable +- [phone] Priti Murray DO Unavailable Encounter Details Date Type Department Care Team (Late st Contact Info) Description 08/04/2020 Lab Requisition [facility] [address] [facility], [facility] [place] [id number] Alonso Martinez MD [address] [place] [address] Social History Tobacco Use Types [...] AM CDT) Case Report Dermatopathology Report Case: [id number] Authorizing Provider: Alonso Martinez MD Collected: 08/03/2020 03:33 AM Ordering Location: [facility] Received: 08/04/2020 07:59 AM Pathologist: [...] specimen consists of a shave biopsy measuring [id number]. Jar 0. 1 4:15 PM CDT DERMATOPATHOLOGY [...] characteristic determined by the Dermatopathology Laboratory at [facility], directed by Dr. Feli Tate. These tests need not be, and therefore are not, approved by the [place] Food and Drug Administration. The tests are used for clinical purposes. Billing Codes Specimen Charges Stain Charges 24184 1 1 4:15 PM CDT DERMATOPATHOLOGY LABORATORY Embedded Images 1 4:15 PM CDT DERMATOPATHOLOGY LABORATORY Pathology/Cytolo gy TISSUE SPECIMEN FROM SKIN / Unknown 08/03/2020 3:33 AM CDT 08/04/2020 7:59 AM CDT Alonso Martinez MD LAB - PATHOLOGY/CYTO LOGY ORDERABLES DERMATOPATHOLOGY LABORATORY [facility] - Department of Dermatology [address], [address] [phone] documented in this encounter Visit Diagnoses Not on filedocumented in this encounter Care Teams Community Health Nurse Staff Relationship Specialty Start Date End Date Carla Hu MD [address] [place] [address] [address] [place] [phone] PCP - General 08/03/20 09/27/22 Keven Puga DO [address] [place] [address] PCP - General Internal Medicine 09/28/22 Lloyd Grover PA-C [address] [place] [address] Physician Store Cashier 09/28/[address] [place] [address] [facility] [address] [place] [address] Obstetrics and Gynecology 09/28/22 documented as of this encounter
--- OUTSIDE RECORDS SUMMARY | 2024-06-20 07:32 | XMS_ITS | Encounter Summary ---
Author Organization [facility] Health Address [address] [facility] [place] [address] Care Team Providers Care Agricultural Inspector Name Role Phone Carla Hu MD Primary Care Provider +- [phone] Keven Puga DO Primary Care Provider [phone] Keven Puga DO Primary Care Provider +- [phone] Lloyd Grover PA-C Primary Care Provide r Carla Hu MD Primary Care Provider + [phone] Keven Puga DO Primary Care Provider [phone] Lloyd Grover PA-C Unavailable +- [phone] Priti Murray DO Unavailable Encounter Details Date Type Department Care Team (Late st Contact Info) Description 08/26/2013 SS Outpatient Visit [facility]TERNAL [place] [address] [facility] [address] [place] [address] Social History Tobacco Use Types Packs/Day [...] on filedocumented in this encounter Care Teams Agricultural Inspector Relationship Specialty Start Date End Date Carla Hu MD PCP - General Adolescent Medicine 08/26/13 09/07/14 Keven Puga DO [address] [place] [address] [place] [address] 21 [place] [address] PCP - General Internal Medicine 09/08/14 09/11/16 Keven Puga DO [address] [place] [address] [place] [address] PCP - General Internal Medicine 09/12/16 01/19/20 Lloyd Grover PA-C [address] [place] [address] [address] [place] [address] PCP - General Physician Preschool Principal 01/20/20 08/02/20 Carla Hu MD [address] [place] [address] 20 [place] [address] PCP - General 08/03/20 09/27/22 Keven Puga DO [address] [place] [address] [address] [address] PCP - General Internal Medicine 09/28/22 Lloyd Grover PA-C [address] [facility] [address] [place] [address] Physician Preschool Principal 09/28/22 [place] [address] [address] Obstetrics and Gynecology 09/28/22 documented as of this encounter
--- OUTSIDE RECORDS SUMMARY | 2024-06-20 07:32 | XMS_ITS | Encounter Summary ---
Author Organization [facility] Care Team Providers Care Retention Representative Name Role Phone No, Physician Primary Care Provider [phone] Lloyd Grover Primary Care Provider Encounter Details Date Type Department Care Team (Latest Contact Info) Description 05/13/2018 Orders Only [facility]IN[facility] ProviderNatasha MD [address] [place] [address] Social History Tobacco Use Types Packs/Day Years Used Date Smoking Tobacco: Never Assessed Comments Unknown Sex and Gender Information Value Date Recorded Sex Assigned at Not on file Legal Sex Female 8:35 AM DRUM SANDER SETTER Gender Identity Not on file Sexual Orientation Not on file documented as of this encounter Plan of Treatment Not on file documented as of this encounter Procedures Procedure Name Priority Date/Time Associated Diagnosis Comments PROCEDURE - RESULT 05/13/2018 12 :00 AM DRUM SANDER SETTER documented in this encounter Results * PROCEDURE - RESULT (05/13/2018 12:00 AM DRUM SANDER SETTER) Narrative 05/13/2018 12:00 AM DRUM SANDER SETTER Ordered by an unspecified provider. Historical Provider Final Res ult documented in this encounter Visit Diagnoses Not on filedocumented in this encounter Care Teams Retention Representative Relationship Specialty Start Date End Date No, Physician PCP - General 05/20/23 07/08/23 Lloyd Grover PA [address] [place] [address] PCP - General Physician Mine Production Engineer 07/09/23 documented as of this encounter
--- OUTSIDE RECORDS SUMMARY | 2024-06-20 07:32 | XMS_ITS | Continuity of Care Document ---
Author Organization [facility] Address [address] [place] [address] [place] [address] Phone Care Team Providers Care Insole Taper Name Role Phone Ryan Villanueva Unavailable Unavailable [...] Diagnoses Date Provider Providers Copied on Encounter [facility], [address] [place] [address] [address], [place], [place], [address], [place] tel:[phone] [facility] No Information 0 Kay Davis. Keisha [facility] [address], [place], [address], [place]. tel:[phone] Referring Provider: Keisha Valera [facility] [address], [place], [address]. tel:[phone] [facility], [address] [place] [address] [address], [place], [place], [address], [place] tel:[phone] [facility] No Information Alexander-0 3-201 0 Payton OD Gerber. [facility] [address] , [address], [place], [address], [place]. tel:[phone] [facility], [address], [place], [place], [address], [place] tel:[phone] [facility] No Information Alexander-0 3-201 0 [facility] . [address] [facility], [address], [place], [place], [address], [place]. tel:[phone] Referring Provider: Gerber Tobias, [address] [place], [place] [address], [place], [address]. tel:[phone] sulting Provider: Gena Phoenix, [address] [place] [address], [facility]. tel:[phone] [facility], [address] [place] [address] [address], [place], [place], [address], [place] tel:[phone] [facility] No Information May-0 7-201 0 [facility] . [address] [facility], [address], [place], [place], [address], [place]. tel:[phone] Referring Provider: Ryan Tobias, [address] [place], [place] [address], [place], [address]. tel:[phone] sulting Provider: Gena Phoenix, [address] [place] [address], [address]. tel:[phone] [facility], [address], [place], [place], [address], [place] tel:[phone] [facility] No Information Apr-0 5-201 0 Kay Davis. [address] [place], [place] [address]ate [address], [address], [place], [address], [place]. tel:[phone] [facility], [address], [place], [place], [address], [place] tel:[phone] [facility] No Information 200 9 Kay Davis. [address], [address], [place], [place], [facility], . tel:[phone] Referring Provider: Ryan Tobias, [facility] Corporate [address], [place], [place], [facility]. tel:[phone] [facility], [address], [place], [place], [address], tel:[phone] [facility] No Information 8200 9 Kay Davis. [facility] [address], [address], [place], [facility], . tel:[phone] [facility], [address], [place], [place], [address], tel:[phone] [facility] No Information 5200 7 Payton OD Gerber. [facility] [address], [address], [place], [place], [facility], . tel:[phone] Office/outpat ient Visit, Est [facility], [address] [place] [address] [address], [place], [place], [address], tel:[phone] [facility] No Information 4[address] 7 Kay Davis. [address] [place], [place] [address]ate [address], [address], [place], [place], [facility], . tel:[phone] Family History Family Member Type Diagnosis Age At Onset No Information Payers Payer name Insurance type Covered constitution party ID Authoriza tion(s) No Information Social [...]
--- OUTSIDE RECORDS SUMMARY | 2024-06-20 07:32 | XMS_ITS | Clinical Summary ---
Author Organization [facility] Address [address] [place] [address] Care Team Providers Care Slash Trimmer Name Role Phone Lloyd Grover Primary Care [...] by mouth 2 (two) times a day 4 Active carvediloL (COREG) 3.125 mg tabletIndicatio ns:Hypertension , unspecified type Take 1 tablet (3.125 mg total) by mouth 2 (two) times a day with meals 180 tablet 1 04/13/19 Active Active Problems Problem Noted Date Diagnosed Date Hypertension 07/12/2023 Hyperlipidemia 07/12/2023 Allergic rhinitis due to pollen 06/09/2001 Encounters Date Type Department Care Team Description 04/10/2024 Telephone [facility] Cardiology [address] [place] [phone] Dolly Chan NP 03/30/2024 8:00 AM PIPE CHANGER Office Visit [facility] Cardiology [address] [place] [address] Dolly Chan NP Hypertension, unspecified type (Primary Dx); Dizziness; Hyperlipidemia, unspecified hyperlipidemia type from Last 3 Months Immunizations Immunization Administration Dates Next Due Pfizer Sars-Cov-2 Bivalent [...] on file Legal Sex Female 8:35 AM PIPE CHANGER Gender Identity Not on file Sexual Orientation Not on file Obstetrics History Last Filed Vital Signs Vital Sign Reading Time Taken Comments Blood Pressure 114/68 03/30/2024 7:58 AM PIPE CHANGER Pulse 94 03/30/2024 7:58 AM PIPE CHANGER Temperature - - Respiratory Rate - - Oxygen Saturation 99% 03/30/2024 7:58 AM PIPE CHANGER Inhaled Oxygen Concentration - - Weight 88.9 kg (196 lb) 03/30/2024 7:58 AM PIPE CHANGER Height 167.6 cm (5' 6 ) 03/30/2024 7:58 AM PIPE CHANGER Body Mass Index 31.64 03/30/2024 7:58 AM PIPE CHANGER Plan of Treatment Health Maintenance Due Date Last Done Comments Depression Screening 1945 Fall Risk Assessment 1945 Hepatitis C Screening 1945 Osteoporosis Screening-Bone Density Scan 1945 Hepatitis B Screening 1964 Well Visit 65+ 05/24/2011 Covid-19 Vaccine (6 - 2023-2 5 season) 2023 02/01/2022, 10/24/2021, 01/25/2021, Additional history exists Influenza Vaccine (Season Ended) 2024 01/15/2022, 12/26/2020, 12/18/2019, Additional history exists DTaP/Tdap/Td Vaccine [...] Laterality Modality Vascular Bilateral Ultrasound Dolly Chan OBSTETRICIAN GYNECOLOGIST IMG US PROCEDURES Final R esult from Last 3 Months Insurance [facility] MEDICARE ADVANTAGE Care Teams Slash Trimmer Relationship Specialty Start Date End Date Lloyd Grover PA [address] [facility] [address] [place] [address] PCP - General Physician Big Data Engineer 07/09/23
--- OUTSIDE RECORDS SUMMARY | 2024-06-20 07:32 | XMS_ITS | Encounter Summary ---
Author Organization [facility] Facility Care Team Providers Care Transformation Coach Name Role Phone No, Physician Primary Care Provider [phone] Lloyd Grover Primary Care Provider Encounter Details Date Type Department Care Team (Latest Contact Info) Description 05/27/2018 Orders Only [facility] CLINCONV Provider, MD Natasha [address] [place] [id number] Social History Tobacco Use Types Packs/Day Years Used Date Smoking Tobacco: Never Assessed Comments Unknown Sex and Gender Information Value Date Recorded Sex Assigned at Not on file Legal Sex Female 8:35 AM SENIOR INTEGRATION ARCHITECT Gender Identity Not on file Sexual Orientation [...] on filedocumented in this encounter Care Teams Transformation Coach Relationship Specialty Start Date End Date No, Physician PCP - General 05/20/23 07/08/23 Lloyd Grover PA [address] [place] [address] PCP - General Physician Dedicated Owner Operator 07/09/23 documented as of this encounter
--- OUTSIDE RECORDS SUMMARY | 2024-06-20 07:32 | XMS_ITS | Referral Summary ---
Author Organization [facility] Address [address] [place] [address] Care Team Providers Care Firm Administrator Name Role Phone Lloyd Grover Primary Care Provider Encounters Date Type Department Care Team Description 04/10/2024 Telephone [facility] Medical [facility] Cardiology [address] [place] [address] Dolly Chan NP 03/30/2024 8:00 AM SOFTWARE DEVELOPMENT MANAGER Office Visit [facility] Cardiology [address] [place] [address] Dolly Chan NP Hypertension, unspecified [...] mouth 2 (two) times a day Active carvediloL (COREG) 3.125 mg tabletIndicatio ns:Hypertension , unspecified type Take 1 tablet (3.125 mg total) by mouth 2 (two) times a day with meals 180 tablet 1 5 04/13/19 Active Active Problems Problem Noted Date Diagnosed Date Hypertension 07/12/2023 Hyperlipidemia 07/12/2023 Allergic rhinitis due to pollen 06/09/2001 Immunizations Immunization Administration Dates Next Due Pfizer Sars-Cov-2 Bivalent Vaccination (12+ YRS) 02/01/2022 Social [...] on file Legal Sex Female 8:35 AM SOFTWARE DEVELOPMENT MANAGER Gender Identity Not on file Sexual Orientation Not on file Last Filed Vital Signs Vital Sign Reading Time Taken Comments Blood Pressure 114/68 03/30/2024 7:58 AM SOFTWARE DEVELOPMENT MANAGER Pulse 94 03/30/2024 7:58 AM SOFTWARE DEVELOPMENT MANAGER Temperature - - Respiratory Rate - - Oxygen Saturation 99% 03/30/2024 7:58 AM SOFTWARE DEVELOPMENT MANAGER Inhaled Oxygen Concentration - - Weight 88.9 kg (196 lb) 03/30/2024 7:58 AM SOFTWARE DEVELOPMENT MANAGER Height 167.6 cm (5' 6 ) 03/30/2024 7:58 AM SOFTWARE DEVELOPMENT MANAGER Body Mass Index 31.64 03/30/2024 7:58 AM SOFTWARE DEVELOPMENT MANAGER Plan of Treatment Not on file Procedures Procedure Name Priority Date/Time Associated Diagnosis Comments US CAROTIDS DUPLEX BILATERAL Routine 03/30/2024 Dizziness Hyperlipidemia, unspecified hyperlipidemia type from Last 3 Months Results * US Carotids Duplex Bilateral (03/30/2024) Anatomical Region Laterality Modality Vascular Bilateral Ultrasound us Dolly Chan NP IMG US PROCEDURES Final R esult from Last 3 Months Insurance [employer] MEDICARE ADVANTAGE Care Teams Firm Administrator Relationship Specialty Start Date End Date Lloyd Grover PA [address] [place] [address] PCP - General Physician Filling And Packing Supervisor 07/09/23
--- OUTSIDE RECORDS SUMMARY | 2024-06-20 07:32 | XMS_ITS | Clinical Summary ---
Author Organization [facility] Address [address] [facility] [place] [address] Care Team Providers Care Civil Laboratory Technician Name Role Phone Venkata Pugareyes Corrales DO Primary Care Provider [phone] Lloyd Grover PA-C Unavailable [phone] Priti Murray DO Unavailable Source Comments [facility],non-owned Affiliates and Associated Physician Practices is amultiple site organization consisting of ambulatory clinics and hospital sitesin [place], [place], [place] and [place]. This disclosure is being madepursuant to the Care Everywhere program and may not contain all information available regarding this patient. Last updated 17.[facility] Allergies Active Allergy Reactions Criticality Noted [...] PO Take by mouth once daily Active Nfvzcbq-Rrzf-Ccd D-Vit K [id number] MG-UNT-MCG CHEW Take by mouth 3 times daily Active omeprazole (PRILOSEC) 40 MG capsule Take 1 (one) capsule by mouth every evening Active azelastine (Astelin) 0.1 % nasal spray SPRAY 2 SPRAYS INTO EACH NOSTRIL TWICE A DAY FOR 30 DAYS 02/12/2022 Active levocetirizine (Xyzal Allergy 24HR) 5 MG tablet Active losartan (Cozaar) 25 MG tablet Take 2 (two) tablets by mouth 2 times daily 08/14/2022 Active azelastine-flutica sone (Dymista) 137-50 MCG/ACT nasal spray SPRAY 1 SPRAY IN EACH NOSTRIL ONCE DAILY Active betamethasone dipropionate augmented (Diprolene Af) 0.05 % cream RUB IN WELL TWICE A DAY TO INVOLVED AREAS UNTIL CLEAR 12/19/2023 Active carvedilol (Coreg) 3.125 MG tablet TAKE 1 TABLET BY MOUTH TWICE A DAY WITH MEALS. STOP HYDRALAZINE Active Ascorbic Acid (VITAMIN C PO) Take 500 mg by mouth once daily 06/10/2024 Discontinue d(List Clean-Up) loratadine (CLARITIN) 10 MG tablet Take 10 mg by mouth once daily 06/10/2024 Discontinue d(List Clean-Up) Active Problems Problem Noted Date Diagnosed Date Fibroids, submucosal 12/16/2019 PMB (postmenopausal bleeding) 05/21/2019 Intra-abdominal and pelvic s welling, mass and lump, unspecified site 05/21/2019 Intramural leiomyoma of uterus 10/01/2017 Screening for cervical cancer 03/12/2011 Overview (03/12/2011): Pap/pelvic 05/2010 NL done by ANIMAL PARK CODE ENFORCEMENT OFFICER Other screening mammogram 03/12/2011 Overview (03/12/2011): mammo done 02/2011 result pending Screening for colon cancer 03/12/2011 Overview (03/12/2011): colonoscopy 10/2003 neg, due in 3 yrs Constipation 03/12/2011 OA (osteoarthritis) 03/12/2011 Screening for osteoporosis 03/06/2011 Overview (03/12/2011): dexa 2010 - pt told NL HLD (hyperlipidemia) 06/13/2009 [...] and tingling of left leg 04/15/2011 06/10/2011 Encounters Date Type Department Care Team Description 06/10/2024 10:15 AM CDT Office Visit [facility] Medical [facility] - BUFFER OPERATOR [address] [place] [id number] Priti Murray, DO Well woman exam with routine gynecological exam (Primary Dx) 06/10/2024 Travel from Last 3 Months Immunizations Name Administration Dates Next Due INFLUENZA A [id number] VACCINE 02/15/2009 INFLUENZA VACCINE 03/01/2011 Family History [...] Tobacco: Never Tobacco Cessation:Counseling Given: Not Answered Alcohol Use Standard Drinks/Week Comments Yes 0 [...] Sign Reading Time Taken Comments Blood Pressure 130/80 06/10/2024 10:35 AM CDT Pulse 72 06/28/2020 12:51 PM CDT Temperature 36.7 C (98.1 F) 01/21/2020 9:06 AM BOBBIN HAULER Respiratory Rate 18 01/21/2020 9:06 AM BOBBIN HAULER Oxygen Saturation 99% 02/23/2020 2:04 PM BOBBIN HAULER Inhaled Oxygen Concentration - - Weight 88.4 kg (194 lb 12.8 oz) 025 10:35 AM CDT Height 167.6 cm (5' 6 ) 06/10/2024 10:3 5 AM CDT Body Mass Index 31.44 06/10/2024 10:35 AM CDT Plan of Treatment Health Maintenance Due Date Last Done Comments HEPATITIS C SCREENING 05/18/1963 DTAP/TDAP/TD VACCINES (1 - Tdap) 1965 PNEUMOCOCCAL VACCINE 50+ (1 of 1 - PCV) 1996 ZOSTER VACCINE (1 of 2) 1996 Respiratory Syncytial Virus (RSV) Vaccine Pt: or over 60 yrs (1 - 1-dose 75+ series) 2021 COVID-19 VACCINE ( season) 2023 02/01/2022, 01/25/2021, 05/17/2020, Additional history exists DEPRESSION SCREENING 03/18/2024 09/28/2022 MEDICARE AWV CALENDAR YEAR 2024 INFLUENZA VACCINE (Season Ended) 2024 12/26/2020, 12/18/2019, 11/24/2018, Additional history exists BONE DENSITY TESTING Completed 03/07/2009 HEPATITIS B VACCINE Aged Out No longe r eligible based on patient's age to complete this topic HIB VACCINE Aged Out No longer eligi ble based on patient's age to complete this topic HPV VACCINE Aged Out No longer eligi ble based on patient's age to complete this topic MENINGOCOCCAL (Group B) VACCINE SHARED DECISION-MAKING Aged Out No longer eligible based on patient's age to complete this topic MENINGOCOCCAL GROUPS A/C/Y/W VACCINE Aged Out No longer eligible based [...] Documents on File Type Date Recorded Patient Verification Lead Expl anation Adv Directive/Living Will/POA 01/25/2020 11:38 PM Adv Directive/Living Will/POA 04/12/2008 Care Teams Civil Laboratory Technician Relationship Specialty Start Date End Date Keven Puga DO [address] [facility] [address] [place] [address] PCP - General Internal Medicine 09/28/22 Lloyd Grover PA-C [address] [facility] [address] [place] [address] Physician Fire Alarm Technician 09/28/22 [place] [address] [facility] [address] [place] [address] Obstetrics and Gynecology 09/28/22
--- OUTSIDE RECORDS SUMMARY | 2024-06-20 07:32 | XMS_ITS | Continuity of Care Document ---
Author Organization [facility] Address [address] [place] [address] Phone Care Team Providers Care Switch Tender Name Role Phone Aden Laguerre DO Unavailable [...] Diagnoses Date Provider Providers Copied on Encounter [facility], [address], [place], [place], [address] , tel: [phone] Carlotta No Information Carlotta Samaniego. [address], [place], [place], [address] , [place]. tel: [phone] [facility], [address], [place], [place], [address] , tel: [phone] Laguerre ACUTE SINUSITIS NOSDYSFUNCT EUSTACHIAN TUBE 8 Mercedes Meredith. [address], [place], [place], [address] . tel: [phone] [facility], [address], [place], [place], [address] , [place] tel: [phone] Laguerre TMJ DISORDERS NOSLONG-TERM USE MEDS [facility] 9-200 7 Mercedes Meredith. [address], [place], [place], [address] . tel: [phone] [facility], [address], [place], [place], [address] , tel: [phone] Laguerre OSTEOPOROSIS NOSVAGINITIS NOSBENIGN NEOPLASM NEC 200 7 Carlotta Samaniego. [address] [facility], [place], [place], [address] , [place]. tel: [phone] [facility], [address], [place], [place], [address] , [place] tel:[phone] Laguerre RHINITIS DUE TO POLLEN 7 Carlotta Samaniego. [address] [facility], [place], [place], [address] , [place]. tel: [phone] [facility], [address], [place], [place], [address] , [place] tel:[phone] Laguerre JOINT PAIN-HAND 6 Long Viri. [address] [facility], [place], [place], [address] . tel: [phone] [facility], [address], [place], [place], [address] , [place] tel:[phone] Laguerre FINGER INJURY NOS 6 Laguerrelarry Samaniego. [address] [facility], [place], [place], [address] , [place]. tel: [phone] [facility], [address], [place], [place], [address] , [place] tel:[phone] Laguerre SYNOV/TEND/BURSA DIS NECSEBACEOUS CYST 1200 6 Laguerrelarry Samaniego. [address] [facility], [place], [place], [address] , [place]. tel: [phone] [facility], [address], [place], [place], [address] , [place] tel:[phone] Laguerre DEPRESSIVE DISORDER NECMIXED HYPERLIPIDEMIAOTH SPECFD VIRAL WARTSHEARING LOSS NOS 8-200 5 Laguerrelarry Samaniego. [address] [facility], [place], [place], [address] , [place]. tel: [phone] [facility], [address], [place], [place], [address] , [place] tel: [phone] Laguerre ANXIETY STATE NOSOTH R [facility] M[facility]N 0-200 5 Carlotta Aden. [address] [facility] [address], [place], [place], [address] , [place]. tel: [phone] [facility], [address], [place], [place], [address] , [place] tel: [phone] Laguerre ACUTE NASOPHARYNGITISACUTE BRONCHITIS 4-200 4 Long Viri. [address] [facility] [address], [place], [place], [address] . tel: [phone] [facility], [address], [place], [place], [address] , [place] tel:[phone] Laguerre MALAISE AND FATIGUE NEC 0-200 4 Long Viri. [address] [facility] [address], [place], [place], [address] . tel: [phone] [facility], [address], [place], [place], [address] , [place] tel: [phone] Laguerre JOINT PAIN-L/LEG Nov- 9200 3 Long Vir[address]. [address] [facility] [address], [place], [place], [address] . tel: [phone] [facility], [address], [place], [place], [address] , [place] tel: [phone] Laguerre JOINT PAIN-FOREARM 9200 3 [address]. [address] [facility] [address], [place], [place], [address] . tel: [phone] [facility], [address], [place], [place], [address] , [place] tel: [phone] Laguerre SYMPT FEM CLIMACT STATE Sep-0 4200 2 [address]. [address] [facility] [address], [place], [place], [address] . tel: [phone] [facility], [address], [place], [place], [address] , [place] tel: [phone] Laguerre BREAST DISORDER NOS Feb-2 3-200 1 Long Viri. [address] [facility], [place], [place], [address] . tel: [phone] [facility], [address], [place], [place], [address] , tel: [phone] Laguerre SYNOVITIS NOS 6-200 0 Laguerre Aden. [address] [facility], [place], [place], [address] , . tel: [phone] [facility], [address], [place], [place], [address] , tel: [phone] Laguerre SPRAIN SHOULDER/ARM NEC 2-200 0 Long Viri. [address] [facility], [place], [place], [address] . tel: [phone] [facility], [address], [place], [place], [address] , tel: [phone] Laguerre PREMENOPAUSE MENORRHAGIAFLUSHING 9-199 9 Long Viri. [address] [facility], [place], [place], [address] . tel: [phone] [facility] [address], [place], [place], [address] , tel: [phone] Laguerre NEVUS, NON-NEOPLASTICSKIN HYPERTRO/ATROPH NOS 7-199 9 Long Viri. [facility] [place], [place], [address] . tel: [phone] Family History Family Member Type Diagnosis Age [...]
== END 2024-06-20 07:29 | disposition home or self-care (01) ==
LOC: ANHIMG 07:31
PROVIDERS: PCP Internal Medicine; Visit Provider Internal Medicine
DX: Z12.31 Encounter for screening mammogram for malignant neoplasm of breast (principal)
CPT/HCPCS: 77063; 77067

== ENCOUNTER 2024-08-18 07:08 | Outpatient (CLI) | payer MEDICARE, SELFPAY ==
--- OUTSIDE RECORDS SUMMARY | 2024-08-18 07:14 | XMS_ITS | Encounter Summary ---
Author Organization [facility] Address [address] [place] [address] Care Team Providers Care Earth Science Professor Name Role Phone Carla Hu MD Primary Care Provider [phone]- [phone] Keven Puga DO Primary Care Provider [phone] Lloyd Grvoer PA-C Unavailable [phone]- [phone] Priti Murray DO Unavailable Encounter Details Date Type Department Care Team (Late st Contact Info) Description 08/04/2020 Lab Requisition [facility] Care DermPath Lab [address] [facility] [place] [id number] Alonso Martinez MD [address] [place] [address] Social History Tobacco Use Types [...] more drinks on one occasion? Never 01/21/2020 Comments No Sex and Gender Information Value Date Recorded Sex Assigned at Not on file Legal Sex Female 6:45 AM CHUCK BONER Gender Identity Not on file Sexual Orientation Not on file documented as of this encounter Functional Status * Is person deaf or have serious hearing difficulty? Answer Date of Assessment Author No 01/21/2020 8:28 AM Marcia Tan i, RN * Is person blind or have serious difficulty seeing? Answer Date of Assessment Author No 01/21/2020 8:28 AM Marcia Tan i, RN * Does person have serious difficulty walking/climbing stairs? Answer Date of Assessment Author No 01/21/2020 8:28 AM Marcia Tan i, RN * Does person have difficulty dressing/bathing? Answer Date of Assessment Author No 01/21/2020 8:28 AM Marcia Tan i, RN * Does person have difficulty doing errands alone? Answer Date of Assessment Author No 01/21/2020 8:28 AM Marcia Tan i, RN documented as of this encounter Mental Status * Does person have difficulty concentrating/remembering/making decisions? Answer Entry Date Author No 01/21/2020 8:28 AM Marcia Tan i, RN documented in this encounter Plan of Treatment Not on file documented as of this encounter Procedures Procedure Name Priority Date/Time Associated Diagnosis Comments DERMATOPATHOLOGY Routine 08/03/2020 3:33 AM CDT documented in this encounter Results * DERMATOPATHOLOGY (08/03/2020 3:33 AM CDT) Case Report Dermatopathology Report Case: [id number] Authorizing Provider: Alonso Martinez MD Collected: 08/03/2020 03:33 AM Ordering Location: [facility] DermPath Lab Received: 08/04/2020 07:59 AM Pathologist: Domi Torres MD Specimen: Skin, right mid back 1 4:15 PM CDT DERMATOPATHOLOGY LABORATORY Final Diagnosis Specimen A. SKIN, right mid back: NEUROFIBROMA (D36.10) 1 4:15 PM CDT DERMATOPATHOLOGY LABORATORY at 1615 CDT Clinical History R/O neoplasia. 1 4:15 PM CDT DERMATOPATHOLOGY LABORATORY Gross Description Specimen A: Received is one formalin filled container labeled with the patient's name and designated right mid back. The specimen consists of a shave biopsy measuring [id number]. Jar 0. 1 4:15 PM [facility] DERMATOPATHOLOGY LABORATORY Microscopic Description Specimen A. SKIN, [...] characteristic determined by the Dermatopathology Laboratory at [facility], directed by Dr. Feli Tate. These tests need not be, and therefore are not, approved by the [place] Food and Drug Administration. The tests are used for clinical purposes. Billing Codes Specimen Charges Stain Charges 50561 1 1 4:15 PM CDT DERMATOPATHOLOGY LABORATORY Embedded Images 1 4:15 PM T DERMATOPATHOLOGY LABORATORY Pathology/Cytolo gy TISSUE SPECIMEN FROM SKIN / Unknown 08/03/2020 3:33 AM CDT 08/04/2020 7:59 AM CDT Alonso Martinez MD LAB - PATHOLOGY/CYTOLOGY ORDERAB LES Final Result DERMATOPATHOLOGY LABORATORY [facility] - Department of Dermatology [facility] Medicine [address] [place] [address], [address] [phone] documented in this encounter Visit Diagnoses Not on filedocumented in this encounter Care Teams Earth Science Professor Relationship Specialty Start Date End Date Carla Hu MD [address] [facility] [address] [place] [phone] PCP - General 08/03/20 09/27/22 Keven Puga DO [address] [place] [address] PCP - General Internal Medicine 09/28/22 Lloyd Grover PA-C [address] [place] [address] Physician Photoengraving Printer 09/28/22 [place] [address] [facility] [address] [place] [address] Obstetrics and Gynecology 09/28/22 documented as of this encounter
--- OUTSIDE RECORDS SUMMARY | 2024-08-18 07:14 | XMS_ITS | Encounter Summary ---
Author Organization [facility] Address [address] [facility] [place] [address] Care Team Providers Care Christmas Tree Grader Name Role Phone Carla Hu MD Primary Care Provider [phone]- [phone] Keven Puga DO Primary Care Provider [phone] Keven Puga DO Primary Care Provider [phone]- [phone] Lloyd Grover PA-C Primary Care Provide r Carla Hu MD Primary Care Provider + [phone] Keven Puga DO Primary Care Provider [phone] Lloyd Grover PA-C Unavailable [phone]- [phone] Priti Murray DO Unavailable Encounter Details Date Type Department Care Team (Late st Contact Info) Description 08/26/2013 SS Outpatient Visit EXTERNAL [place] [address] [facility] [address] [place] [address] Social History Tobacco Use Types Packs/Day Years Used Date Smoking Tobacco: Never Smokeless Tobacco: Never Alcohol Use Standard Drinks/Week Comments Yes 0 (1 standard drink = 0.6 oz pur e alcohol) 3-4 drinks yearly Comments No Sex and Gender Information Value Date Recorded Sex Assigned at Not on file Legal Sex Female 6:45 AM TOOL DIE MAKER Gender Identity Not on file Sexual Orientation Not on file documented as of this encounter Plan of Treatment Not on file documented as of this encounter Visit Diagnoses Not on filedocumented in this encounter Care Teams Christmas Tree Grader Relationship Specialty Start Date End Date Carla Hu MD PCP - General Adolescent Medicine 08/26/13 09/07/14 Keven Puga DO [address] [place] [address] [address] [place] [address] PCP - General Internal Medicine 09/08/14 09/11/16 Keven Puga DO [address] [place] [address] [address] [place] [address] PCP - General Internal Medicine 09/12/16 01/19/20 Lloyd Grover PA-C [address] [place], [place] [id number] PCP - General Physician Assistant Associate Professor 01/20/20 08/02/20 Crala Hu MD [address] [place] [id number] PCP - General 08/03/20 09/27/22 Keven Puga DO [address] [place] [id number] PCP - General Internal Medicine 09/28/22 Lloyd Grover PA-C [address] [place] [address] Physician Assistant Associate Professor 09/28/22 [place] [address] [address] [id number] Obstetrics and Gynecology 09/28/22 documented as of this encounter
--- OUTSIDE RECORDS SUMMARY | 2024-08-18 07:14 | XMS_ITS | Referral Summary ---
Author Organization [facility] Address [address] [place] [address] Care Team Providers Care Advertising Coordinator Name Role Phone Hussain Mcgarry DO Primary Care Provider [phone] Encounters Date Type Department Care Team Description 07/23/2024 Telephone [facility] Cardiology [address] [facility] 8th [place] [address] [place] [address] Delgado Bertha 07/17/2024 8:45 AM CDT Office Visit [facility] Cardiology [address] [place] [address] José Luis Cleary MD Primary hypertension (Primary Dx); Mixed hyperlipidemia from Last 3 Months Allergies Active Allergy [...] on file Legal Sex Female 8:35 AM SCRUMMASTER Gender Identity Not on file Sexual Orientation Not on file Last Filed Vital Signs Vital Sign Reading Time Taken Comments Blood Pressure 142/70 07/17/2024 8:50 AM CDT Pulse 77 07/17/2024 8:50 AM CDT Temperature - - Respiratory Rate - - Oxygen Saturation 98% 07/17/2024 8:50 AM CDT Inhaled Oxygen Concentration - - Weight 88.5 kg (195 lb) 07/17/2024 8:50 AM CDT Height 167.6 cm (5' 6) 07/17/2024 8:50 AM CDT Body Mass Index 31.47 07/17/2024 8:50 AM CDT Plan of Treatment Not on file Insurance [address] [facility] MEDICARE ADVANTAGE Member Subscriber Plan / Payer (Ef fective 2024-Present) Name:Cara Rivers Relation to Subscriber:Self Name:Cara Rivers Payer ID:[id number] (NAIC) Type:[facility] MEDICARE Address: [address] [phone] Care Teams Advertising Coordinator Relationship Specialty Start Date End Date Hussain Mcgarry DO [address] [place] [address] PCP - General Internal Medicine 07/17/24
--- OUTSIDE RECORDS SUMMARY | 2024-08-18 07:14 | XMS_ITS | Encounter Summary ---
Author Organization [facility] Address [address] [place] [address] Phone Care Team Providers Care Plaster Form Maker Name Role Phone Hussain Mcgarry Primary Care Provider [phone] Encounter Details Date Type Department Care Team (Late st Contact Info) Description 07/23/2024 Telephone [facility] Cardiology [address] [facility] 8th [place] [address] [place] [address] Bertha Delgado Social History Tobacco Use Types Packs/Day Years Used Date Smoking Tobacco: Never Smokeless Tobacco: Never AUDIT-C Answer Date Recorded Q1: How often [...] on file Legal Sex Female 8:35 AM CAFETERIA HELPER Gender Identity Not on file Sexual Orientation Not on file documented as of this encounter Miscellaneous Notes * Telephone Encounter - Irene Acosta - 07/23/2024 4:35 PM CDT José Luis Cleary MD on [employer]. EKG in Epic. * Telephone Encounter - Bertha Delgado - 07/23/2024 4:18 PM CDT Diagnosis/Reason for Appointment: Hypertension Transferring cardiac care Referring Physician: self Ref Ph: If Referring MD is not PCP, list specialty: Triage Questions Yes No Who/Where/When/Notes Are you actively undergoing cancer treatments including radiation, chemotherapy, or immunotherapy or are these planned in the near future? [] [x] If 'Yes', Schedule first available with Cardio-Oncology If yes where are you being treated? Have you ever seen a Director Of Education And Training in an office setting? [x] [] Dr. José Luis Cleary [facility] IF SCHEDULING PATIENT WITH MATERNAL Have you had a baby in the last year or are you ? (If yes send to Dr. Avelar for review) [] [] Have you had heart or blood pressure problems during a previous ? (If yes send to Dr. Avelar for review) [] [] Dr. Bertha Vizcarra Patients only: Are you a hemodialysis or peritoneal dialysis patient? (If yes then patient must be referred from another MD, DO NOT SCHEDULE) [] [] Do you regularly exercise, or play any competitive or recreational sports? (If yes proceed to next question) [] [x] Are your symptoms or concerns associated with this exercise or activity? (If yes schedule in [facility]) [] [] Patient History Questions Yes No Where/When/Notes Have you EVER been hospitalized for ANY cardiac issue? [] [x] Have you ever had any cardiac testing, imaging, or procedures? (Testing - echo, EKG, stress) (Imaging - Cardiac MRI, CT or calcium scoring) (Procedure - Ablation, Cardioversion, CABG, Cath) [x] [] EKG 07/09 In [place] [facility] Have you ever had a sleep study? [] [x] Do you have a device? If yes what type? (Pacemaker, Defibrillator, Implanted Loop Recorder) [] [x] If yes, where and when was device put in? Talent Acquisition Project Manager? ([employer], [employer], [place]) Appointment Date: 09/24/23 Provider: OMAR Location: [facility] [x] Confirm appt date, time, provider and location. [x] Advise pt to arrive 15- 20 min early. [x] Advise patient to bring medications/list, photo ID and insurance card [x] Advise of New PatientPacket being mailed to them. documented in this encounter Plan of Treatment Not on file documented as of this encounter Visit Diagnoses Not on filedocumented in this encounter Care Teams Plaster Form Maker Relationship Specialty Start Date End Date Hussain Mcgarry DO [address] [id number] PCP - General Internal Medicine 07/17/24 documented as of this encounter
--- OUTSIDE RECORDS SUMMARY | 2024-08-18 07:14 | XMS_ITS | Clinical Summary ---
Author Organization [facility] Address [address] [facility] [place] [address] Care Team Providers Care Belling Machine Operator Name Role Phone Keven Puga Savanna DO Primary Care Provider [phone] Lloyd Grover PA-C Unavailable [phone] Priti Murray DO Unavailable Source Comments [facility],non-owned Affiliates and Associated Physician Practices is amultiple site organization consisting of ambulatory clinics and hospital sitesin [place], [place], [place] and [place]. This disclosure is being madepursuant to the Care Everywhere program and may not contain all information available regarding this patient. Last updated 17.[facility] Allergies Active Allergy Reactions Criticality Noted Date Comments Estrogens Rash Low 04/12/2008 Rash, sores on her breasts and muscle aches. Medroxyprogesterone Acetate Rash Medium 05/12/19 08 Ibuprofen Nausea and/or Vomiting 06/28/2020 Relafen 04/12/2008 Causes elevated blood pressure. Sulfa Drugs Swelling 04/12/2008 Medications * Be aware that medications may not be up to date on this document. Alwaysverify current medications with the patient. MULTIVITAMIN PO Take by mouth once daily Active Lquhtns-Qori-Ndv D-Vit K [id number] MG-UNT-MCG CHEW Take by mouth 3 times daily Active omeprazole (PRILOSEC) 40 MG capsule Take 1 (one) capsule by mouth every evening Active azelastine (Astelin) 0.1 % nasal spray SPRAY 2 SPRAYS INTO EACH NOSTRIL TWICE A DAY FOR 30 DAYS 2 Active levocetirizine (Xyzal Allergy 24HR) 5 MG tablet Active losartan (Cozaar) 25 MG tablet Take 2 (two) tablets by mouth 2 times daily 3 Active azelastine-fluti casone (Dymista) 137-50 MCG/ACT nasal spray SPRAY 1 SPRAY IN EACH NOSTRIL ONCE DAILY Active betamethasone dipropionate augmented (Diprolene Af) 0.05 % cream RUB IN WELL TWICE A DAY TO INVOLVED AREAS UNTIL CLEAR 4 Active carvedilol (Coreg) 3.125 MG tablet TAKE 1 TABLET BY MOUTH TWICE A DAY WITH MEALS. STOP HYDRALAZINE Active Active Problems Problem Noted Date Diagnosed Date Fibroids, submucosal 12/16/2019 PMB (postmenopausal bleeding) 05/21/2019 Intra-abdominal and pelvic s welling, mass and lump, unspecified site 05/21/2019 Intramural leiomyoma of uterus 10/01/2017 Screening for cervical cancer 03/12/2011 Overview (03/12/2011): Pap/pelvic 05/2010 NL done by BIT TRIPOLER Other screening mammogram 03/12/2011 Overview (03/12/2011): mammo [...] Description 06/10/2024 10:15 AM CDT Office Visit [facility] - [employer]IC[employer] [address] [id number] Priti Murray, DO Well woman exam with routine gynecological exam (Primary Dx) 06/10/2024 Travel from Last 3 Months Immunizations Immunization Administration Dates Next Due INFLUENZA A G1S9-22 VACCINE 02/15/2009 INFLUENZA VACCINE 03/01/2011 Family History [...] Date Recorded PHQ2 TOTAL SCORE 0 09/24/2022 Comments No Sex and Gender Information Value Date Recorded Sex Assigned at Not on file Legal Sex Female 6:45 AM COMMERCIAL ANALYST Gender Identity Not on file Sexual Orientation Not on file Last Filed Vital Signs Vital Sign Reading Time Taken Comments Blood Pressure 130/80 06/10/2024 10:35 AM CDT Pulse 72 06/28/2020 12:51 PM CDT Temperature 36.7 C (98.1 F) 01/21/2020 9:06 AM COMMERCIAL ANALYST Respiratory Rate 18 01/21/2020 9:06 AM COMMERCIAL ANALYST Oxygen Saturation 99% 02/23/2020 2:04 PM COMMERCIAL ANALYST Inhaled Oxygen Concentration - - Weight 88.4 kg (194 lb 12.8 oz) 025 10:35 AM CDT Height 167.6 cm (5' 6) 06/10/2024 10:3 5 AM CDT Body Mass [...] Modality Other Jeremi Neil MD DEXA ORDERABLES Final Result from Last 3 Months or Most Recently Relevant to Health Maintenance Insurance MEDICARE [facility] UHC MANAGED MEDICARE ADV SELF PAY NO INSURANCE Member Subscriber Plan / Payer (Ef fective for All Dates) Name:Torie Rivers Member ID:Not on file Relation to Subscriber:Not on file Name:TORIE RIVERS Subscriber ID:Not on file Address: [address] Payer ID:Not on file Group ID:Not on file Type:Self Pay Address: [facility] MANAGED MEDICARE ADV Member Subscriber Plan / Payer (Ef fective 2024-Present) Name:Torie Rivers Relation to Subscriber:Self Name:Torie Rivers Payer ID:[id number] (NAIC) Type:Medicare-Managed Care Address: [address] Member Subscriber Plan / Payer (Ef fective for All Dates) Name:Torie Rivers Member ID:Not on file Relation to Subscriber:Not on file Name:TORIE RIVERS Subscriber ID:Not on file Address: [address] [place] [address] Payer ID:Not on file Group ID:Not on file Type:Self Pay Address: [facility] MEDICARE ADV * Guarantor: TORIE RIVERS Account Type Relation to Patient Date of Phone Billing Address Personal/Family 1945 [address] [place] [id number] Advance Directives Documents on File Type Date Recorded Patient Deli Worker Expl anation Adv Directive/Living Will/POA 01/25/2020 11:38 PM Adv Directive/Living Will/POA 04/12/2008 Care Teams Belling Machine Operator Relationship Specialty Start Date End Date Kevne Puga DO [address] [facility] [address] [place] [address] PCP - General Internal Medicine 09/28/22 Lloyd Grover PA-C [address] [facility] [address] [place] [address] Physician Carton Lettering Machine Operator 09/28/22 [place] [address] [facility] [address] [place] [address] Obstetrics and Gynecology 09/28/22
--- OUTSIDE RECORDS SUMMARY | 2024-08-18 07:14 | XMS_ITS | Encounter Summary ---
Author Organization [facility] Facility Care Team Providers Care Soil Technologist Name Role Phone No, Physician Primary Care Provider [phone] Lloyd Grover Primary Care Provider Hussain Mcgarry DO Primary Care Provider [phone] Encounter Details Date Type Department Care Team (Latest Contact Info) Description 05/27/2018 Orders Only [facility] CLINCONV Provider, MD Natasha [address] [place] [address] Social History Tobacco Use Types Packs/Day Years Used Date Smoking Tobacco: Never Assessed Comments Unknown Sex and Gender Information Value Date Recorded Sex Assigned at Not on file Legal Sex Female 8:35 AM BAG TESTER Gender Identity Not on file Sexual Orientation [...] on filedocumented in this encounter Care Teams Soil Technologist Relationship Specialty Start Date End Date No, Physician PCP - General 05/20/23 07/08/23 Lloyd Grover PA [address] [place] [address] PCP - General Physician Archery Equipment Repairer 07/09/23 07/16/24 Hussain Mcgarry DO [address] [place] [address] PCP - General Internal Medicine 07/17/24 documented as of this encounter
--- OUTSIDE RECORDS SUMMARY | 2024-08-18 07:14 | XMS_ITS | Clinical Summary ---
Author Organization [facility] Address [address] [place] [address] Care Team Providers Care Loss Prevention Supervisor Name Role Phone Hussain Mcgarry DO Primary Care Provider [phone] Allergies Active Allergy Reactions Criticality Noted Date [...] Type Department Care Team Description 07/23/2024 Telephone [facility] Cardiology [address] [facility] 8th [place] [address] [place] [address] Delgado Bertha 07/17/2024 8:45 AM CDT Office Visit [facility] Cardiology [address] [place] [address] José Luis Cleary MD Primary hypertension (Primary Dx); Mixed hyperlipidemia from Last 3 Months Immunizations Immunization Administration [...] on file Legal Sex Female 8:35 AM PUBLIC SPEAKER Gender Identity Not on file Sexual Orientation [...] 07/17/2024 8:50 AM CDT Plan of Treatment Health Maintenance [...] 02/15 Zoster Vaccine Completed 02/26/2020, 12/16, 12/15/2012 Insurance UHC MEDICARE ADVANTAGE [facility] MEDICARE ADVANTAGE Care Teams Loss Prevention Supervisor Relationship Specialty Start Date End Date Hussain Mcgarry DO [address] [facility] [address] [place], [place] [id number] PCP - General Internal Medicine 07/17/24
--- OUTSIDE RECORDS SUMMARY | 2024-08-18 07:14 | XMS_ITS | Encounter Summary ---
Author Organization [facility] Facility Care Team Providers Care Enamel Shader Name Role Phone No, Physician Primary Care Provider Lloyd Grover Primary Care Provider Hsusain Mcgarry DO Primary Care Provider [phone] Encounter Details Date Type Department Care Team (Latest Contact Info) Description 05/13/2018 Orders Only [facility] CLINCONV Provider, MD Natasha [address] [place] [address] Social History Tobacco Use Types Packs/Day Years Used Date Smoking Tobacco: Never Assessed Comments Unknown Sex and Gender Information Value Date Recorded Sex Assigned at Not on file Legal Sex Female 8:35 AM POTATO SORTER Gender Identity Not on file Sexual Orientation Not on file documented as of this encounter Plan of Treatment Not on file documented as of this encounter Procedures Procedure Name Priority Date/Time Associated Diagnosis Comments PROCEDURE - RESULT 05/13/2018 12 :00 AM POTATO SORTER documented in this encounter Results * PROCEDURE - RESULT (05/13/2018 12:00 AM POTATO SORTER) Narrative 05/13/2018 12:00 AM POTATO SORTER Ordered by an unspecified provider. Historical Provider Final Res ult documented in this encounter Visit Diagnoses Not on filedocumented in this encounter Care Teams Enamel Shader Relationship Specialty Start Date End Date No, Physician PCP - General 05/20/23 07/08/23 Lloyd Grover PA [address] [place] [address] PCP - General Physician Loan Administrator 07/09/23 07/16/24 Hussain Mcgarry DO [address] [place] [address] PCP - General Internal Medicine 07/17/24 documented as of this encounter
--- OUTSIDE RECORDS SUMMARY | 2024-08-18 07:15 | XMS_ITS | Continuity of Care Document ---
Author Organization [facility] Address [address] [place] [address] [place] [address] Phone Care Team Providers Care Dogger Name Role Phone Ryan Villanueva Unavailable Unavailable [...] Diagnoses Date Provider Providers Copied on Encounter [facility], [address] [place] [address] [address], [place], [place], [id number], [place] tel:[phone] [facility] No Information 0 Kay Davis. [facility] [address], [place], [address], [place]. tel:[phone] Referring Provider: Keisha Valera [facility] [address], [place], [address]. tel:[phone] [facility], [address] [place] [address] [address], [place], [place], [id number], [place] tel:[phone] [facility] No Information Alexander-0 3-201 0 Payton OD Gerber. Critical access hospital1 [facility] , [address], [place], [address], [place]. tel:[phone] [facility], [address], [place], [place], [address], [place] tel:[phone] [facility] No Information Alexander-0 3-201 0 [facility] . [address] [facility], [address], [place], [place], [address], [place]. tel:[phone] Referring Provider: Gerber Tobias, [address] [place], [place] [address]ate Center [address], [place], [address]. tel:[phone] sulting Provider: Gena Phoenix, [address] [place] [address], [facility]. tel:[phone] [facility], [address] [place] [address] [address], [place], [place], [address], [place] tel:[phone] [facility] No Information May-0 7-201 0 [facility] [employer] . [address] [facility], [address], [place], [place], [address], [place]. tel:[phone] Referring Provider: Ryan Tobias, [address] [place], [place] [address]ate [address], [place], [address]. tel:[phone] sulting Provider: Gena Phoenix, [address] [place] [address], [address]. tel:[phone] [facility], [address], [place], [place], [address], [place] tel:[phone] [facility] No Information Apr-0 5-201 0 Kay Davis. [address] [place], [place] [address]ate [address], [address], [place], [address], [place]. tel:[phone] [facility], [address], [place], [place], [address], [place] tel:[phone] [facility] No Information [address] Kay Davis. [address], [address], [place], [place], [facility], . tel:[phone] Referring Provider: Ryan Tobias, Critical access hospitalJoanna Corporate [address], [place], [place], [facility]. tel:[phone] [facility], [address], [place], [place], [address], tel:[phone] [facility] No Information [address] Kay Davis. Critical [facility]1 [facility] [address], [address], [place], [place], [facility], . tel:[phone] [facility], [address], [place], [place], [address], tel:[phone] [facility] No Information [address] Gerber. Critical access hospital1 [facility] [address], [address], [place], [place], [facility], . tel:[phone] Office/outpat ient Visit, Est [facility], [address] [place] [address] [address], [place], [place], [id number], tel:[phone] [facility] No Information [address] Kay Davis. [address] [place], [place] [address]ate [address], [address], [place], [place], [facility], . tel:[phone] Family History Family Member Type Diagnosis Age [...]
--- OUTSIDE RECORDS SUMMARY | 2024-08-18 07:15 | XMS_ITS | Clinical Summary ---
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 Not on file Not on file No [...] 2:02 PM CDT Height 167.6 cm (5' 6) 12/17/2012 2:02 PM CDT Body Mass Index 29.05 12/17/2012 2:02 PM CDT Plan of Treatment Health Maintenance Due Date Last Done Comments DTAP/TDAP/TD VACCINES (1 - Tdap) 1964 ZOSTER VACCINE (2 of 3) 02/09/2013 12/15/2012 PNEUMOCOCCAL VACCINE 50+ YEARS (2 of 2 - PCV) 03/04/20 14 03/04/2013 OSTEOPOROSIS SCREENING 01/20/2016 01/19/2011 RSV VACCINE (60+ or ) (1 - 1-dose 75+ series) 2021 INFLUENZA VACCINE (#1) 2023 01/19/2013 COLORECTAL SCREENING Discontinued 02/18/2002 Colorectal Cancer Screening Discontinued FIT-DNA Q 3 years Discontinued FIT/FOBT Q 1 year Discontinued Flex Sig/CT Colonography Q 5 years Discontinued Insurance MEDICARE PART A AND B Care Teams Scratch Finisher Relationship Specialty Start Date End Date Darrian Iyer Jr., MD PCP - General Internal Medicine 02/19/12
--- OUTSIDE RECORDS SUMMARY | 2024-08-18 07:15 | XMS_ITS | Continuity of Care Document ---
Author Organization [facility] Address [address] [place] [address] Phone Care Team Providers Care Quality Lead Name Role Phone Aden Laguerre DO Unavailable [...] Diagnoses Date Provider Providers Copied on Encounter [facility], [address], [place], [place], [address] , tel: [phone] Carlotta No Information Carlotta Samaniego. [address] [employer], [address], [place], [place], [address] , [place]. tel: [phone] [facility], [address], [place], [place], [address] , tel: [phone] Laguerre ACUTE SINUSITIS NOSDYSFUNCT EUSTACHIAN TUBE 8 Mercedes Meredith. [address] [employer], [address], [place], [place], [address] . tel: [phone] [facility], [address], [place], [place], [address] , [place] tel: [phone] Laguerre TMJ DISORDERS NOSLONG-TERM USE MEDS [facility] 9-200 7 Mercedes Meredith. [address] [employer], [address], [place], [place], [address] . tel: [phone] [facility], [address], [place], [place], [address] , tel: [phone] Laguerre OSTEOPOROSIS NOSVAGINITIS NOSBENIGN NEOPLASM NEC 200 7 Carlotta Samaniego. [address] [facility], [place], [place], [address] , [place]. tel: [phone] [facility], [address], [place], [place], [address] , [place] tel:[phone] Laguerre RHINITIS DUE TO POLLEN 7 Carlotta Samaniego. [address] [facility], [place], [place], [address] , [place]. tel: [phone] [facility] [employer], [address], [place], [place], [address] , [place] tel:[phone] Laguerre JOINT PAIN-HAND 6 Long Viri. [address] [facility], [place], [place], [address] . tel: [phone] [facility] [employer], [address], [place], [place], [address] , [place] tel:[phone] Laguerre FINGER INJURY NOS 6 Laguerrelarry Samaniego. [address] [facility], [place], [place], [address] , [place]. tel: [phone] [facility], [address], [place], [place], [address] , [place] tel:[phone] Laguerre SYNOV/TEND/BURSA DIS NECSEBACEOUS CYST 1200 6 Laguerrelarry Samaniego. [address] [facility], [place], [place], [address] , [place]. tel: [phone] [facility], [address], [place], [place], [address] , [place] tel:[phone] Laguerre DEPRESSIVE DISORDER NECMIXED HYPERLIPIDEMIAOTH SPECFD VIRAL WARTSHEARING LOSS NOS 8-200 5 Laguerrelarry Samaniego. [address] [facility], [place], [place], [address] , [place]. tel: [phone] [facility], [address], [place], [place], [address] , [place] tel: [phone] Laguerre ANXIETY STATE NOSOTH R MIGRNE WO [facility] 0-200 5 Carlotta Aden. [address] [facility] [address], [place], [place], [address] , [place]. tel: [phone] [facility], [address], [place], [place], [address] , [place] tel: [phone] Laguerre ACUTE NASOPHARYNGITISACUTE BRONCHITIS 4-200 4 [address]. [address] [facility] [address], [place], [place], [address] . tel: [phone] [facility], [address], [place], [place], [address] , [place] tel:[phone] Laguerre MALAISE AND FATIGUE NEC 0-200 4 Long Vir[address]. [address] [facility] [address], [place], [place], [address] . tel: [phone] [facility], [address], [place], [place], [address] , [place] tel: [phone] Laguerre JOINT PAIN-L/LEG Nov- 9200 3 [address]. [address] [facility] [address], [place], [place], [address] . tel: [phone] [facility], [address], [place], [place], [address] , [place] tel: [phone] Laguerre JOINT PAIN-FOREARM 9200 3 [address] [facility] [address], [place], [place], [address] . tel: [phone] [facility], [address], [place], [place], [address] , [place] tel: [phone] Laguerre SYMPT FEM CLIMACT STATE Sep-0 4200 2 [address]. [address] [facility] [address], [place], [place], [address] . tel: [phone] [facility], [address], [place], [place], [address] , [place] tel: [phone] Laguerre BREAST DISORDER NOS Feb-2 3-200 1 [address]. [address] [facility], [place], [place], [address] . tel: [phone] [facility], [address], [place], [place], [address] , tel: [phone] Laguerre SYNOVITIS NOS 6-200 0 Laguerre Aden. [address] [facility], [place], [place], [address] , . tel: [phone] [facility] [employer], [address], [place], [place], [address] , tel: [phone] Laguerre SPRAIN SHOULDER/ARM NEC 2-200 0 Long Viri. [address] [facility], [place], [place], [address] . tel: [phone] [facility], [address], [place], [place], [address] , tel: [phone] Laguerre PREMENOPAUSE MENORRHAGIAFLUSHING 9-199 9 Long Viri. [address] [facility], [place], [place], [address] . tel: [phone] [facility] [address], [place], [place], [address] , tel: [phone] Laguerre NEVUS, NON-NEOPLASTICSKIN HYPERTRO/ATROPH NOS 7-199 9 Long Viri. [facility] [place], [place], [address] . tel: [phone] Family History Family Member Type Diagnosis Age At Onset No Information Payers Payer name Insurance type Covered alliance party ID Authoriza tion(s) No Information Social [...]
[2024-08-18 11:02] LABS: Alanine Aminotransferase 22 U/L (6-35); Albumin Level 4.1 g/dL (3.5-5.1); Alkaline Phosphatase 77 U/L (38-126); Anion Gap 8 mmol/L (4-12); Aspartate Amino Transferase 28 U/L (14-36); Bilirubin,Total 0.4 mg/dL (0.2-1.3); Blood Urea Nitrogen 18 mg/dL (7-17); Calcium 9.1 mg/dL (8.4-10.2); Carbon Dioxide 23 mmol/L (22-30); Chloride 110 mmol/L (98-107); Cholesterol 203 mg/dL (0-200); Estimated Glomerular Filt Rate > 60; Glucose 92 mg/dL (65-110); HDL Direct 50 mg/dL; Potassium 4.3 mmol/L (3.4-5.0); Sodium 141 mmol/L (137-145); Total Protein 6.9 g/dL (6.3-8.2); Triglycerides 107 mg/dL (<150)
[2024-08-18 11:13] LABS: LDL Cholesterol Direct 102 mg/dL
[2024-08-18 13:49] LABS: Hemoglobin A1C 5.2 % (<5.7)
== END 2024-08-18 07:09 | disposition home or self-care (01) ==
PROVIDERS: PCP Internal Medicine; Visit Provider Internal Medicine
DX: I25.10 Atherosclerotic heart disease of native coronary artery without angina pectoris (principal); R73.9 Hyperglycemia, unspecified; R53.83 Other fatigue; E78.5 Hyperlipidemia, unspecified
CPT/HCPCS: 36415; 80053; 80061; 83036; 84443